=== PATIENT | female | born 1940 | race Caucasian/White ===

== ENCOUNTER → 2017-11-07 12:43 | Outpatient (CLI) | payer MEDICARE, BC, SELFPAY ==
[2017-11-07 14:45] LABS: AST(SGOT) 19 U/L (15-37); Alanine Aminotransfer ALT/SGPT 11 U/L (13-56); Albumin, Serum 4.2 g/dL (3.2-5.0); Alkaline Phosphatase 69 U/L (45-117); Anion Gap 8 (5-15); BUN 11 mg/dL (7-18); BUN/Creat Ratio 13.5 RATIO (10-20); Calcium,Total 9.1 mg/dL (8.5-10.1); Chloride 102 mmol/L (98-107); Creatinine, Serum 0.81 mg/dL (0.55-1.02); EST Glomerular Filtration Rate 72 mL/min (>60); Est Glom Filt Rate - Afr Amer 87 mL/min (>60); Glucose 82 mg/dL (74-106); Potassium 4.1 mmol/L (3.5-5.1); Protein, Total 8.2 g/dL (6.4-8.2); Sodium Level 137 mmol/L (136-145)
[2017-11-07 14:48] LABS: Absolute Lymphocyte Count 1.75 X10^3/ul (0.83-4.51); Absolute Neutrophil Count 2.6 X10^3/uL (2.0-7.7); Basophil# 0.03 X10^3/uL; Basophil% 0.6 % (0-1); Eosinophils% 1.9 % (0-5); Hematocrit 41.7 % (37-47); Hemoglobin 13.5 g/dl (12.0-15.0); Lymphocyte # 1.75 X10^3/ul (4.0); Lymphocyte % 33.7 % (19-41); Mean Corp Hgb Conc 32.4 g/gl (32-36); Mean Corpuscular Hgb 31.8 pg (27.0-32.0); Mean Corpuscular Volume 98.1 fL (81-99); Monocyte# 0.74 X10^3/uL; Monocyte% 14.2 % (0-10); Neutrophil # 2.58 X10^3/uL (2.7-7.7); Neutrophil % 49.6 % (47-70); Platelet Count 294 K/mm3 (150-450); RBC Distribution Width SD 48.5 fl (35.1-43.9); Red Blood Count 4.25 M/mm3 (4.2-5.4); White Blood Count 5.2 K/mm3 (4.4-11.0)
[2017-11-07 14:57] LABS: POSITIVE COUNT NO; POSITIVE DIFFERENTIAL NO; POSITIVE MORPHOLOGY NO
== END ==
PROVIDERS: Family Provider Internal Medicine; PCP Internal Medicine; Visit Provider Internal Medicine Rheumatology
DX: M05.70 Rheumatoid arthritis with rheumatoid factor of unspecified site without organ or systems involvement (principal); Z79.899 Other long term (current) drug therapy; M18.11 Unilateral primary osteoarthritis of first carpometacarpal joint, right hand; M17.0 Bilateral primary osteoarthritis of knee; M16.0 Bilateral primary osteoarthritis of hip
CPT/HCPCS: 36415; 80053; 85025

== ENCOUNTER → 2018-01-30 09:37 | Outpatient (CLI) | payer MEDICARE, BC, SELFPAY ==
[2018-01-30 12:15] LABS: Absolute Lymphocyte Count 1.69 X10^3/ul (0.83-4.51); Basophil# 0.03 X10^3/uL; Basophil% 0.6 % (0-1); Eosinophil# 0.19 X10^3/uL; Eosinophils% 4.1 % (0-5); Hematocrit 41.7 % (37-47); Hemoglobin 13.5 g/dl (12.0-15.0); Lymphocyte # 1.69 X10^3/ul (4.0); Lymphocyte % 36.2 % (19-41); Mean Corp Hgb Conc 32.4 g/gl (32-36); Mean Corpuscular Hgb 31.5 pg (27.0-32.0); Mean Corpuscular Volume 97.2 fL (81-99); Mean Platelet Vol. 9.2 fl (6.2-12.0); Monocyte# 0.76 X10^3/uL; Monocyte% 16.3 % (0-10); Neutrophil % 42.8 % (47-70); Platelet Count 314 K/mm3 (150-450); RBC Distribution Width CV 13.5 % (11.6-14.6); RBC Distribution Width SD 46.6 fl (35.1-43.9); Red Blood Count 4.29 M/mm3 (4.2-5.4); White Blood Count 4.7 K/mm3 (4.4-11.0)
[2018-01-30 12:31] LABS: AST(SGOT) 13 U/L (15-37); Alanine Aminotransfer ALT/SGPT 13 U/L (13-56); Albumin, Serum 4.2 g/dL (3.2-5.0); Alkaline Phosphatase 68 U/L (45-117); Anion Gap 9 (5-15); BUN 10 mg/dL (7-18); BUN/Creat Ratio 11.8 RATIO (10-20); Chloride 100 mmol/L (98-107); Creatinine, Serum 0.84 mg/dL (0.55-1.02); EST Glomerular Filtration Rate 69 mL/min (>60); Est Glom Filt Rate - Afr Amer 84 mL/min (>60); Globulin 4.1 g/dL (2.2-4.2); Glucose 86 mg/dL (74-106); Potassium 3.8 mmol/L (3.5-5.1); Protein, Total 8.3 g/dL (6.4-8.2); Sodium Level 136 mmol/L (136-145)
[2018-01-30 12:41] LABS: POSITIVE COUNT NO; POSITIVE DIFFERENTIAL NO; POSITIVE MORPHOLOGY NO
== END ==
PROVIDERS: Family Provider Internal Medicine; PCP Internal Medicine; Visit Provider Internal Medicine Rheumatology
DX: M05.70 Rheumatoid arthritis with rheumatoid factor of unspecified site without organ or systems involvement (principal); Z79.899 Other long term (current) drug therapy; M15.9 Polyosteoarthritis, unspecified; M18.11 Unilateral primary osteoarthritis of first carpometacarpal joint, right hand; M17.0 Bilateral primary osteoarthritis of knee; M16.0 Bilateral primary osteoarthritis of hip; M47.897 Other spondylosis, lumbosacral region; G20 Parkinson's disease; I10 Essential (primary) hypertension; E78.5 Hyperlipidemia, unspecified; E03.9 Hypothyroidism, unspecified
CPT/HCPCS: 36415; 80053; 85025

== ENCOUNTER → 2018-04-26 09:56 | Outpatient (CLI) | payer MEDICARE, BC, SELFPAY ==
[2018-04-26 12:24] LABS: Absolute Lymphocyte Count 1.55 X10^3/ul (0.83-4.51); Absolute Neutrophil Count 3.1 X10^3/uL (2.0-7.7); Basophil# 0.03 X10^3/uL; Basophil% 0.6 % (0-1); Eosinophils% 1.9 % (0-5); Hemoglobin 13.2 g/dl (12.0-15.0); Lymphocyte # 1.55 X10^3/ul (4.0); Lymphocyte % 29.1 % (19-41); Mean Corp Hgb Conc 31.4 g/gl (32-36); Mean Corpuscular Hgb 30.7 pg (27.0-32.0); Mean Corpuscular Volume 97.7 fL (81-99); Mean Platelet Vol. 9.1 fl (6.2-12.0); Monocyte# 0.53 X10^3/uL; Neutrophil # 3.11 X10^3/uL (2.7-7.7); Neutrophil % 58.4 % (47-70); Platelet Count 288 K/mm3 (150-450); RBC Distribution Width CV 13.8 % (11.6-14.6); RBC Distribution Width SD 49.1 fl (35.1-43.9); White Blood Count 5.3 K/mm3 (4.4-11.0)
[2018-04-26 12:28] LABS: POSITIVE COUNT NO; POSITIVE DIFFERENTIAL NO; POSITIVE MORPHOLOGY NO
[2018-04-26 12:33] LABS: ALB/GLOB Ratio 1.2 RATIO (0.9-2.4); AST(SGOT) 15 U/L (15-37); Alanine Aminotransfer ALT/SGPT 12 U/L (13-56); Albumin, Serum 4.2 g/dL (3.2-5.0); Alkaline Phosphatase 76 U/L (45-117); Anion Gap 10 (5-15); BUN 7 mg/dL (7-18); BUN/Creat Ratio 9.4 RATIO (10-20); Chloride 102 mmol/L (98-107); Creatinine, Serum 0.74 mg/dL (0.55-1.02); EST Glomerular Filtration Rate 80 mL/min (>60); Est Glom Filt Rate - Afr Amer 97 mL/min (>60); Globulin 3.4 g/dL (2.2-4.2); Glucose 83 mg/dL (74-106); Potassium 4.2 mmol/L (3.5-5.1); Protein, Total 7.6 g/dL (6.4-8.2); Sodium Level 138 mmol/L (136-145)
== END ==
PROVIDERS: Family Provider Internal Medicine; PCP Internal Medicine; Visit Provider Internal Medicine Rheumatology
DX: M05.70 Rheumatoid arthritis with rheumatoid factor of unspecified site without organ or systems involvement (principal); Z79.899 Other long term (current) drug therapy; M15.9 Polyosteoarthritis, unspecified; M18.11 Unilateral primary osteoarthritis of first carpometacarpal joint, right hand; M17.0 Bilateral primary osteoarthritis of knee; M16.0 Bilateral primary osteoarthritis of hip; M47.897 Other spondylosis, lumbosacral region; G20 Parkinson's disease; I10 Essential (primary) hypertension; E78.5 Hyperlipidemia, unspecified; E03.9 Hypothyroidism, unspecified
CPT/HCPCS: 36415; 80053; 85025

== ENCOUNTER → 2018-07-18 09:28 | Outpatient (CLI) | payer MEDICARE, BC, SELFPAY ==
[2018-07-18 11:59] LABS: Absolute Lymphocyte Count 1.68 X10^3/ul (0.83-4.51); Absolute Neutrophil Count 3.4 X10^3/uL (2.0-7.7); Basophil# 0.03 X10^3/uL; Basophil% 0.5 % (0-1); Eosinophil# 0.14 X10^3/uL; Eosinophils% 2.4 % (0-5); Hematocrit 42.4 % (37-47); Hemoglobin 13.5 g/dl (12.0-15.0); Lymphocyte # 1.68 X10^3/ul (4.0); Lymphocyte % 28.6 % (19-41); Mean Corp Hgb Conc 31.8 g/gl (32-36); Mean Corpuscular Hgb 31.7 pg (27.0-32.0); Mean Corpuscular Volume 99.5 fL (81-99); Mean Platelet Vol. 9.4 fl (6.2-12.0); Monocyte# 0.66 X10^3/uL; Monocyte% 11.2 % (0-10); Neutrophil # 3.36 X10^3/uL (2.7-7.7); Neutrophil % 57.3 % (47-70); Platelet Count 287 K/mm3 (150-450); RBC Distribution Width CV 14.3 % (11.6-14.6); RBC Distribution Width SD 50.9 fl (35.1-43.9); Red Blood Count 4.26 M/mm3 (4.2-5.4); White Blood Count 5.9 K/mm3 (4.4-11.0)
[2018-07-18 12:01] LABS: POSITIVE COUNT NO; POSITIVE DIFFERENTIAL NO; POSITIVE MORPHOLOGY NO
[2018-07-18 12:27] LABS: ALB/GLOB Ratio 1.1 RATIO (0.9-2.4); AST(SGOT) 14 U/L (15-37); Alanine Aminotransfer ALT/SGPT 13 U/L (13-56); Albumin, Serum 4.1 g/dL (3.2-5.0); Alkaline Phosphatase 69 U/L (45-117); Anion Gap 7 (5-15); BUN 13 mg/dL (7-18); BUN/Creat Ratio 16.2 RATIO (10-20); Calcium,Total 8.8 mg/dL (8.5-10.1); Chloride 101 mmol/L (98-107); EST Glomerular Filtration Rate 73 mL/min (>60); Est Glom Filt Rate - Afr Amer 89 mL/min (>60); Globulin 3.9 g/dL (2.2-4.2); Glucose 83 mg/dL (74-106); Sodium Level 135 mmol/L (136-145)
--- OUTSIDE RECORDS SUMMARY | 2018-09-12 10:26 | XMS RPT_ITS ---
:1940 Author Organization OHIP Support Name Relationship Address Phone AUNG ORONA Unavailable [id number] + [place] [address] GISSELLE GAITAN Unavailable [address] + [place] [address] R Unavailable Unavailable Unavailable AUNG ORONA Unavailable [id number] +[phone] [place] [address] GISSELLE GAITAN Unavailable [address] + [place] [address] R Unavailable Unavailable Unavailable AUNG ORONA Unavailable [address] +[phone] [place] [address] GISSELLE GAITAN Unavailable [address] + [place] [address] R Unavailable Unavailable Unavailable AUNG ORONA Unavailable [id number] [facility] [address] + [place] [address] GISSELLE GAITAN Unavailable [address] [facility] [address] + [place] [address] R Unavailable Unavailable Unavailable AUNG ORONA Unavailable [address] [facility] [address] +[phone] [place] [address] GISSELLE GAITAN Unavailable [address] [facility] [address] +[phone] [place] [address] R Unavailable Unavailable Unavailable Care Team Providers Name Role Phone LUCIAN BAHENA Referring Unavailable LUCIAN BAHENA Attending Unavailable LUCIAN BAHENA Referring Unavailable LUCIAN BAHENA Referring Unavailable LUCIAN BAHENA Referring Unavailable LUCIAN BAHENA Attending Unavailable LUCIAN BAHENA Referring Unavailable Mercy Rajput Attending Unavailable Lucian Bahena Primary Care Unavailable Mercy Rajput Attending Unavailable Lucian Bahena Primary Care Unavailable Mercy Rajput Attending Unavailable Mercy Rajput Referring Unavailable Lucian Bahena Primary Care Unavailable Mercy Rajput Attending Unavailable Mercy Rajput Referring Unavailable Lucian Bahena Primary Care Unavailable Mercy Rajput Attending Unavailable Mercy Rajput Referring Unavailable Lucian Bahena Primary Care Unavailable PROBLEMS PROBLEMS DATE TYPE CONDITION / CODE ATTENDING STATUS SOURCE 11/12/2017 Active Encounter for NA Active screening for [facility] [place] malignant Repository neoplasm of colon / Z12.11(ICD-10) 10/26/2017 Active Other fci NA Active (current) drug [facility] [place] therapy / Repository Z79.899(ICD-10) PROCEDURES PROCEDURES No Procedure Records FoundRESULTS RESULTS CBC W/DIFF, AUTOMATED Collected: 07/18/2018 Status: F Source: [place] 9:33 AM [facility] REPOSITORY TYPE CODE TESTS RESULT OUT OF RANGE REFERENCE UNITS LAB L100.1000 4.4-11.0 K/mm3 Normal WBC 5.9 LAB L100.1200 4.2-5.4 M/mm3 Normal RBC 4.26 LAB L100.1300 12.0-15.0 g/dl Normal HGB 13.5 LAB L100.1400 37-47 % Normal HCT 42.4 LAB L100.1500 81-99 fL High MCV 99.5 LAB L100.1600 27.0-32.0 pg Normal MCH 31.7 LAB L100.1700 32-36 g/gl Low MCHC 31.8 LAB L100.1810 11.6-14.6 % Normal RDW CV 14.3 LAB L100.1820 35.1-43.9 fl High RDW SD 50.9 LAB L100.1900 150-450 K/mm3 Normal PLT 287 LAB L100.2000 6.2-12.0 fl Normal MPV 9.4 LAB L100.2100 47-70 % Normal NEUT% 57.3 LAB L100.2200 19-41 % Normal LY% 28.6 LAB L100.2300 0-10 % High MONO% 11.2 LAB L100.2400 0-5 % Normal EO% 2.4 LAB L100.2500 0-1 % Normal BASO% 0.5 LAB L100.2550 0.0-0.9 % Normal IM GRAN % 0.000 Result Comment: IG% - Immature Granulocytes (promyelocytes, myelocytes and metamyelocytes) > 1% indicates that a LEFT SHIFT is Present. LAB L100.2620 2.0-7.7 X10 3/uL Normal Absolute Neut 3.4 LAB L100.2720 0.83-4.51 X10 3/ul Normal Absolute Lymph 1.68 Performed By: #### L100.0100 #### [facility] [address] [place], [address] COMPREHENSIVE METABOLIC Collected: 07/18/2018 Status: F Source: [facility] 9:33 AM [facility] REPOSITORY TYPE CODE TESTS RESULT OUT OF RANGE REFERENCE UNITS LAB L501.0100 74-106 mg/dL Normal GLU 83 Result Comment: Please note revised GLUCOSE reference range effective 2017. LAB L501.1000 7-18 mg/dL Normal BUN 13 LAB L501.1100 0.55-1.02 mg/dL Normal CREAT,SERUM 0.80 Result Comment: The validity of the calculated GFR AND GFRAA in patients over 70 years has not been determined. Clinical correlation is essential. LAB L501.1110 >60 mL/min Normal EST GFR 73 Result Comment: Non- GFR Calc LAB L501.1115 >60 mL/min Normal EST GFR - AA 89 Result Comment: GFR Calc LAB L501.1300 10-20 RATIO Normal BUN/CRE 16.2 LAB L501.1500 6.4-8.2 g/dL T Normal PROT 8.0 LAB L501.1800 3.2-5.0 g/dL Normal ALB 4.1 LAB L501.1950 2.2-4.2 g/dL Normal GLOB 3.9 LAB L501.2000 0.9-2.4 RATIO Normal A/G 1.1 LAB L501.2200 8.5-10.1 mg/dL CA Normal 8.8 LAB L501.4100 15-37 U/L Low AST 14 LAB L501.4305 45-117 U/L Normal ALK P 69 LAB L501.4405 13-56 U/L Normal ALT 13 LAB L501.4600 0.20-1.00 mg/dL High T BILI 1.20 LAB L501.5300 136-145 mmol/L Low NA 135 LAB L501.5600 3.5-5.1 mmol/L K Normal 4.0 LAB L501.5900 98-107 mmol/L CL Normal 101 LAB L501.6100 21.0-32.0 mmol/L Normal CO2 27.0 LAB L501.6200 5-15 Normal GAP 7 Performed By: #### L500.4050 #### [facility] [place], [address] PROGRESS Observed: 06/07/2018 Status: COMPLETED Source: [place] 10:54 AM [facility] [place] REPOSITORY HNO ID: [id number] Author: Marvel Santana LPN Service: (none) Author Type: (none) Type: Progress Notes Filed: 06/07/2018 10:55 AM Note Text: 77 year old female here for INACTIVATED INFLUENZA VACCINE. 1369-7706 Season Patient is identified by name and date of : Yes [] CONTRAINDICATIONS color enhanced section Age less than 6 months? No Allergy to eggs, chicken, chicken feathers, or chicken dander? No Allergy to thimerosal (a preservative) or formaldehyde, gelatin? No History of severe reaction to any vaccine component or a previous dose of influenza vaccination? No History of Guillain-Lovelock Syndrome within 6 weeks after a previous influenza vaccine? No Patient is not moderately or severely ill? No Current temperature greater or equal to 100.4F? No History of Bone Marrow Transplant prior 6 months or solid organ transplant in the past 3 months ? No History of fainting after a prior injection or medical procedure? No- ? If patient has fainted in the past, the CDC recommends sitting or lying down for 15 minutes after the vaccination. [] VERIFICATION color enhanced section Was the answer Yes for any of the above contraindications? No contraindications present. Acceptable to proceed with vaccine. Patient/guardian agrees the above answers are true to the best of their knowledge? Yes Flu vaccine information sheet given? Yes See immunization activity in [facility] for details of immunizations adminstered today. Patient age: [age] year old For The 0974-2844 Flu Season 6-35 months old: Fluzone 0.25 ml - IM (Preservative Free) 3 years of age: Fluzone 0.5 ml - IM (Preservative Free) 3 years and older: Fluzone 0.5 ml- IM-(with Preservatives) 65+ years old: 2-49 years old Fluzone High-Dose 0.5 ml - IM (Preservative Free) FLUMIST- intranasal REMEMBER: If patient is less than 9 years of age and this is the first vaccine of Influenza to be received in any flu season, they should receive a second dose in one months time. CNNURSE Observed: 06/07/2018 Status: COMPLETED Source: [place] 10:30 AM [facility] REPOSITORY Nurse Visit (FAMPWS) GRACIELA ORONA ([id number]) 1940 F [facility] Date Time Provider Department 06/07/18 10:30 AM [facility] During your visit today, we recorded the following information about you: Temperature 98 degrees Marvel Santana LPN 06/07/2018 10:55 AM Signed 77 year old female here for INACTIVATED INFLUENZA VACCINE. 0130-2705 Season Patient is identified by name and date of : Yes [] CONTRAINDICATIONS color enhanced section Age less than 6 months? No Allergy to eggs, chicken, chicken feathers, or chicken dander? No Allergy to thimerosal (a preservative) or formaldehyde, gelatin? No History of severe reaction to any vaccine component or a previous dose of influenza vaccination? No History of Guillain-Lovelock Syndrome within 6 weeks after a previous influenza vaccine? No Patient is not moderately or severely ill? No Current temperature greater or equal to 100.4F? No History of Bone Marrow Transplant prior 6 months or solid organ transplant in the past 3 months ? No History of fainting after a prior injection or medical procedure? No- ? If patient has fainted in the past, the CDC recommends sitting or lying down for 15 minutes after the vaccination. [] VERIFICATION color enhanced section Was the answer Yes for any of the above contraindications? No contraindications present. Acceptable to proceed with vaccine. Patient/guardian agrees the above answers are true to the best of their knowledge? Yes Flu vaccine information sheet given? Yes See immunization activity in [facility] for details of immunizations adminstered today. Patient age: [age] year old For The 1667-2383 Flu Season 6-35 months old: Fluzone 0.25 ml - IM (Preservative Free) 3 years of age: Fluzone 0.5 ml - IM (Preservative Free) 3 years and older: Fluzone 0.5 ml- IM-(with Preservatives) 65+ years old: 2-49 years old Fluzone High-Dose 0.5 ml - IM (Preservative Free) FLUMIST- intranasal REMEMBER: If patient is less than 9 years of age and this is the first vaccine of Influenza to be received in any flu season, they should receive a second dose in one months time. Referring Provider: LUCIAN BAHENA [[id number]] Allergies As of Date: 06/07/2018 Noted Allergy Reaction BACTRIM (SULFAMETHOXAZOLE) 12/15/2009 7 - Swelling ESTROGENS 02/05/2006 14 - Other: See Comments Comments: Visual spots. STATINS ([id number]-MTB REDUCTAS*11/06/2008 Comments: Muscle pain Date Reviewed: 05/08/2018 Reviewed by: Gala Gonzalez LPN - Fully Assessed Reason for Visit: Imm/Inj [58] Cmt: Flu Vaccine Primary Visit Diagnosis:Need for vaccination [Z23] Order(s):INFLUENZA SEASONAL HIGH DOSE AGE 65+ [[id number]] Order #: [id number] Prescriptions as of 06/07/2018 Sig: LEVOTHYROXINE 88 MCG TABLET Take 1 tablet by mouth once d* CARBIDOPA 25 MG-LEVODOPA 100 * Take 1 tablet by mouth five t* DILTIAZEM SR 180 MG 24 HR CAP Take 1 capsule by mouth once * TRIAMCINOLONE ACETONIDE 0.1 %* Apply 1 application to affect* TRAMADOL 50 MG TABLET Take 1 tablet by mouth every * NYSTATIN 100,000 UNIT/GRAM TO* Apply 1 application to affect* BIOTIN 5 MG CAPSULE Take 1 capsule by mouth once * OMEGA-3 FATTY ACIDS 1,000 MG * Take 1 capsule by mouth once * LEUCOVORIN CALCIUM 15 MG TABL* Take 1 tablet by mouth once e* METHOTREXATE SODIUM 2.5 MG TA* Take 6 tablets by mouth once * * ASCORBIC ACID (VITAMIN C) 500* Take 1 tablet by mouth once d* * FOLIC ACID 1 MG TABLET Take two (2) tablets daily. * ECOTRIN LOW STRENGTH 81 MG TA* Take one(1) tablet daily. * CENTRUM SILVER TABLET Take one(1) tablet daily. Problem List As Of Date 06/07/2018 Noted Resolved BENIGN HYPERTENSION [I10] INVALID FOR* Other hyperlipidemia [E78.49] INVALID FOR* Hypothyroidism [E03.9] INVALID FOR* Chronic rhinitis [J31.0] INVALID FOR*06/04/2014 Personal history of other malignant neoplasm of*INVALID FOR* More... Rheumatoid arthritis (HCC) [M06.9] INVALID FOR* Osteoarthritis [M19.90] INVALID FOR*11/01/2017 OA (osteoarthritis) of knee [M17.10] INVALID FOR* More... Parkinsonism (HCC) [G20] INVALID FOR* More... Abnormal mammogram, unspecified [R92.8] INVALID FOR*02/01/2017 Clostridium difficile diarrhea [A04.72] INVALID FOR*03/16/2016 Debility [R53.81] INVALID FOR* Sinus tachycardia [R00.0] INVALID FOR* Encounter Status:Closed by MARVEL SANTANA LPN on 06/07/18 PROGRESS Observed: 05/08/2018 Status: COMPLETED Source: [place] 10:21 AM [facility] REPOSITORY HNO ID: [id number] Author: Lucian Bahena Service: (none) Author Type: Physician Type: Progress Notes Filed: 05/08/2018 10:39 AM Note Text: This note was created using Fulhamriter. Subjective Graciela Orona is a 77 year old female here for follow up. Listed conditions were stable. Recent labs from Dr. Rajput were noted. She was doing well. ACTIVE PROBLEM LIST Essential Hypertension, Benign Other Hyperlipidemia Hypothyroidism Personal history of other malignant neoplasm of skin Rheumatoid Arthritis (Hcc) Oa (Osteoarthritis) of Knee Parkinsonism (Hcc) Debility Sinus Tachycardia Current Outpatient Prescriptions: carbidopa-levodopa (SINEMET 25-100) 25-100 mg per tablet Take 1 tablet by mouth five times daily. Dr. Tian, [facility]. SYNTHROID 88 mcg tablet Take 1 tablet by mouth once daily. diltiazem CD (CARDIZEM CD) 180 mg 24 hr capsule Take 1 capsule by mouth once daily. triamcinolone acetonide (KENALOG) 0.1 % cream Apply 1 application to affected area three times daily. Apply sparingly to area for rash/itching. traMADol (ULTRAM) 50 mg tablet Take 1 tablet by mouth every 8 hours as needed for Pain. nystatin (MYCOSTATIN) powder Apply 1 application to affected area four times daily. biotin 5 mg caspule Take 1 capsule by mouth once daily. omega-3 fatty acids 1,000 mg cap Take 1 capsule by mouth once daily. leucovorin (LEUCOVORIN) 15 mg tablet Take 1 tablet by mouth once each week. Dr. Rajput Methotrexate Sodium (RHEUMATREX) 2.5 mg tablet Take 6 tablets by mouth once each week. ascorbic acid (VITAMIN C) 500 mg ORAL tablet Take 1 tablet by mouth once daily. folic acid 1 mg ORAL tablet Take two (2) tablets daily. aspirin(ECOTRIN LOW STRENGTH 81 MG TAB) Take one(1) tablet daily. CENTRUM SILVER TAB Take one(1) tablet daily. No current facility-administered medications for this visit. Review of Systems Respiratory: Negative. Cardiovascular: Negative. Musculoskeletal: Positive for arthralgias. Neurological: Positive for tremors and weakness. Negative for light-headedness and headaches. Objective BP 136/82 (BP Site: Left Arm, BP Position: Sitting, BP Cuff Size: Regular Adult) Pulse 108 Temp 36.7 ?C (98 ?F) (Left Tympanic) Resp 20 Wt 89.6 kg (197 lb 9.6 oz) BMI 36.73 kg/m? Physical Exam Constitutional: No distress. Cardiovascular: Regular rhythm. Tachycardia present. Exam reveals no gallop. No murmur heard. Pulmonary/Chest: Breath sounds normal. Musculoskeletal: She exhibits edema. 1-2+ Neurological: She is alert. She exhibits abnormal muscle tone. Gait abnormal. Ambulatory with rollator. Assessment and Plan 1. Secondary parkinsonism, unspecified secondary Parkinsonism type (HCC) - ICD9: 332.1, ICD10: G21.9 (primary diagnosis) Per [facility]. 2. Sinus tachycardia - ICD9: 427.89, ICD10: R00.0 Stable. 3. Essential hypertension, benign - ICD9: 401.1, ICD10: I10 - fair control - Continue current medication(s) due to risk of autonomic dysfunction and hypotension. 4. Debility - ICD9: 799.3, ICD10: R53.81 Stable. 5. Need for shingles vaccine - ICD9: V04.89, ICD10: Z23 VIS given. Lucian Bahena MD CNOV Observed: 05/08/2018 Status: COMPLETED Source: [place] 10:00 AM [facility] REPOSITORY Office Visit (INTMWS) GRACIELA ORONA ([id number]) 1940 F T Date Time Provider Department 05/08/18 10:00 AM LUCIAN BAHENA INTCathleenWS During your visit today, we recorded the following information about you: Temperature Pulse Respiration Blood pressure 98 degrees 108/minute 20/minute 136/82 Weight 89.6 kg Lucian Bahena MD 05/08/2018 10:39 AM Signed This note was created using NoteWriter. Siobhan Canoman is a 77 year old female here for follow up. Listed conditions were stable. Recent labs from Dr. Rajput were noted. She was doing well. ACTIVE PROBLEM LIST Essential Hypertension, Benign Other Hyperlipidemia Hypothyroidism Personal history of other malignant neoplasm of skin Rheumatoid Arthritis (Hcc) Oa (Osteoarthritis) of Knee Parkinsonism (Hcc) Debility Sinus Tachycardia Current Outpatient Prescriptions: carbidopa-levodopa (SINEMET 25-100) 25-100 mg per tablet Take 1 tablet by mouth five times daily. Dr. Tian, [facility]. SYNTHROID 88 mcg tablet Take 1 tablet by mouth once daily. diltiazem CD (CARDIZEM CD) 180 mg 24 hr capsule Take 1 capsule by mouth once daily. triamcinolone acetonide (KENALOG) 0.1 % cream Apply 1 application to affected area three times daily. Apply sparingly to area for rash/itching. traMADol (ULTRAM) 50 mg tablet Take 1 tablet by mouth every 8 hours as needed for Pain. nystatin (MYCOSTATIN) powder Apply 1 application to affected area four times daily. biotin 5 mg caspule Take 1 capsule by mouth once daily. omega-3 fatty acids 1,000 mg cap Take 1 capsule by mouth once daily. leucovorin (LEUCOVORIN) 15 mg tablet Take 1 tablet by mouth once each week. Dr. Rajput Methotrexate Sodium (RHEUMATREX) 2.5 mg tablet Take 6 tablets by mouth once each week. ascorbic acid (VITAMIN C) 500 mg ORAL tablet Take 1 tablet by mouth once daily. folic acid 1 mg ORAL tablet Take two (2) tablets daily. aspirin(ECOTRIN LOW STRENGTH 81 MG TAB) Take one(1) tablet daily. CENTRUM SILVER TAB Take one(1) tablet daily. No current facility-administered medications for this visit. Review of Systems Respiratory: Negative. Cardiovascular: Negative. Musculoskeletal: Positive for arthralgias. Neurological: Positive for tremors and weakness. Negative for light-headedness and headaches. Objective BP 136/82 (BP Site: Left Arm, BP Position: Sitting, BP Cuff Size: Regular Adult) Pulse 108 Temp 36.7 ?C (98 ?F) (Left Tympanic) Resp 20 Wt 89.6 kg (197 lb 9.6 oz) BMI 36.73 kg/m? Physical Exam Constitutional: No distress. Cardiovascular: Regular rhythm. Tachycardia present. Exam reveals no gallop. No murmur heard. Pulmonary/Chest: Breath sounds normal. Musculoskeletal: She exhibits edema. 1-2+ Neurological: She is alert. She exhibits abnormal muscle tone. Gait abnormal. Ambulatory with rollator. Assessment and Plan 1. Secondary parkinsonism, unspecified secondary Parkinsonism type (HCC) - ICD9: 332.1, ICD10: G21.9 (primary diagnosis) Per [facility]. 2. Sinus tachycardia - ICD9: 427.89, ICD10: R00.0 Stable. 3. Essential hypertension, benign - ICD9: 401.1, ICD10: I10 - fair control - Continue current medication(s) due to risk of autonomic dysfunction and hypotension. 4. Debility - ICD9: 799.3, ICD10: R53.81 Stable. 5. Need for shingles vaccine - ICD9: V04.89, ICD10: Z23 VIS given. MD Lucian Kamara MD 05/08/2018 10:22 AM Signed Recombinant shingles vaccine (Shingrix) is recommended; 2 doses 2-6 months apart. Please read information, check with your insurance, and call to schedule vaccination. You may also be directed to your local pharmacy. Referring Provider: LUCIAN BAHENA [[id number]] Allergies As of Date: 05/08/2018 Noted Allergy Reaction BACTRIM (SULFAMETHOXAZOLE) 12/15/2009 7 - Swelling ESTROGENS 02/05/2006 14 - Other: See Comments Comments: Visual spots. STATINS (TGDRIOP-BPI-FTI REDUCTAS*11/06/2008 Comments: Muscle pain Date Reviewed: 05/08/2018 Reviewed by: Gala Gonzalez LPN - Fully Assessed Reason for Visit: F/U 6 Month [444] Primary Visit Diagnosis:Secondary parkinsonism, unspecified secondary Parkinsonism type (HCC) [G21.9] Other Visit Diagnoses:Sinus tachycardia [R00.0] Essential hypertension, benign [I10] Debility [R53.81] Need for shingles vaccine [Z23] Prescriptions as of 05/08/2018 Sig: CARBIDOPA 25 MG-LEVODOPA 100 * Take 1 tablet by mouth five t* SYNTHROID 88 MCG TABLET Take 1 tablet by mouth once d* DILTIAZEM SR 180 MG 24 HR CAP Take 1 capsule by mouth once * TRIAMCINOLONE ACETONIDE 0.1 %* Apply 1 application to affect* TRAMADOL 50 MG TABLET Take 1 tablet by mouth every * NYSTATIN 100,000 UNIT/GRAM TO* Apply 1 application to affect* BIOTIN 5 MG CAPSULE Take 1 capsule by mouth once * OMEGA-3 FATTY ACIDS 1,000 MG * Take 1 capsule by mouth once * LEUCOVORIN CALCIUM 15 MG TABL* Take 1 tablet by mouth once e* METHOTREXATE SODIUM 2.5 MG TA* Take 6 tablets by mouth once * * ASCORBIC ACID (VITAMIN C) 500* Take 1 tablet by mouth once d* * FOLIC ACID 1 MG TABLET Take two (2) tablets daily. * ECOTRIN LOW STRENGTH 81 MG TA* Take one(1) tablet daily. * CENTRUM SILVER TABLET Take one(1) tablet daily. Medication notes this encounter TRIAMCINOLONE ACETONIDE 0.1 % TOPICAL CREAM >> Gala Gonzalez LPN 05/08/2018 9:59 AM >> GALA GONZALEZ LPN SunMay 08, 2018 9:59 AM PRN NYSTATIN 100,000 UNIT/GRAM TOPICAL POWDER >> Gala Gonzalez LPN 05/08/2018 9:59 AM >> GALA GONZALEZ LPN SunMay 08, 2018 9:59 AM PRN MELOXICAM 7.5 MG TABLET >> Gala Gonzalez LPN 05/08/2018 9:58 AM >> GALA GONZALEZ LPN SunMay 08, 2018 9:58 AM Discontinued Problem List As Of Date 05/08/2018 Noted Resolved BENIGN HYPERTENSION [I10] INVALID FOR* Other hyperlipidemia [E78.4] INVALID FOR* Hypothyroidism [E03.9] INVALID FOR* Chronic rhinitis [J31.0] INVALID FOR*06/04/2014 Personal history of other malignant neoplasm of*INVALID FOR* More... Rheumatoid arthritis (HCC) [M06.9] INVALID FOR* Osteoarthritis [M19.90] INVALID FOR*11/01/2017 OA (osteoarthritis) of knee [M17.10] INVALID FOR* More... Parkinsonism (HCC) [G20] INVALID FOR* More... Abnormal mammogram, unspecified [R92.8] INVALID FOR*02/01/2017 Clostridium difficile diarrhea [A04.72] INVALID FOR*03/16/2016 Debility [R53.81] INVALID FOR* Sinus tachycardia [R00.0] INVALID FOR* Other instructions from your clinician: Recombinant shingles vaccine (Shingrix) is recommended; 2 doses 2-6 months apart. Please read information, check with your insurance, and call to schedule vaccination. You may also be directed to your local pharmacy. Medications Discontinued During This Encounter meloxicam (MOBIC) 7.5 mg tablet 0 07/23/2014 05/08/2018 Class: Historical Med Route: ORAL Sig: Take 1 tablet by mouth once daily. Disc: Reason for discontinue is not on file. carbidopa-levodopa (SINEMET 25-100) * 07/24/2016 05/08/2018 Class: Med Update Route: ORAL Sig: Take 1 tablet by mouth four times daily. Patient taking differently: Take 1 tablet by mouth five times daily. Disc: Reason for discontinue is not on file. Disposition: Return in about 6 months (around 11/05/2018). Follow-up and Disposition History Recorded Encounter Status:Closed by LUCIAN BAHENA MD on 05/08/18 CBC W/DIFF, AUTOMATED Collected: 04/26/2018 Status: F Source: [place] 10:00 AM [facility] REPOSITORY TYPE CODE TESTS RESULT OUT OF RANGE REFERENCE UNITS LAB L100.1000 4.4-11.0 K/mm3 Normal WBC 5.3 LAB L100.1200 4.2-5.4 M/mm3 Normal RBC 4.30 LAB L100.1300 12.0-15.0 g/dl Normal HGB 13.2 LAB L100.1400 37-47 % Normal HCT 42.0 LAB L100.1500 81-99 fL Normal MCV 97.7 LAB L100.1600 27.0-32.0 pg Normal MCH 30.7 LAB L100.1700 32-36 g/gl Low MCHC 31.4 LAB L100.1810 11.6-14.6 % Normal RDW CV 13.8 LAB L100.1820 35.1-43.9 fl High RDW SD 49.1 LAB L100.1900 150-450 K/mm3 Normal PLT 288 LAB L100.2000 6.2-12.0 fl Normal MPV 9.1 LAB L100.2100 47-70 % Normal NEUT% 58.4 LAB L100.2200 19-41 % Normal LY% 29.1 LAB L100.2300 0-10 % Normal MONO% 10.0 LAB L100.2400 0-5 % Normal EO% 1.9 LAB L100.2500 0-1 % Normal BASO% 0.6 LAB L100.2550 0.0-0.9 % Normal IM GRAN % 0.000 Result Comment: IG% - Immature Granulocytes (promyelocytes, myelocytes and metamyelocytes) > 1% indicates that a LEFT SHIFT is Present. LAB L100.2620 2.0-7.7 X10 3/uL Normal Absolute Neut 3.1 LAB L100.2720 0.83-4.51 X10 3/ul Normal Absolute Lymph 1.55 Performed By: #### L100.0100 #### [facility] [address] [place], [place], [id number] COMPREHENSIVE METABOLIC Collected: 04/26/2018 Status: F Source: [facility] 10:00 AM [facility] REPOSITORY TYPE CODE TESTS RESULT OUT OF RANGE REFERENCE UNITS LAB L501.0100 74-106 mg/dL Normal GLU 83 Result Comment: Please note revised GLUCOSE reference range effective 2017. LAB L501.1000 7-18 mg/dL Normal BUN 7 LAB L501.1100 0.55-1.02 mg/dL Normal CREAT,SERUM 0.74 Result Comment: The validity of the calculated GFR AND GFRAA in patients over 70 years has not been determined. Clinical correlation is essential. LAB L501.1110 >60 mL/min Normal EST GFR 80 Result Comment: Non- GFR Calc LAB L501.1115 >60 mL/min Normal EST GFR - AA 97 Result Comment: GFR Calc LAB L501.1300 10-20 RATIO Low BUN/CRE 9.4 LAB L501.1500 6.4-8.2 g/dL Normal T PROT 7.6 LAB L501.1800 3.2-5.0 g/dL Normal ALB 4.2 LAB L501.1950 2.2-4.2 g/dL Normal GLOB 3.4 LAB L501.2000 0.9-2.4 RATIO Normal A/G 1.2 LAB L501.2200 8.5-10.1 mg/dL Normal CA 9.0 LAB L501.4100 15-37 U/L Normal AST 15 LAB L501.4305 45-117 U/L Normal ALK P 76 LAB L501.4405 13-56 U/L Low ALT 12 LAB L501.4600 0.20-1.00 mg/dL Normal T BILI 0.80 LAB L501.5300 136-145 mmol/L Normal NA 138 LAB L501.5600 3.5-5.1 mmol/L Normal K 4.2 LAB L501.5900 98-107 mmol/L Normal CL 102 LAB L501.6100 21.0-32.0 mmol/L Normal CO2 26.0 LAB L501.6200 5-15 Normal GAP 10 Performed By: #### L500.4050 #### [facility] [address] [place], [address] PROGRESS Observed: 04/10/2018 Status: COMPLETED Source: [place] 12:18 PM [facility] REPOSITORY HNO ID: [id number] Author: Khushboo Chauhan) Desi Service: (none) Author Type: Physician Nurse Emergency Type: Progress Notes Filed: 04/10/2018 12:22 PM Note Text: Subjective HPI Pt presents with dysuria, frequency and urgency for 1 day. She denies fevers or chills. No back pain. No abdominal pain. She has had UTIs in the past, the last in November this year. . No nausea or vomiting. No hematuria. Review of Systems Constitutional: Negative. Negative for chills and fever. Gastrointestinal: Negative. Negative for abdominal pain and vomiting. Genitourinary: Positive for dysuria, frequency and urgency. Negative for flank pain and hematuria. Musculoskeletal: Negative. All other systems reviewed and are negative. PAST MEDICAL HISTORY Diagnosis Date - Chronic rhinitis 02/05/2006 - Clostridium difficile diarrhea 12/09/2015 - Debility 02/08/2017 - Dislocation closed, shoulder 05/28/2010 Left shoulder, accidental fall - Diverticulosis of colon (without mention of hemorrhage) - Essential hypertension, benign 02/05/2006 - OA (osteoarthritis) of knee 06/04/2014 - Other and unspecified hyperlipidemia 02/05/2006 - Parkinsonism (HCC) 07/17/2014 Dr. Sue Rubalcava. Neurology. - Rheumatoid arthritis(714.0) 2009 - Unspecified hypothyroidism 02/05/2006 Current Outpatient Prescriptions: SYNTHROID 88 mcg tablet Take 1 tablet by mouth once daily. Disp: 90 tablet Rfl: 1 diltiazem CD (CARDIZEM CD) 180 mg 24 hr capsule Take 1 capsule by mouth once daily. Disp: 90 capsule Rfl: 3 triamcinolone acetonide (KENALOG) 0.1 % cream Apply 1 application to affected area three times daily. Apply sparingly to area for rash/itching. Disp: 80 g Rfl: 0 carbidopa-levodopa (SINEMET 25-100) 25-100 mg per tablet Take 1 tablet by mouth four times daily. Disp: Rfl: traMADol (ULTRAM) 50 mg tablet Take 1 tablet by mouth every 8 hours as needed for Pain. Disp: Rfl: nystatin (MYCOSTATIN) powder Apply 1 application to affected area four times daily. Disp: 1 Bottle Rfl: 0 meloxicam (MOBIC) 7.5 mg tablet Take 1 tablet by mouth once daily. Disp: Rfl: 0 biotin 5 mg caspule Take 1 capsule by mouth once daily. Disp: Rfl: 0 omega-3 fatty acids 1,000 mg cap Take 1 capsule by mouth once daily. Disp: Rfl: 0 leucovorin (LEUCOVORIN) 15 mg tablet Take 1 tablet by mouth once each week. Dr. Rajput Disp: Rfl: Methotrexate Sodium (RHEUMATREX) 2.5 mg tablet Take 6 tablets by mouth once each week. Disp: Rfl: 0 ascorbic acid (VITAMIN C) 500 mg ORAL tablet Take 1 tablet by mouth once daily. Disp: Rfl: 0 folic acid 1 mg ORAL tablet Take two (2) tablets daily. Disp: Rfl: aspirin(ECOTRIN LOW STRENGTH 81 MG TAB) Take one(1) tablet daily. Disp: Rfl: 0 CENTRUM SILVER TAB Take one(1) tablet daily. Disp: Rfl: 0 nitrofurantoin monohydrate and macrocrystal (MACROBID) 100 mg capsule Take 1 capsule by mouth twice daily with meals for 7 days. Disp: 14 capsule Rfl: 0 No current facility-administered medications for this visit. PAST SURGICAL HISTORY Procedure Laterality Date - COLONOSCOP W/ OR W/O [facility] SPEC 07/26/2006 Colonoscopy - REMOVAL OF TONSILS,<10 Y/O 1954 Tonsillectomy - TOTAL HIP JOINT REPLACEMENT Right - TOTAL HIP REPLACEMENT Left January Hip replacement, total, LEFT FAMILY HISTORY Problem Relation Age of Onset - Cancer Mother Pancreatic cancer - GI Father of transfusion related Hep. C - Arthritis Father Hip replacements, multiple - Cancer Paternal Grandmother Social History Substance Use Topics - Smoking status: Never Smoker - Smokeless tobacco: Never Used - Alcohol use Yes Comment: Rarely- wine with dinner BP 124/84 Pulse 120 Temp 37.7 ?C (99.8 ?F) Resp 16 Wt 87.1 kg (192 lb) BMI 35.69 kg/m? HR recheck 95 bpm Objective Physical Exam Constitutional: She is oriented to person, place, and time and well-developed, well-nourished, and in no distress. HENT: Head: Normocephalic and atraumatic. Cardiovascular: Normal rate, regular rhythm and normal heart sounds. Pulmonary/Chest: Effort normal and breath sounds normal. Musculoskeletal: No CVA tenderness Neurological: She is alert and oriented to person, place, and time. Skin: Skin is warm and dry. Psychiatric: Affect and judgment normal. Nursing note and vitals reviewed. ASSESSMENT/PLAN: 1. Burning with urination - ICD9: 788.1, ICD10: R30.0 (primary diagnosis) acute - UA positive for stephanie esterase, hematuria, proteinuria and nitrates - Send urine for culture - Begin treatment with Macrobid 100 mg BID for 7 days - Discussed warning signs to go to the ED. Her last culture was pansensitive and she tolerates Macrobid well. Normal kidney function on last labs. - UA DIP, URINE (POC) - URINE CULTURE 2. Frequent urination - ICD9: 788.41, ICD10: R35.0 - UA DIP, URINE (POC) - URINE CULTURE 3. Urinary dribbling - ICD9: 788.35, ICD10: N39.43 - UA DIP, URINE (POC) - URINE CULTURE Khushboo Lala PA-C Observed: 04/10/2018 Status: F Source: [place] URINE CULTURE 10:46 AM [facility] REPOSITORY Sp. Request/Comment: - Specimen received in preservative Culture Result - >=100,000 CFU/ml Escherichia coli --> ABNORMAL ALERT ORGANISM: Escherichia coli METHOD: Minimum inhibitory concentration(Vitek) Antibiotic Interp BILL Status Ampicillin RESISTANT >=32 F Gentamicin SUSCEPTIBLE <=1 F Trimeth sulfameth SUSCEPTIBLE <=20 F Cefazolin SUSCEPTIBLE <=4 F CLSI breakpoints for therapy of uncomplicated UTI's due to E.coli, K.pneumoniae, and P.mirabilis were applied and may be used to predict the activity of oral agents(cefaclor, cefdinir, cefpodoxime, cefp rozil, cefuroxime, cephalexin, loracarbef). Ciprofloxacin RESISTANT >=4 F Nitrofurantoin SUSCEPTIBLE <=16 F Cefepime SUSCEPTIBLE <=1 F Piperacillin/Tazobac SUSCEPTIBLE <=4 F Ampicillin Sulbact INTERMEDIATE 16 F Ceftriaxone SUSCEPTIBLE <=1 F Meropenem SUSCEPTIBLE <=0.25 F Ertapenem SUSCEPTIBLE <=0.5 F Performed By: #### URCUL #### [facility] [address] [place], [place] [address] CNOV Observed: 04/10/2018 Status: COMPLETED Source: [place] 10:00 AM [facility] REPOSITORY Office Visit (WSTR) GRACIELA ORONA ([id number]) 1940 F [facility] Date Time Provider Department 04/10/18 10:00 AM KHUSHBOO LALA) [facility] During your visit today, we recorded the following information about you: Temperature Pulse Respiration Blood pressure 99.8 degrees 120/minute 16/minute 124/84 Weight 87.1 kg Khushboo Lala PA-C 04/10/2018 12:22 PM Signed Subjective HPI Pt presents with dysuria, frequency and urgency for 1 day. She denies fevers or chills. No back pain. No abdominal pain. She has had UTIs in the past, the last in November this year. . No nausea or vomiting. No hematuria. Review of Systems Constitutional: Negative. Negative for chills and fever. Gastrointestinal: Negative. Negative for abdominal pain and vomiting. Genitourinary: Positive for dysuria, frequency and urgency. Negative for flank pain and hematuria. Musculoskeletal: Negative. All other systems reviewed and are negative. PAST MEDICAL HISTORY Diagnosis Date - Chronic rhinitis 02/05/2006 - Clostridium difficile diarrhea 12/09/2015 - Debility 02/08/2017 - Dislocation closed, shoulder 05/28/2010 Left shoulder, accidental fall - Diverticulosis of colon (without mention of hemorrhage) - Essential hypertension, benign 02/05/2006 - OA (osteoarthritis) of knee 06/04/2014 - Other and unspecified hyperlipidemia 02/05/2006 - Parkinsonism (HCC) 07/17/2014 Dr. Sue Rubalcava. Neurology. - Rheumatoid arthritis(714.0) 2009 - Unspecified hypothyroidism 02/05/2006 Current Outpatient Prescriptions: SYNTHROID 88 mcg tablet Take 1 tablet by mouth once daily. Disp: 90 tablet Rfl: 1 diltiazem CD (CARDIZEM CD) 180 mg 24 hr capsule Take 1 capsule by mouth once daily. Disp: 90 capsule Rfl: 3 triamcinolone acetonide (KENALOG) 0.1 % cream Apply 1 application to affected area three times daily. Apply sparingly to area for rash/itching. Disp: 80 g Rfl: 0 carbidopa-levodopa (SINEMET 25-100) 25-100 mg per tablet Take 1 tablet by mouth four times daily. Disp: Rfl: traMADol (ULTRAM) 50 mg tablet Take 1 tablet by mouth every 8 hours as needed for Pain. Disp: Rfl: nystatin (MYCOSTATIN) powder Apply 1 application to affected area four times daily. Disp: 1 Bottle Rfl: 0 meloxicam (MOBIC) 7.5 mg tablet Take 1 tablet by mouth once daily. Disp: Rfl: 0 biotin 5 mg caspule Take 1 capsule by mouth once daily. Disp: Rfl: 0 omega-3 fatty acids 1,000 mg cap Take 1 capsule by mouth once daily. Disp: Rfl: 0 leucovorin (LEUCOVORIN) 15 mg tablet Take 1 tablet by mouth once each week. Dr. Rajput Disp: Rfl: Methotrexate Sodium (RHEUMATREX) 2.5 mg tablet Take 6 tablets by mouth once each week. Disp: Rfl: 0 ascorbic acid (VITAMIN C) 500 mg ORAL tablet Take 1 tablet by mouth once daily. Disp: Rfl: 0 folic acid 1 mg ORAL tablet Take two (2) tablets daily. Disp: Rfl: aspirin(ECOTRIN LOW STRENGTH 81 MG TAB) Take one(1) tablet daily. Disp: Rfl: 0 CENTRUM SILVER TAB Take one(1) tablet daily. Disp: Rfl: 0 nitrofurantoin monohydrate and macrocrystal (MACROBID) 100 mg capsule Take 1 capsule by mouth twice daily with meals for 7 days. Disp: 14 capsule Rfl: 0 No current facility-administered medications for this visit. PAST SURGICAL HISTORY Procedure Laterality Date - COLONOSCOP W/ OR W/O [facility] SPEC 07/26/2006 Colonoscopy - REMOVAL OF TONSILS,<10 Y/O 1954 Tonsillectomy - TOTAL HIP JOINT REPLACEMENT Right - TOTAL HIP REPLACEMENT Left January Hip replacement, total, LEFT FAMILY HISTORY Problem Relation Age of Onset - Cancer Mother Pancreatic cancer - GI Father of transfusion related Hep. C - Arthritis Father Hip replacements, multiple - Cancer Paternal Grandmother Social History Substance Use Topics - Smoking status: Never Smoker - Smokeless tobacco: Never Used - Alcohol use Yes Comment: Rarely- wine with dinner BP 124/84 Pulse 120 Temp 37.7 ?C (99.8 ?F) Resp 16 Wt 87.1 kg (192 lb) BMI 35.69 kg/m? HR recheck 95 bpm Objective Physical Exam Constitutional: She is oriented to person, place, and time and well-developed, well-nourished, and in no distress. HENT: Head: Normocephalic and atraumatic. Cardiovascular: Normal rate, regular rhythm and normal heart sounds. Pulmonary/Chest: Effort normal and breath sounds normal. Musculoskeletal: No CVA tenderness Neurological: She is alert and oriented to person, place, and time. Skin: Skin is warm and dry. Psychiatric: Affect and judgment normal. Nursing note and vitals reviewed. ASSESSMENT/PLAN: 1. Burning with urination - ICD9: 788.1, ICD10: R30.0 (primary diagnosis) acute - UA positive for stephanie esterase, hematuria, proteinuria and nitrates - Send urine for culture - Begin treatment with Macrobid 100 mg BID for 7 days - Discussed warning signs to go to the ED. Her last culture was pansensitive and she tolerates Macrobid well. Normal kidney function on last labs. - UA DIP, URINE (POC) - URINE CULTURE 2. Frequent urination - ICD9: 788.41, ICD10: R35.0 - UA DIP, URINE (POC) - URINE CULTURE 3. Urinary dribbling - ICD9: 788.35, ICD10: N39.43 - UA DIP, URINE (POC) - URINE CULTURE Khushboo Lala PA-C Referring Provider: SELF [200] Allergies As of Date: 04/10/2018 Noted Allergy Reaction BACTRIM (SULFAMETHOXAZOLE) 12/15/2009 7 - Swelling ESTROGENS 02/05/2006 14 - Other: See Comments Comments: Visual spots. STATINS ([id number] REDUCTAS*11/06/2008 Comments: Muscle pain Date Reviewed: 04/10/2018 Reviewed by: Vinita Medrano LPN - Fully Assessed Reason for Visit: Urinary Problem [252] Cmt: Started last night with burning with urination, frequency and urine dribbling/not emptying Primary Visit Diagnosis:Burning with urination [R30.0] Other Visit Diagnoses:Frequent urination [R35.0] Urinary dribbling [N39.43] Order(s):UA DIP, URINE (POC) [1974883] Order #: [id number]. #:[id number] URINE CULTURE [SQURCUL] Order #: [id number] nitrofurantoin monohydrate and macrocrystal (MACROBID) 100 mg capsuleTake 1 capsule by mouth twice daily with meals for 7 days.Disp: 14 capsuleRfl: 0 Prescriptions as of 04/10/2018 Sig: SYNTHROID 88 MCG TABLET Take 1 tablet by mouth once d* DILTIAZEM SR 180 MG 24 HR CAP Take 1 capsule by mouth once * TRIAMCINOLONE ACETONIDE 0.1 %* Apply 1 application to affect* CARBIDOPA 25 MG-LEVODOPA 100 * Take 1 tablet by mouth four t* TRAMADOL 50 MG TABLET Take 1 tablet by mouth every * NYSTATIN 100,000 UNIT/GRAM TO* Apply 1 application to affect* MELOXICAM 7.5 MG TABLET Take 1 tablet by mouth once d* BIOTIN 5 MG CAPSULE Take 1 capsule by mouth once * OMEGA-3 FATTY ACIDS 1,000 MG * Take 1 capsule by mouth once * LEUCOVORIN CALCIUM 15 MG TABL* Take 1 tablet by mouth once e* METHOTREXATE SODIUM 2.5 MG TA* Take 6 tablets by mouth once * * ASCORBIC ACID (VITAMIN C) 500* Take 1 tablet by mouth once d* * FOLIC ACID 1 MG TABLET Take two (2) tablets daily. * ECOTRIN LOW STRENGTH 81 MG TA* Take one(1) tablet daily. * CENTRUM SILVER TABLET Take one(1) tablet daily. NITROFURANTOIN MONOHYDRATE AND * Take 1 capsule by mouth twice* Problem List As Of Date 04/10/2018 Noted Resolved BENIGN HYPERTENSION [I10] INVALID FOR* Other hyperlipidemia [E78.4] INVALID FOR* Hypothyroidism [E03.9] INVALID FOR* Chronic rhinitis [J31.0] INVALID FOR*06/04/2014 Personal history of other malignant neoplasm of*INVALID FOR* More... Rheumatoid arthritis (HCC) [M06.9] INVALID FOR* Osteoarthritis [M19.90] INVALID FOR*11/01/2017 OA (osteoarthritis) of knee [M17.10] INVALID FOR* More... Parkinsonism (HCC) [G20] INVALID FOR* More... Abnormal mammogram, unspecified [R92.8] INVALID FOR*02/01/2017 Clostridium difficile diarrhea [A04.72] INVALID FOR*03/16/2016 Debility [R53.81] INVALID FOR* Sinus tachycardia [R00.0] INVALID FOR* Prescriptions ordered this encounter Disp Refills Start End NITROFURANTOIN MONOHYDRATE AND MACROCR* 14 c* 0 04/10/2018 04/17/2018 Route: ORAL Sig: Take 1 capsule by mouth twice daily with meals for 7 days. Encounter Status:Closed by KHUSHBOO LALA PA-C on 04/10/18 COMPREHENSIVE METABOLIC Collected: 01/30/2018 Status: F Source: [place] 9:40 AM [facility] REPOSITORY TYPE CODE TESTS RESULT OUT OF RANGE REFERENCE UNITS LAB L501.0100 74-106 mg/dL Normal GLU 86 Result Comment: Please note revised GLUCOSE reference range effective 2017. LAB L501.1000 7-18 mg/dL Normal BUN 10 LAB L501.1100 0.55-1.02 mg/dL Normal CREAT,SERUM 0.84 Result Comment: The validity of the calculated GFR AND GFRAA in patients over 70 years has not been determined. Clinical correlation is essential. LAB L501.1110 >60 mL/min Normal EST GFR 69 Result Comment: Non- GFR Calc LAB L501.1115 >60 mL/min Normal EST GFR - AA 84 Result Comment: GFR Calc LAB L501.1300 10-20 RATIO Normal BUN/CRE 11.8 LAB L501.1500 6.4-8.2 g/dL High T PROT 8.3 LAB L501.1800 3.2-5.0 g/dL Normal ALB 4.2 LAB L501.1950 2.2-4.2 g/dL Normal GLOB 4.1 LAB L501.2000 0.9-2.4 RATIO Normal A/G 1.0 LAB L501.2200 8.5-10.1 mg/dL CA Normal 9.0 LAB L501.4100 15-37 U/L Low AST 13 LAB L501.4305 45-117 U/L Normal ALK P 68 LAB L501.4405 13-56 U/L Normal ALT 13 LAB L501.4600 0.20-1.00 mg/dL High T BILI 1.10 LAB L501.5300 136-145 mmol/L NA Normal 136 LAB L501.5600 3.5-5.1 mmol/L K Normal 3.8 LAB L501.5900 98-107 mmol/L CL Normal 100 LAB L501.6100 21.0-32.0 mmol/L Normal CO2 27.0 LAB L501.6200 5-15 Normal GAP 9 Performed By: #### L500.4050 #### [facility] [address] [facility] [place], [address] CBC W/DIFF, AUTOMATED Collected: 01/30/2018 Status: F Source: [place] 9:40 AM [facility] REPOSITORY TYPE CODE TESTS RESULT OUT OF RANGE REFERENCE UNITS LAB L100.1000 4.4-11.0 K/mm3 Normal WBC 4.7 LAB L100.1200 4.2-5.4 M/mm3 Normal RBC 4.29 LAB L100.1300 12.0-15.0 g/dl Normal HGB 13.5 LAB L100.1400 37-47 % Normal HCT 41.7 LAB L100.1500 81-99 fL Normal MCV 97.2 LAB L100.1600 27.0-32.0 pg Normal MCH 31.5 LAB L100.1700 32-36 g/gl Normal MCHC 32.4 LAB L100.1810 11.6-14.6 % Normal RDW CV 13.5 LAB L100.1820 35.1-43.9 fl High RDW SD 46.6 LAB L100.1900 150-450 K/mm3 Normal PLT 314 LAB L100.2000 6.2-12.0 fl Normal MPV 9.2 LAB L100.2100 47-70 % Low NEUT% 42.8 LAB L100.2200 19-41 % Normal LY% 36.2 LAB L100.2300 0-10 % High MONO% 16.3 LAB L100.2400 0-5 % Normal EO% 4.1 LAB L100.2500 0-1 % Normal BASO% 0.6 LAB L100.2550 0.0-0.9 % Normal IM GRAN % 0.000 Result Comment: IG% - Immature Granulocytes (promyelocytes, myelocytes and metamyelocytes) > 1% indicates that a LEFT SHIFT is Present. LAB L100.2620 2.0-7.7 X10 3/uL Normal Absolute Neut 2.0 LAB L100.2720 0.83-4.51 X10 3/ul Normal Absolute Lymph 1.69 Performed By: #### L100.0100 #### [facility] [place], [address] Observed: 12/01/2017 Status: F Source: [place] URINE CULTURE 11:29 AM [facility] REPOSITORY Sp. Request/Comment: - Specimen received in preservative Culture Result - 50,000 - <100,000 CFU/ml Escherichia coli --> ABNORMAL ALERT ORGANISM: Escherichia coli METHOD: Minimum inhibitory concentration(Vitek) Antibiotic Interp BILL Status Ampicillin SUSCEPTIBLE <=2 F Gentamicin SUSCEPTIBLE <=1 F Trimeth sulfameth SUSCEPTIBLE <=20 F Cefazolin SUSCEPTIBLE <=4 F CLSI breakpoints for therapy of uncomplicated UTI's due to E.coli, K.pneumoniae, and P.mirabilis were applied and may be used to predict the activity of oral agents(cefaclor, cefdinir, cefpodoxime, cefp rozil, cefuroxime, cephalexin, loracarbef). Ciprofloxacin SUSCEPTIBLE <=0.25 F Nitrofurantoin SUSCEPTIBLE <=16 F Cefepime SUSCEPTIBLE <=1 F Piperacillin/Tazobac SUSCEPTIBLE <=4 F Ampicillin Sulbact SUSCEPTIBLE <=2 F Ceftriaxone SUSCEPTIBLE <=1 F Meropenem SUSCEPTIBLE <=0.25 F Ertapenem SUSCEPTIBLE <=0.5 F Performed By: #### URCUL #### [facility] [address] [place], [place] [address] PROGRESS Observed: 12/01/2017 Status: COMPLETED Source: [place] 11:14 AM [facility] REPOSITORY HNO ID: [id number] Author: Tiana Glez Service: (none) Author Type: Nurse Practitioner Type: Progress Notes Filed: 12/01/2017 11:33 AM Note Text: Subjective HPI HPI Graciela Orona is a 77 year old female who presents today for CC of urinary frequency/burning. This started 3 days. Has tried nothing. Symptoms are worsened by nothing. Risk factors hx of uti. .Patient presents with: Urinary Frequency: with burning and discomfort feeling PAST MEDICAL HISTORY Diagnosis Date - Chronic rhinitis 02/05/2006 - Clostridium difficile diarrhea 12/09/2015 - Debility 02/08/2017 - Dislocation closed, shoulder 05/28/2010 Left shoulder, accidental fall - Diverticulosis of colon (without mention of hemorrhage) - Essential hypertension, benign 02/05/2006 - OA (osteoarthritis) of knee 06/04/2014 - Other and unspecified hyperlipidemia 02/05/2006 - Parkinsonism (HCC) 07/17/2014 Dr. Sue Rubalcava. Neurology. - Rheumatoid arthritis(714.0) 2009 - Unspecified hypothyroidism 02/05/2006 PAST SURGICAL HISTORY Procedure Laterality Date - COLONOSCOP W/ OR W/O [facility] SPEC 07/26/2006 Colonoscopy - REMOVAL OF TONSILS,<10 Y/O 1954 Tonsillectomy - TOTAL HIP JOINT REPLACEMENT Right - TOTAL HIP REPLACEMENT Left January Hip replacement, total, LEFT ALLERGIES Bactrim [Sulfamethoxazole]; Estrogens; Statins [Jtktosc-Apk-Lzk Reductase Inhibitors] MEDICATIONS SYNTHROID 88 mcg tablet Take 1 tablet by mouth once daily. diltiazem CD (CARDIZEM CD) 180 mg 24 hr capsule Take 1 capsule by mouth once daily. triamcinolone acetonide (KENALOG) 0.1 % cream Apply 1 application to affected area three times daily. Apply sparingly to area for rash/itching. carbidopa-levodopa (SINEMET 25-100) 25-100 mg per tablet Take 1 tablet by mouth four times daily. traMADol (ULTRAM) 50 mg tablet Take 1 tablet by mouth every 8 hours as needed for Pain. nystatin (MYCOSTATIN) powder Apply 1 application to affected area four times daily. meloxicam (MOBIC) 7.5 mg tablet Take 1 tablet by mouth once daily. biotin 5 mg caspule Take 1 capsule by mouth once daily. omega-3 fatty acids 1,000 mg cap Take 1 capsule by mouth once daily. leucovorin (LEUCOVORIN) 15 mg tablet Take 1 tablet by mouth once each week. Dr. Rajput Methotrexate Sodium (RHEUMATREX) 2.5 mg tablet Take 6 tablets by mouth once each week. ascorbic acid (VITAMIN C) 500 mg ORAL tablet Take 1 tablet by mouth once daily. folic acid 1 mg ORAL tablet Take two (2) tablets daily. aspirin(ECOTRIN LOW STRENGTH 81 MG TAB) Take one(1) tablet daily. CENTRUM SILVER TAB Take one(1) tablet daily. FAMILY HISTORY Problem Relation Age of Onset - Cancer Mother Pancreatic cancer - GI Father of transfusion related Hep. C - Arthritis Father Hip replacements, multiple - Cancer Paternal Grandmother Social History Substance Use Topics - Smoking status: Never Smoker - Smokeless tobacco: Never Used - Alcohol use Yes Comment: Rarely- wine with dinner Review of Systems Constitutional: Negative for chills, fever and weight loss. Respiratory: Negative for cough, shortness of breath and wheezing. Cardiovascular: Negative for chest pain and palpitations. Gastrointestinal: Negative for abdominal pain, blood in stool, constipation, diarrhea, heartburn, melena, nausea and vomiting. Genitourinary: Positive for dysuria, frequency and urgency. Negative for flank pain and hematuria. Objective Blood pressure 132/82, pulse 116, temperature 37.7 ?C (99.8 ?F), temperature source Tympanic, resp. rate 24. Component Latest Ref Rng AND Units 10/26/2017 Glucose 74 - 99 mg/dL 97 BUN 7 - 21 mg/dL 11 Creatinine 0.58 - 0.96 mg/dL 0.69 Sodium 136 - 144 mmol/L 139 Potassium 3.7 - 5.1 mmol/L 4.4 Chloride 97 - 105 mmol/L 99 CO2 22 - 30 mmol/L 26 Anion Gap 9 - 18 mmol/L 14 Calcium 8.5 - 10.2 mg/dL 9.6 eGFR- >60 eGFR-All Other Races . >60 Physical Exam Constitutional: She is well-developed, well-nourished, and in no distress. Non-toxic appearance. She does not have a sickly appearance. No distress. Cardiovascular: Normal rate, regular rhythm and normal heart sounds. Pulmonary/Chest: Effort normal and breath sounds normal. Abdominal: Soft. Normal appearance and bowel sounds are normal. There is no hepatosplenomegaly. There is no tenderness. There is no CVA tenderness. Skin: Skin is warm and dry. ASSESSMENT/PLAN: 1. Dysuria - ICD9: 788.1, ICD10: R30.0 acute - UA positive for stephanie esterase, hematuria and proteinuria - Send urine for culture - Begin treatment with Macrobid 100 mg BID for 7 days - Patient education for prevention given - URINE CULTURE - UA DIP B/O - NITROFURANTOIN MONOHYDRATE AND MACROCRYSTAL 100 MG ORAL CAP Prescription instructions reviewed with patient as applicable. Patient advised if symptoms do not improve or if symptoms worsen sooner, to contact the office for further evaluation by their primary care physician. Potential red flag symptoms discussed with the patient. Reviewed appropriate action plan to take if red flag symptoms occur. Patient agreeable to treatment plan. Tiana Glez APRN.CNP CNOV Observed: 12/01/2017 Status: COMPLETED Source: [place] 11:00 AM [facility] REPOSITORY Office Visit (WSTR) GRACIELA ORONA ([id number]) 1940 [address] [facility] Date Time Provider Department 12/01/17 11:00 AM TIANA GLEZ (ANSELMO) WSTR During your visit today, we recorded the following information about you: Temperature Pulse Respiration Blood pressure 99.8 degrees 116/minute 24/minute 132/82 Tiana Glez APRN.CNP 12/01/2017 11:33 AM Signed Subjective HPI HPI Graciela Clarke Yeyo is a 77 year old female who presents today for CC of urinary frequency/burning. This started 3 days. Has tried nothing. Symptoms are worsened by nothing. Risk factors hx of uti. .Patient presents with: Urinary Frequency: with burning and discomfort feeling PAST MEDICAL HISTORY Diagnosis Date - Chronic rhinitis 02/05/2006 - Clostridium difficile diarrhea 12/09/2015 - Debility 02/08/2017 - Dislocation closed, shoulder 05/28/2010 Left shoulder, accidental fall - Diverticulosis of colon (without mention of hemorrhage) - Essential hypertension, benign 02/05/2006 - OA (osteoarthritis) of knee 06/04/2014 - Other and unspecified hyperlipidemia 02/05/2006 - Parkinsonism (HCC) 07/17/2014 Dr. Sue Rubalcava. Neurology. - Rheumatoid arthritis(714.0) 2009 - Unspecified hypothyroidism 02/05/2006 PAST SURGICAL HISTORY Procedure Laterality Date - COLONOSCOP W/ OR W/O BRSH SPEC 07/26/2006 Colonoscopy - REMOVAL OF TONSILS,ANDlt;10 Y/O 1954 Tonsillectomy - TOTAL HIP JOINT REPLACEMENT Right - TOTAL HIP REPLACEMENT Left January Hip replacement, total, LEFT ALLERGIES Bactrim [Sulfamethoxazole]; Estrogens; Statins [Mvhtrdi-Jit-Pmn Reductase Inhibitors] MEDICATIONS SYNTHROID 88 mcg tablet Take 1 tablet by mouth once daily. diltiazem CD (CARDIZEM CD) 180 mg 24 hr capsule Take 1 capsule by mouth once daily. triamcinolone acetonide (KENALOG) 0.1 % cream Apply 1 application to affected area three times daily. Apply sparingly to area for rash/itching. carbidopa-levodopa (SINEMET 25-100) 25-100 mg per tablet Take 1 tablet by mouth four times daily. traMADol (ULTRAM) 50 mg tablet Take 1 tablet by mouth every 8 hours as needed for Pain. nystatin (MYCOSTATIN) powder Apply 1 application to affected area four times daily. meloxicam (MOBIC) 7.5 mg tablet Take 1 tablet by mouth once daily. biotin 5 mg caspule Take 1 capsule by mouth once daily. omega-3 fatty acids 1,000 mg cap Take 1 capsule by mouth once daily. leucovorin (LEUCOVORIN) 15 mg tablet Take 1 tablet by mouth once each week. Dr. Rajput Methotrexate Sodium (RHEUMATREX) 2.5 mg tablet Take 6 tablets by mouth once each week. ascorbic acid (VITAMIN C) 500 mg ORAL tablet Take 1 tablet by mouth once daily. folic acid 1 mg ORAL tablet Take two (2) tablets daily. aspirin(ECOTRIN LOW STRENGTH 81 MG TAB) Take one(1) tablet daily. CENTRUM SILVER TAB Take one(1) tablet daily. FAMILY HISTORY Problem Relation Age of Onset - Cancer Mother Pancreatic cancer - GI Father of transfusion related Hep. C - Arthritis Father Hip replacements, multiple - Cancer Paternal Grandmother Social History Substance Use Topics - Smoking status: Never Smoker - Smokeless tobacco: Never Used - Alcohol use Yes Comment: Rarely- wine with dinner Review of Systems Constitutional: Negative for chills, fever and weight loss. Respiratory: Negative for cough, shortness of breath and wheezing. Cardiovascular: Negative for chest pain and palpitations. Gastrointestinal: Negative for abdominal pain, blood in stool, constipation, diarrhea, heartburn, melena, nausea and vomiting. Genitourinary: Positive for dysuria, frequency and urgency. Negative for flank pain and hematuria. Objective Blood pressure 132/82, pulse 116, temperature 37.7 ?C (99.8 ?F), temperature source Tympanic, resp. rate 24. Component Latest Ref Rng ANDamp; Units 10/26/2017 Glucose 74 - 99 mg/dL 97 BUN 7 - 21 mg/dL 11 Creatinine 0.58 - 0.96 mg/dL 0.69 Sodium 136 - 144 mmol/L 139 Potassium 3.7 - 5.1 mmol/L 4.4 Chloride 97 - 105 mmol/L 99 CO2 22 - 30 mmol/L 26 Anion Gap 9 - 18 mmol/L 14 Calcium 8.5 - 10.2 mg/dL 9.6 eGFR- ANDgt;60 eGFR-All Other Races . ANDgt;60 Physical Exam Constitutional: She is well-developed, well-nourished, and in no distress. Non-toxic appearance. She does not have a sickly appearance. No distress. Cardiovascular: Normal rate, regular rhythm and normal heart sounds. Pulmonary/Chest: Effort normal and breath sounds normal. Abdominal: Soft. Normal appearance and bowel sounds are normal. There is no hepatosplenomegaly. There is no tenderness. There is no CVA tenderness. Skin: Skin is warm and dry. ASSESSMENT/PLAN: 1. Dysuria - ICD9: 788.1, ICD10: R30.0 acute - UA positive for stephanie esterase, hematuria and proteinuria - Send urine for culture - Begin treatment with Macrobid 100 mg BID for 7 days - Patient education for prevention given - URINE CULTURE - UA DIP B/O - NITROFURANTOIN MONOHYDRATE ANDamp; MACROCRYSTAL 100 MG ORAL CAP Prescription instructions reviewed with patient as applicable. Patient advised if symptoms do not improve or if symptoms worsen sooner, to contact the office for further evaluation by their primary care physician. Potential red flag symptoms discussed with the patient. Reviewed appropriate action plan to take if red flag symptoms occur. Patient agreeable to treatment plan. ANN Doan APRN.CNP 12/01/2017 11:30 AM Signed URINARY TRACT INFECTION GENERAL INFORMATION: A urinary tract infection (UTI) is an infection of the bladder or kidneys. A bladder infection, called cystitis, is the more common type. If the infection travels up to the kidneys, it is called pyelonephritis. This can be more serious. UTIs are a common problem in women. Having sexual relations can leave a woman more susceptible to developing a UTI, but it is not sexually transmitted like gonorrhea. Some women have a problem with recurrent UTIs. INSTRUCTIONS: 1. Your doctor prescribed an antibiotic to treat the UTI. Take exactly as directed. Be sure to take all the medication prescribed, even if your symptoms disappear. If you stop treatment early, the infection may not be fully treated and the symptoms could come back again. 2. Get plenty of rest. You may take acetaminophen for fever and aches. 3. Drink 6 to 8 glasses of fluids, especially water, every day. This helps wash out germs from your urinary tract. Cranberry juice or other sources of vitamin C are also good for you. 4. Urinate often, as soon as you feel the urge. Empty your bladder completely. Urinate before and after you have sex. 5. Always wipe from front to back after going to the bathroom. This pushes germs away from your bladder, rather than towards it. 6. Showers are better than baths, and you should wash the genital area daily. Avoid bubble bath or bath oils if you do take a bath. 7. Wear underwear and pantyhose with a cotton crotch. CONTACT YOUR DOCTOR: 1. You have a temperature over 102F (38.8C) after 48 hours on medication. 2. You notice blood in your urine. 3. Your symptoms don't improve in 2 days. 4. You develop nausea, vomiting, diarrhea, or a rash. 5. You develop new or unexplained symptoms. These may be related to the medication you are taking. 6. Your symptoms return after you finish treatment. RETURN TO THE EMERGENCY DEPARTMENT IF: You develop vomiting and can't keep your medication or fluids down. Referring Provider: SELF [[id number]] Allergies As of Date: 12/01/2017 Noted Allergy Reaction BACTRIM (SULFAMETHOXAZOLE) 12/15/2009 7 - Swelling ESTROGENS 02/05/2006 14 - Other: See Comments Comments: Visual spots. STATINS (LAEHJZA-ZLN-[id number] REDUCTAS*11/06/2008 Comments: Muscle pain Date Reviewed: 12/01/2017 Reviewed by: [facility]) - Fully Assessed Reason for Visit: Urinary Frequency [1086] Cmt: with burning and discomfort feeling Primary Visit Diagnosis:Dysuria [R30.0] Order(s):URINE CULTURE [SQURCUL] Order #: [id number] UA DIP B/O [[id number]] Order #: [id number] nitrofurantoin monohydrate and macrocrystal (MACROBID) 100 mg capsuleTake 1 capsule by mouth twice daily with meals for 7 days.Disp: 14 capsuleRfl: 0 Prescriptions as of 12/01/2017 Sig: NITROFURANTOIN MONOHYDRATE AND * Take 1 capsule by mouth twice* SYNTHROID 88 MCG TABLET Take 1 tablet by mouth once d* DILTIAZEM SR 180 MG 24 HR CAP Take 1 capsule by mouth once * TRIAMCINOLONE ACETONIDE 0.1 %* Apply 1 application to affect* CARBIDOPA 25 MG-LEVODOPA 100 * Take 1 tablet by mouth four t* TRAMADOL 50 MG TABLET Take 1 tablet by mouth every * NYSTATIN 100,000 UNIT/GRAM TO* Apply 1 application to affect* MELOXICAM 7.5 MG TABLET Take 1 tablet by mouth once d* BIOTIN 5 MG CAPSULE Take 1 capsule by mouth once * OMEGA-3 FATTY ACIDS 1,000 MG * Take 1 capsule by mouth once * LEUCOVORIN CALCIUM 15 MG TABL* Take 1 tablet by mouth once e* METHOTREXATE SODIUM 2.5 MG TA* Take 6 tablets by mouth once * * ASCORBIC ACID (VITAMIN C) 500* Take 1 tablet by mouth once d* * FOLIC ACID 1 MG TABLET Take two (2) tablets daily. * ECOTRIN LOW STRENGTH 81 MG TA* Take one(1) tablet daily. * CENTRUM SILVER TABLET Take one(1) tablet daily. Problem List As Of Date 12/01/2017 Noted Resolved BENIGN HYPERTENSION [I10] INVALID FOR* Other hyperlipidemia [E78.4] INVALID FOR* Hypothyroidism [E03.9] INVALID FOR* Chronic rhinitis [J31.0] INVALID FOR*06/04/2014 Personal history of other malignant neoplasm of*INVALID FOR* More... Rheumatoid arthritis (HCC) [M06.9] INVALID FOR* Osteoarthritis [M19.90] INVALID FOR*11/01/2017 OA (osteoarthritis) of knee [M17.10] INVALID FOR* More... Parkinsonism (HCC) [G20] INVALID FOR* More... Abnormal mammogram, unspecified [R92.8] INVALID FOR*02/01/2017 Clostridium difficile diarrhea [A04.72] INVALID FOR*03/16/2016 Debility [R53.81] INVALID FOR* Sinus tachycardia [R00.0] INVALID FOR* Other instructions from your clinician: URINARY TRACT INFECTION GENERAL INFORMATION: A urinary tract infection (UTI) is an infection of the bladder or kidneys. A bladder infection, called cystitis, is the more common type. If the infection travels up to the kidneys, it is called pyelonephritis. This can be more serious. UTIs are a common problem in women. Having sexual relations can leave a woman more susceptible to developing a UTI, but it is not sexually transmitted like gonorrhea. Some women have a problem with recurrent UTIs. INSTRUCTIONS: 1. Your doctor prescribed an antibiotic to treat the UTI. Take exactly as directed. Be sure to take all the medication prescribed, even if your symptoms disappear. If you stop treatment early, the infection may not be fully treated and the symptoms could come back again. 2. Get plenty of rest. You may take acetaminophen for fever and aches. 3. Drink 6 to 8 glasses of fluids, especially water, every day. This helps wash out germs from your urinary tract. Cranberry juice or other sources of vitamin C are also good for you. 4. Urinate often, as soon as you feel the urge. Empty your bladder completely. Urinate before and after you have sex. 5. Always wipe from front to back after going to the bathroom. This pushes germs away from your bladder, rather than towards it. 6. Showers are better than baths, and you should wash the genital area daily. Avoid bubble bath or bath oils if you do take a bath. 7. Wear underwear and pantyhose with a cotton crotch. CONTACT YOUR DOCTOR: 1. You have a temperature over 102F (38.8C) after 48 hours on medication. 2. You notice blood in your urine. 3. Your symptoms don't improve in 2 days. 4. You develop nausea, vomiting, diarrhea, or a rash. 5. You develop new or unexplained symptoms. These may be related to the medication you are taking. 6. Your symptoms return after you finish treatment. RETURN TO THE EMERGENCY DEPARTMENT IF: You develop vomiting and can't keep your medication or fluids down. Prescriptions ordered this encounter Disp Refills Start End NITROFURANTOIN MONOHYDRATE AND MACROCR* 14 c* 0 12/01/2017 12/08/2017 Route: ORAL Sig: Take 1 capsule by mouth twice daily with meals for 7 days. Encounter Status:Closed by TIANA GLEZ CNP on 12/01/17 FECAL OCCULT BLD Collected: 11/11/2017 Status: F Source: [facility] 12:00 PM [facility] REPOSITORY TYPE CODE TESTS RESULT OUT OF REFERENCE UNITS RANGE LAB IFO Negative Immuno Negative FOB Result Comment: This test was developed and its performance characteristics determined by 's Baldo Mag[facility] [place] ([facility]). It has not been cleared or approved by the FDA. -[facility] is regulated under CLIA as qualified to perform high-complexity testing. This test is used for clinical purposes. It should not be regarded as investigational or for research. Performed By: #### IFOBT #### Laboratories [address] [place], [place] [address] COMPREHENSIVE METABOLIC Collected: 11/07/2017 Status: F Source: [facility] 12:51 PM [facility] REPOSITORY TYPE CODE TESTS RESULT OUT OF RANGE REFERENCE UNITS LAB L501.0100 74-106 mg/dL Normal GLU 82 Result Comment: Please note revised GLUCOSE reference range effective 2017. LAB L501.1000 7-18 mg/dL Normal BUN 11 LAB L501.1100 0.55-1.02 mg/dL Normal CREAT,SERUM 0.81 Result Comment: The validity of the calculated GFR AND GFRAA in patients over 70 years has not been determined. Clinical correlation is essential. LAB L501.1110 >60 mL/min Normal EST GFR 72 Result Comment: Non- GFR Calc LAB L501.1115 >60 mL/min Normal EST GFR - AA 87 Result Comment: GFR Calc LAB L501.1300 10-20 RATIO Normal BUN/CRE 13.5 LAB L501.1500 6.4-8.2 g/dL T Normal PROT 8.2 LAB L501.1800 3.2-5.0 g/dL Normal ALB 4.2 LAB L501.1950 2.2-4.2 g/dL Normal GLOB 4.0 LAB L501.2000 0.9-2.4 RATIO Normal A/G 1.0 LAB L501.2200 8.5-10.1 mg/dL CA Normal 9.1 LAB L501.4100 15-37 U/L Normal AST 19 LAB L501.4305 45-117 U/L Normal ALK P 69 LAB L501.4405 13-56 U/L Low ALT 11 Result Comment: Please note revised ALT reference range effective 2017. LAB L501.4600 0.20-1.00 mg/dL Normal T BILI 0.90 LAB L501.5300 136-145 mmol/L Normal NA 137 LAB L501.5600 3.5-5.1 mmol/L Normal K 4.1 LAB L501.5900 98-107 mmol/L Normal CL 102 LAB L501.6100 21.0-32.0 mmol/L Normal CO2 27.0 LAB L501.6200 5-15 Normal GAP 8 Performed By: #### L500.4050 #### [facility] [address] [place], [address] CBC W/DIFF, AUTOMATED Collected: 11/07/2017 Status: F Source: [place] 12:51 PM [facility] REPOSITORY TYPE CODE TESTS RESULT OUT OF RANGE REFERENCE UNITS LAB L100.1000 4.4-11.0 K/mm3 Normal WBC 5.2 LAB L100.1200 4.2-5.4 M/mm3 Normal RBC 4.25 LAB L100.1300 12.0-15.0 g/dl Normal HGB 13.5 LAB L100.1400 37-47 % Normal HCT 41.7 LAB L100.1500 81-99 fL Normal MCV 98.1 LAB L100.1600 27.0-32.0 pg Normal MCH 31.8 LAB L100.1700 32-36 g/gl Normal MCHC 32.4 LAB L100.1810 11.6-14.6 % Normal RDW CV 14.0 LAB L100.1820 35.1-43.9 fl High RDW SD 48.5 LAB L100.1900 150-450 K/mm3 Normal PLT 294 LAB L100.2000 6.2-12.0 fl Normal MPV 9.0 LAB L100.2100 47-70 % Normal NEUT% 49.6 LAB L100.2200 19-41 % Normal LY% 33.7 LAB L100.2300 0-10 % High MONO% 14.2 LAB L100.2400 0-5 % Normal EO% 1.9 LAB L100.2500 0-1 % Normal BASO% 0.6 LAB L100.2550 0.0-0.9 % Normal IM GRAN % 0.000 Result Comment: IG% - Immature Granulocytes (promyelocytes, myelocytes and metamyelocytes) > 1% indicates that a LEFT SHIFT is Present. LAB L100.2620 2.0-7.7 X10 3/uL Normal Absolute Neut 2.6 LAB L100.2720 0.83-4.51 X10 3/ul Normal Absolute Lymph 1.75 Performed By: #### L100.0100 #### [facility] [address] [place] [address]. [place], [address] PROGRESS Observed: 11/01/2017 Status: COMPLETED Source: [place] 12:39 PM [facility] REPOSITORY HNO ID: [id number] Author: Lucian Bahena Service: (none) Author Type: Physician Type: Progress Notes Filed: 11/01/2017 12:55 PM Note Text: This note was created using NoteWriter. Subjective Graciela Orona is a 77 year old female here with spouse for follow up. Hypertension was fair. Tachycardia was mainly noted during office visits. She monitored her BP at home and her heart rate was reportedly in the 80s at home. Her debility and parkinsonism was stable. Knee pains were noted with standing and prolonged leg lift exercises. She was not interested in orthopedic consultation at this time, as she had short lived effects from Euflexxa injection in the past. We reviewed her lipids. ACTIVE PROBLEM LIST Essential Hypertension, Benign Other Hyperlipidemia Hypothyroidism Personal history of other malignant neoplasm of skin Rheumatoid Arthritis (Hcc) Oa (Osteoarthritis) of Knee Parkinsonism (Hcc) Debility Sinus Tachycardia Current Outpatient Prescriptions: SYNTHROID 88 mcg tablet Take 1 tablet by mouth once daily. diltiazem CD (CARDIZEM CD) 180 mg 24 hr capsule Take 1 capsule by mouth once daily. triamcinolone acetonide (KENALOG) 0.1 % cream Apply 1 application to affected area three times daily. Apply sparingly to area for rash/itching. carbidopa-levodopa (SINEMET 25-100) 25-100 mg per tablet Take 1 tablet by mouth four times daily. traMADol (ULTRAM) 50 mg tablet Take 1 tablet by mouth every 8 hours as needed for Pain. nystatin (MYCOSTATIN) powder Apply 1 application to affected area four times daily. meloxicam (MOBIC) 7.5 mg tablet Take 1 tablet by mouth once daily. biotin 5 mg caspule Take 1 capsule by mouth once daily. omega-3 fatty acids 1,000 mg cap Take 1 capsule by mouth once daily. leucovorin (LEUCOVORIN) 15 mg tablet Take 1 tablet by mouth once each week. Dr. Rajput Methotrexate Sodium (RHEUMATREX) 2.5 mg tablet Take 6 tablets by mouth once each week. ascorbic acid (VITAMIN C) 500 mg ORAL tablet Take 1 tablet by mouth once daily. folic acid 1 mg ORAL tablet Take two (2) tablets daily. aspirin(ECOTRIN LOW STRENGTH 81 MG TAB) Take one(1) tablet daily. CENTRUM SILVER TAB Take one(1) tablet daily. No current facility-administered medications for this visit. Review of Systems Constitutional: Negative for chills and fever. HENT: Positive for hearing loss and tinnitus. Respiratory: Negative. Cardiovascular: Positive for leg swelling. Negative for chest pain and palpitations. Gastrointestinal: Negative. Musculoskeletal: Positive for arthralgias, gait problem and myalgias. Neurological: Positive for tremors and weakness. Negative for dizziness and headaches. Psychiatric/Behavioral: Negative. Objective BP 130/89 (BP Site: Left Arm, BP Position: Sitting, BP Cuff Size: Regular Adult) Pulse 113 Temp 36.7 ?C (98.1 ?F) (Right Tympanic) Resp 18 Ht 156.2 cm (5' 1.5) Wt 90.3 kg (199 lb) BMI 36.99 kg/m2 Physical Exam Constitutional: She is oriented to person, place, and time. No distress. HENT: Head: Atraumatic. Moderate cerumen, left > right. TM's not seen. Eyes: Conjunctivae are normal. Pupils are equal, round, and reactive to light. Neck: No JVD present. Cardiovascular: S1 normal and S2 normal. Tachycardia present. Exam reveals no gallop. No murmur heard. Pulmonary/Chest: Effort normal and breath sounds normal. Musculoskeletal: She exhibits edema. Trace edema. Neurological: She is alert and oriented to person, place, and time. She exhibits abnormal muscle tone. Coordination abnormal. Ambulatory with rollator walker. CMP: Glucose 97 10/26/2017 BUN 11 10/26/2017 Creatinine 0.69 10/26/2017 Sodium 139 10/26/2017 Potassium 4.4 10/26/2017 Chloride 99 10/26/2017 CO2 26 10/26/2017 Calcium 9.6 10/26/2017 Cholesterol, Total (mg/dL) Date Value 10/26/2017 217 03/10/2016 207 HDL Cholesterol (mg/dL) Date Value 10/26/2017 60 03/10/2016 62 LDL Cholesterol (mg/dL) Date Value 10/26/2017 123 03/10/2016 122 Triglyceride (mg/dL) Date Value 10/26/2017 172 03/10/2016 116 TSH (uU/mL) Date Value 10/26/2017 3.890 10/11/2015 3.990 ) Assessment and Plan ASSESSMENT/PLAN: 1. Medicare annual wellness visit, subsequent - ICD9: V70.0, ICD10: Z00.00 (primary diagnosis) See other note. 2. Secondary parkinsonism, unspecified secondary Parkinsonism type (HCC) - ICD9: 332.1, ICD10: G21.9 Per neurology. 3. Personal history of other malignant neoplasm of skin - ICD9: V10.83, ICD10: Z85.828 Per dermatology. 4. Osteoarthritis of knee, unspecified laterality, unspecified osteoarthritis type - ICD9: 715.36, ICD10: M17.10 Try knee supports. Continue therapeutic exercises. 5. Essential hypertension, benign - ICD9: 401.1, ICD10: I10 - fair control - Continue current medication(s) 6. Rheumatoid arthritis, involving unspecified site, unspecified rheumatoid factor presence (HCC) - ICD9: 714.0, ICD10: M06.9 Per rheumatology. 7. Other hyperlipidemia - ICD9: 272.4, ICD10: E78.4 - suboptimal control - ACC/AHA estimated 10 year ASCVD risk: 22 %. To reduce risk, heart healthy diet is recommended. Also option of statin therapy was discussed, but given her other conditions and adverse effects from statins in the past, we agreed the risks outweigh the benefits. Other medications are not as proven for risk reduction. 8. Acquired hypothyroidism - ICD9: 244.9, ICD10: E03.9 - continue current dose of Synthroid 9. Sinus tachycardia - ICD9: 427.89, ICD10: R00.0 Asymptomatic. 10. Debility - ICD9: 799.3, ICD10: R53.81 Fall precautions. 11. Bilateral impacted cerumen - ICD9: 380.4, ICD10: H61.23 Attempted lavage without success. Refer to ENT in town. - [facility] MGMT EAR WAX REMOVA - CONSULT TO ENT 12. Screening for colon cancer - ICD9: V76.51, ICD10: Z12.11 - FECAL OCCULT BLOOD TEST Lucian Bahena MD PROGRESS Observed: 11/01/2017 Status: COMPLETED Source: [place] 11:39 AM [facility] REPOSITORY O ID: [id number] Author: Lucian Bahena Service: (none) Author Type: Physician Type: Progress Notes Filed: 11/01/2017 12:55 PM Note Text: Medicare Yearly Visit Medical B eligibilty date 2004 Date of last exam N/A PAST MEDICAL HISTORY Diagnosis Date - Chronic rhinitis 02/05/2006 - Clostridium difficile diarrhea 12/09/2015 - Debility 02/08/2017 - Dislocation closed, shoulder 05/28/2010 Left shoulder, accidental fall - Diverticulosis of colon (without mention of hemorrhage) - Essential hypertension, benign 02/05/2006 - OA (osteoarthritis) of knee 06/04/2014 - Other and unspecified hyperlipidemia 02/05/2006 - Parkinsonism (HCC) 07/17/2014 Dr. Sue Rubalcava. Neurology. - Rheumatoid arthritis(714.0) 2009 - Unspecified hypothyroidism 02/05/2006 PAST SURGICAL HISTORY Procedure Laterality Date - COLONOSCOP W/ OR W/O BRSH SPEC 07/26/2006 Colonoscopy - REMOVAL OF TONSILS,<10 Y/O 1954 Tonsillectomy - TOTAL HIP JOINT REPLACEMENT Right - TOTAL HIP REPLACEMENT Left January Hip replacement, total, LEFT Bactrim [Sulfamethoxazole]; Statins [Jqyxtai-Dxo-Cea Reductase Inhibitors]; Hormone Replacement [Other] Medications reviewed: Yes FAMILY HISTORY Problem Relation Age of Onset - Cancer Mother Pancreatic cancer - GI Father of transfusion related Hep. C - Arthritis Father Hip replacements, multiple - Cancer Paternal Grandmother SOCIAL HISTORY: Social History Marital status: Spouse name: Aung Years of education: 16 Number of children: 3 Occupational History Occupation Employer Comment retired store Social History Main Topics Smoking status: Never Smoker Smokeless status: Never Used Alcohol use: Yes Comment: Rarely- wine with dinner Drug use: No Sexual activity: Yes Graciela is more or less sedentary occasionally exercising in the form of therapeutic exercises. She watches her diet for sodium, low fat and low cholesterol most of the time. List of current specialists seen: Dr. Hi, neurology. Dr. Rajput, rheumatology. Dr. Robles, dermatology. Dr. Field podiatry. End of Live Planning discussed including patients advanced directive wishes: Yes I am willing to follow Graciela's advanced directives. Depression screen She in the past two weeks admits to having felt down or depressed on some days. Functional Ability/Safety Screen 1. Was the patient's timed Up and Go test unsteady or longer than 30 seconds? Yes 2. Does the patient need help with the phone, transportation, shopping,preparing meals, housework, laundry, medications or managing money? No 3. Does your home have rugs in the hallway, lack of grab bars in the bathroom, lack of handrails on the stairs or have poor lighting? No Hearing Evaluation: normal PHYSICAL EXAM BP 130/89 (BP Site: Left Arm, BP Position: Sitting, BP Cuff Size: Regular Adult) Pulse 113 Temp 36.7 ?C (98.1 ?F) (Right Tympanic) Resp 18 Ht 156.2 cm (5' 1.5) Wt 90.3 kg (199 lb) BMI 36.99 kg/m2 Alert and oriented X 3: YES Body mass index is 36.99 kg/(m2). Visual acuity: OD: 20/40 OS: 20/ 40 OU: 20/25 with glasses. ASSESSMENT/PLAN: 77 year old female The following prevention plan was discussed during the office visit and provided to the patient: - Fall avoidance - Colorectal Cancer screening Fecal occult blood testing Lucian Bahena MD CNOV Observed: 11/01/2017 Status: COMPLETED Source: [place] 10:20 AM [facility] REPOSITORY Office Visit (INTMWS) GRACIELA ORONA ([id number]) 1940 [address] [facility] Date Time Provider Department 11/01/17 10:20 AM LUCIAN BAHENA INTMWS During your visit today, we recorded the following information about you: Temperature Pulse Respiration Blood pressure 98.1 degrees 113/minute 18/minute 130/89 Weight Height 90.3 kg 1.562 m Lucian Bahena MD 11/01/2017 12:55 PM Signed Medicare Yearly Visit Medical B eligibilty date 2003 Date of last exam N/A PAST MEDICAL HISTORY Diagnosis Date - Chronic rhinitis 02/05/2006 - Clostridium difficile diarrhea 12/09/2015 - Debility 02/08/2017 - Dislocation closed, shoulder 05/28/2010 Left shoulder, accidental fall - Diverticulosis of colon (without mention of hemorrhage) - Essential hypertension, benign 02/05/2006 - OA (osteoarthritis) of knee 06/04/2014 - Other and unspecified hyperlipidemia 02/05/2006 - Parkinsonism (HCC) 07/17/2014 Dr. Sue Rubalcava. Neurology. - Rheumatoid arthritis(714.0) 2009 - Unspecified hypothyroidism 02/05/2006 PAST SURGICAL HISTORY Procedure Laterality Date - COLONOSCOP W/ OR W/O [facility] SPEC 07/26/2006 Colonoscopy - REMOVAL OF TONSILS,ANDlt;10 Y/O 1954 Tonsillectomy - TOTAL HIP JOINT REPLACEMENT Right - TOTAL HIP REPLACEMENT Left January Hip replacement, total, LEFT Bactrim [Sulfamethoxazole]; Statins [Abknnbr-Aii-Eai Reductase Inhibitors]; Hormone Replacement [Other] Medications reviewed: Yes FAMILY HISTORY Problem Relation Age of Onset - Cancer Mother Pancreatic cancer - GI Father of transfusion related Hep. C - Arthritis Father Hip replacements, multiple - Cancer Paternal Grandmother SOCIAL HISTORY: Social History Marital status: Spouse name: Aung Years of education: 16 Number of children: 3 Occupational History Occupation Employer Comment retired store Social History Main Topics Smoking status: Never Smoker Smokeless status: Never Used Alcohol use: Yes Comment: Rarely- wine with dinner Drug use: No Sexual activity: Yes Graciela is more or less sedentary occasionally exercising in the form of therapeutic exercises. She watches her diet for sodium, low fat and low cholesterol most of the time. List of current specialists seen: Dr. Hi, neurology. Dr. Rapjut, rheumatology. Dr. Robles, dermatology. Dr. Field podiatry. End of Live Planning discussed including patients advanced directive wishes: Yes I am willing to follow Graciela's advanced directives. Depression screen She in the past two weeks admits to having felt down or depressed on some days. Functional Ability/Safety Screen 1. Was the patient's timed Up and Go test unsteady or longer than 30 seconds? Yes 2. Does the patient need help with the phone, transportation, shopping,preparing meals, housework, laundry, medications or managing money? No 3. Does your home have rugs in the hallway, lack of grab bars in the bathroom, lack of handrails on the stairs or have poor lighting? No Hearing Evaluation: normal PHYSICAL EXAM BP 130/89 (BP Site: Left Arm, BP Position: Sitting, BP Cuff Size: Regular Adult) Pulse 113 Temp 36.7 ?C (98.1 ?F) (Right Tympanic) Resp 18 Ht 156.2 cm (5' 1.5ANDquot;) Wt 90.3 kg (199 lb) BMI 36.99 kg/m2 Alert and oriented X 3: YES Body mass index is 36.99 kg/(m2). Visual acuity: OD: 20/40 OS: 20/ 40 OU: 20/25 with glasses. ASSESSMENT/PLAN: 77 year old female The following prevention plan was discussed during the office visit and provided to the patient: - Fall avoidance - Colorectal Cancer screening Fecal occult blood testing MD Lucian Kamara MD 11/01/2017 12:55 PM Signed This note was created using [employer]. Subjective Graciela Orona is a 77 year old female here with spouse for follow up. Hypertension was fair. Tachycardia was mainly noted during office visits. She monitored her BP at home and her heart rate was reportedly in the 80s at home. Her debility and parkinsonism was stable. Knee pains were noted with standing and prolonged leg lift exercises. She was not interested in orthopedic consultation at this time, as she had short lived effects from Euflexxa injection in the past. We reviewed her lipids. ACTIVE PROBLEM LIST Essential Hypertension, Benign Other Hyperlipidemia Hypothyroidism Personal history of other malignant neoplasm of skin Rheumatoid Arthritis (Hcc) Oa (Osteoarthritis) of Knee Parkinsonism (Hcc) Debility Sinus Tachycardia Current Outpatient Prescriptions: SYNTHROID 88 mcg tablet Take 1 tablet by mouth once daily. diltiazem CD (CARDIZEM CD) 180 mg 24 hr capsule Take 1 capsule by mouth once daily. triamcinolone acetonide (KENALOG) 0.1 % cream Apply 1 application to affected area three times daily. Apply sparingly to area for rash/itching. carbidopa-levodopa (SINEMET 25-100) 25-100 mg per tablet Take 1 tablet by mouth four times daily. traMADol (ULTRAM) 50 mg tablet Take 1 tablet by mouth every 8 hours as needed for Pain. nystatin (MYCOSTATIN) powder Apply 1 application to affected area four times daily. meloxicam (MOBIC) 7.5 mg tablet Take 1 tablet by mouth once daily. biotin 5 mg caspule Take 1 capsule by mouth once daily. omega-3 fatty acids 1,000 mg cap Take 1 capsule by mouth once daily. leucovorin (LEUCOVORIN) 15 mg tablet Take 1 tablet by mouth once each week. Dr. Rajput Methotrexate Sodium (RHEUMATREX) 2.5 mg tablet Take 6 tablets by mouth once each week. ascorbic acid (VITAMIN C) 500 mg ORAL tablet Take 1 tablet by mouth once daily. folic acid 1 mg ORAL tablet Take two (2) tablets daily. aspirin(ECOTRIN LOW STRENGTH 81 MG TAB) Take one(1) tablet daily. CENTRUM SILVER TAB Take one(1) tablet daily. No current facility-administered medications for this visit. Review of Systems Constitutional: Negative for chills and fever. HENT: Positive for hearing loss and tinnitus. Respiratory: Negative. Cardiovascular: Positive for leg swelling. Negative for chest pain and palpitations. Gastrointestinal: Negative. Musculoskeletal: Positive for arthralgias, gait problem and myalgias. Neurological: Positive for tremors and weakness. Negative for dizziness and headaches. Psychiatric/Behavioral: Negative. Objective BP 130/89 (BP Site: Left Arm, BP Position: Sitting, BP Cuff Size: Regular Adult) Pulse 113 Temp 36.7 ?C (98.1 ?F) (Right Tympanic) Resp 18 Ht 156.2 cm (5' 1.5ANDquot;) Wt 90.3 kg (199 lb) BMI 36.99 kg/m2 Physical Exam Constitutional: She is oriented to person, place, and time. No distress. HENT: Head: Atraumatic. Moderate cerumen, left ANDgt; right. TM's not seen. Eyes: Conjunctivae are normal. Pupils are equal, round, and reactive to light. Neck: No JVD present. Cardiovascular: S1 normal and S2 normal. Tachycardia present. Exam reveals no gallop. No murmur heard. Pulmonary/Chest: Effort normal and breath sounds normal. Musculoskeletal: She exhibits edema. Trace edema. Neurological: She is alert and oriented to person, place, and time. She exhibits abnormal muscle tone. Coordination abnormal. Ambulatory with rollator walker. CMP: Glucose 97 10/26/2017 BUN 11 10/26/2017 Creatinine 0.69 10/26/2017 Sodium 139 10/26/2017 Potassium 4.4 10/26/2017 Chloride 99 10/26/2017 CO2 26 10/26/2017 Calcium 9.6 10/26/2017 Cholesterol, Total (mg/dL) Date Value 10/26/2017 217 03/10/2016 207 HDL Cholesterol (mg/dL) Date Value 10/26/2017 60 03/10/2016 62 LDL Cholesterol (mg/dL) Date Value 10/26/2017 123 03/10/2016 122 Triglyceride (mg/dL) Date Value 10/26/2017 172 03/10/2016 116 TSH (uU/mL) Date Value 10/26/2017 3.890 10/11/2015 3.990 ) Assessment and Plan ASSESSMENT/PLAN: 1. Medicare annual wellness visit, subsequent - ICD9: V70.0, ICD10: Z00.00 (primary diagnosis) See other note. 2. Secondary parkinsonism, unspecified secondary Parkinsonism type (HCC) - ICD9: 332.1, ICD10: G21.9 Per neurology. 3. Personal history of other malignant neoplasm of skin - ICD9: V10.83, ICD10: Z85.828 Per dermatology. 4. Osteoarthritis of knee, unspecified laterality, unspecified osteoarthritis type - ICD9: 715.36, ICD10: M17.10 Try knee supports. Continue therapeutic exercises. 5. Essential hypertension, benign - ICD9: 401.1, ICD10: I10 - fair control - Continue current medication(s) 6. Rheumatoid arthritis, involving unspecified site, unspecified rheumatoid factor presence (HCC) - ICD9: 714.0, ICD10: M06.9 Per rheumatology. 7. Other hyperlipidemia - ICD9: 272.4, ICD10: E78.4 - suboptimal control - ACC/AHA estimated 10 year ASCVD risk: 22 %. To reduce risk, heart healthy diet is recommended. Also option of statin therapy was discussed, but given her other conditions and adverse effects from statins in the past, we agreed the risks outweigh the benefits. Other medications are not as proven for risk reduction. 8. Acquired hypothyroidism - ICD9: 244.9, ICD10: E03.9 - continue current dose of Synthroid 9. Sinus tachycardia - ICD9: 427.89, ICD10: R00.0 Asymptomatic. 10. Debility - ICD9: 799.3, ICD10: R53.81 Fall precautions. 11. Bilateral impacted cerumen - ICD9: 380.4, ICD10: H61.23 Attempted lavage without success. Refer to ENT in town. - PERS HLTH MGMT EAR WAX REMOVA - CONSULT TO ENT 12. Screening for colon cancer - ICD9: V76.51, ICD10: Z12.11 - FECAL OCCULT BLOOD TEST Lucian Bahena MD Referring Provider: LUCIAN BAHENA [[id number]] Allergies As of Date: 11/01/2017 Noted Allergy Reaction BACTRIM (SULFAMETHOXAZOLE) 12/15/2009 7 - Swelling ESTROGENS 02/05/2006 14 - Other: See Comments Comments: Visual spots. STATINS (RIGWOFK-EAE-VQS REDUCTAS*11/06/2008 Comments: Muscle pain Date Reviewed: 11/01/2017 Reviewed by: Gala Gonzalez LPN - Fully Assessed Reason for Visit: Yearly Exam [187] Primary Visit Diagnosis:Medicare annual wellness visit, subsequent [Z00.00] Other Visit Diagnoses:Secondary parkinsonism, unspecified secondary Parkinsonism type (HCC) [G21.9] Personal history of other malignant neoplasm of skin [Z85.828] Osteoarthritis of knee, unspecified laterality, unspecified osteoarthritis type [M17.10] Essential hypertension, benign [I10] Rheumatoid arthritis, involving unspecified site, unspecified rheumatoid factor presence (HCC) [M06.9] Other hyperlipidemia [E78.4] Acquired hypothyroidism [E03.9] Sinus tachycardia [R00.0] Debility [R53.81] Bilateral impacted cerumen [H61.23] Screening for colon cancer [Z12.11] Order(s):FECAL OCCULT BLOOD TEST [SQIFOBT] Order #: [id number] [facility] MGMT EAR WAX REMOVA [97665LLO] Order #: [id number] CONSULT TO ENT [9008] Order #: [id number]: 1 Prescriptions as of 11/01/2017 Sig: SYNTHROID 88 MCG TABLET Take 1 tablet by mouth once d* DILTIAZEM SR 180 MG 24 HR CAP Take 1 capsule by mouth once * TRIAMCINOLONE ACETONIDE 0.1 %* Apply 1 application to affect* CARBIDOPA 25 MG-LEVODOPA 100 * Take 1 tablet by mouth four t* TRAMADOL 50 MG TABLET Take 1 tablet by mouth every * NYSTATIN 100,000 UNIT/GRAM TO* Apply 1 application to affect* MELOXICAM 7.5 MG TABLET Take 1 tablet by mouth once d* BIOTIN 5 MG CAPSULE Take 1 capsule by mouth once * OMEGA-3 FATTY ACIDS 1,000 MG * Take 1 capsule by mouth once * LEUCOVORIN CALCIUM 15 MG TABL* Take 1 tablet by mouth once e* METHOTREXATE SODIUM 2.5 MG TA* Take 6 tablets by mouth once * * ASCORBIC ACID (VITAMIN C) 500* Take 1 tablet by mouth once d* * FOLIC ACID 1 MG TABLET Take two (2) tablets daily. * ECOTRIN LOW STRENGTH 81 MG TA* Take one(1) tablet daily. * CENTRUM SILVER TABLET Take one(1) tablet daily. Medication notes this encounter TRIAMCINOLONE ACETONIDE 0.1 % TOPICAL CREAM >> Gala Gonzalez LPN 11/01/2017 11:06 AM >> GALA GONZALEZ THREAD DRESSER [facility] Nov 01, 2017 11:06 AM PRN NYSTATIN 100,000 UNIT/GRAM TOPICAL POWDER >> Gala Gonzalez THREAD DRESSER 11/01/2017 11:05 AM >> GALA GONZALEZ E THREAD DRESSER [facility] Nov 01, 2017 11:05 AM PRN MELOXICAM 7.5 MG TABLET >> Gala Gonzalez LPN 11/01/2017 11:05 AM >> GALA GONZALEZ THREAD DRESSER [facility] Nov 01, 2017 11:05 AM PRN Problem List As Of Date 11/01/2017 Noted Resolved BENIGN HYPERTENSION [I10] INVALID FOR* Other hyperlipidemia [E78.4] INVALID FOR* Hypothyroidism [E03.9] INVALID FOR* Chronic rhinitis [J31.0] INVALID FOR*06/04/2014 Personal history of other malignant neoplasm of*INVALID FOR* More... Rheumatoid arthritis (HCC) [M06.9] INVALID FOR* Osteoarthritis [M19.90] INVALID FOR*11/01/2017 OA (osteoarthritis) of knee [M17.10] INVALID FOR* More... Parkinsonism (HCC) [G20] INVALID FOR* More... Abnormal mammogram, unspecified [R92.8] INVALID FOR*02/01/2017 Clostridium difficile diarrhea [A04.72] INVALID FOR*03/16/2016 Debility [R53.81] INVALID FOR* Sinus tachycardia [R00.0] INVALID FOR* Disposition: Return in about 6 months (around 05/04/2018). Follow-up and Disposition History Recorded Encounter Status:Closed by LUCIAN BAHENA MD on 3/15/18 BASIC METABOLIC PANL Collected: 10/26/2017 Status: F Source: [place] 9:46 AM [facility] REPOSITORY TYPE CODE TESTS RESULT OUT OF REFERENCE UNITS RANGE LAB GLU 74-99 mg/dL Glucose 97 Result Comment: The [place] Diabetes Association (ADA) provides guidance for cutoff values for fasting glucose and random glucose. The ADA defines fasting as no caloric intake for at least 8 hours. Fas ting plasma glucose results between 100 to 125 mg/dL indicate increased risk for diabetes (prediabetes). Fasting plasma glucose results greater than or equal to 126 mg/dL meet the criteria for diagnosis of diabetes. In the absence of unequivocal hyperglycemia, results should be confirmed by repeat testing. In a patient with classic symptoms of hyperglycemia or hyperglycemic crisis, random plasma glucose results greater than or equal to 200 mg/dL meet the criteria for diagnosis of diabetes. Reference: Standards of Medical Care in Diabetes 2016, [place] Diabetes Association. Diabetes Care. 2016.39(Suppl 1). LAB BUN 7-21 mg/dL BUN 11 LAB CRET 0.58-0.96 mg/dL Creatinine 0.69 LAB NA 136-144 mmol/L Sodium 139 LAB K 3.7-5.1 mmol/L Potassium 4.4 LAB CL 97-105 mmol/L Chloride 99 LAB CO2 22-30 mmol/L CO2 26 LAB AGAP 9-18 mmol/L Anion Gap 14 LAB CA 8.5-10.2 mg/dL Calcium, Total 9.6 LAB GFRAA eGFR- Amer. >60 LAB GFRNAA . eGFR-All Other Races >60 Result Comment: eGFR (Estimated GFR) Units of measure: mL/min/1.73 meters squared eGFR is derived from the reexpressed MDRD Study equation using the following parameters: serum creatinine, age, gender and race. The creatinine assay has been calibrated to be traceable to IDMS. An eGFR <60 mL/min/1.73m2 for >3 months is consistent with chronic kidney disease. Refer to KDOQI guidelines for clinical interpretation. In patients with unstable renal function, e.g. those with acute kidney injury, the eGFR may not accurately reflect actual GFR. Performed By: #### BMP, LIPB, TSH #### [facility] [address] [place], [place] [address] LIPID PANEL, BASIC Collected: 10/26/2017 Status: F Source: [place] 9:46 AM [facility] REPOSITORY TYPE CODE TESTS RESULT OUT OF REFERENCE UNITS RANGE LAB CHOL <200 mg/dL Cholesterol High 217 Result Comment: <200 mg/dL, Desirable 200-239 mg/dL, Borderline high >239 mg/dL, High LAB TRIGLY <150 mg/dL Triglyceride High 172 Result Comment: <150 mg/dL, Normal 150-199 mg/dL, Borderline high 200-499 mg/dL, High >499 mg/dL, Very high LAB HDL >39 mg/dL HDL-Cholesterol 60 Result Comment: 40-59 mg/dL, Acceptable >59 mg/dL, High: Negative risk factor for coronary heart disease <40 mg/dL, Low: Positive risk factor for coronary heart disease LAB LDL <100 mg/dL LDL-Cholesterol High 123 Result Comment: <100 mg/dL, Optimal 100-129 mg/dL, Near optimal/above optimal 130-159 mg/dL, Borderline high 160-189 mg/dL, High >189 mg/dL, Very high Secondary prevention optimal LDL Cholesterol levels are recommended to be < 70 mg/dL LAB NONHDL <130 mg/dL Non HDL High Cholesterol 157 Result Comment: <130 mg/dL, Optimal 130-159 mg/dL, Near optimal/above optimal 160-189 mg/dL, Borderline high 190-219 mg/dL, High >219 mg/dL, Very high Secondary prevention optimal non HDL Cholesterol levels are recommended to be < 100 mg/dL LAB FT hrs Fasting Time 14 LAB VLDL <30 mg/dL High VLDL Cholesterol 34 LAB TCHDL <5.10 TC:HDL Ratio 3.62 LAB LDLHDL <2.54 LDL:HDL Ratio 2.05 Result Comment: Reference: 1. National Cholesterol Education Program ATP III Guideline At-A-Glance Quick Desk Reference: National Heart, Lung, and Blood [place]. National Institutes of Health. 2001: NIH Publication No. 01-3305. 2. An International Atherosclerosis Society position paper: global recommendations for the management of dyslipidemia: executive summary, Atherosclerosis. 2014: 232(2):410-413. Performed By: #### BMP, LIPB, TSH #### [facility] [address] [place], [place] [address] TSH Collected: 10/26/2017 Status: F Source: [place] 9:46 AM [facility] REPOSITORY TYPE CODE TESTS RESULT OUT OF RANGE REFERENCE UNITS LAB TSH 0.400-5.500 uU/mL TSH 3.890 Performed By: #### BMP, LIPB, TSH #### [facility] [address] [place], [place] [address] MAYELAUTRKENIA Observed: 10/16/2017 Status: COMPLETED Source: [place] 12:00 AM [facility] REPOSITORY Patient Outreach (INTMWH) GRACIELA ORONA ([id number]) 1940 F CHT Date Time Provider Department 10/16/17 LUCIAN BAHENA INTMWH During your visit today, we recorded the following information about you: Allergies As of Date: 10/16/2017 Noted Allergy Reaction BACTRIM (SULFAMETHOXAZOLE) 12/15/2009 7 - Swelling hormone replacement [Other] 02/05/2006 5 - Intolerance STATINS (YHXCARR-WEY-SSR REDUCTAS*11/06/2008 Comments: Muscle pain Date Reviewed: 05/04/2017 Reviewed by: Erica Chen Ma - Fully Assessed Visit Diagnosis:Medication management [Z79.899] Order(s):BASIC METABOLIC PNL [SQBMP] Order #: [id number] FUTURE TSH BLD [SQTSH] Order #: [id number] FUTURE LIPID PANEL BASIC [SQLIPB] Order #: [id number] FUTURE Prescriptions as of 10/16/2017 Sig: DILTIAZEM SR 180 MG 24 HR CAP Take 1 capsule by mouth once * TRIAMCINOLONE ACETONIDE 0.1 %* Apply 1 application to affect* X LEVOTHYROXINE 88 MCG TABLET Take 1 tablet by mouth once d* X CARBIDOPA 25 MG-LEVODOPA 100 * Take 1 tablet by mouth four t* Patient taking differently: Take 1 tablet by mouth five t* TRAMADOL 50 MG TABLET Take 1 tablet by mouth every * NYSTATIN 100,000 UNIT/GRAM TO* Apply 1 application to affect* BIOTIN 5 MG CAPSULE Take 1 capsule by mouth once * OMEGA-3 FATTY ACIDS 1,000 MG * Take 1 capsule by mouth once * X MELOXICAM 7.5 MG TABLET Take 1 tablet by mouth once d* LEUCOVORIN CALCIUM 15 MG TABL* Take 1 tablet by mouth once e* METHOTREXATE SODIUM 2.5 MG TA* Take 6 tablets by mouth once * * ASCORBIC ACID (VITAMIN C) 500* Take 1 tablet by mouth once d* * FOLIC ACID 1 MG TABLET Take two (2) tablets daily. * ECOTRIN LOW STRENGTH 81 MG TA* Take one(1) tablet daily. * CENTRUM SILVER TABLET Take one(1) tablet daily. Problem List As Of Date 10/16/2017 Noted Resolved BENIGN HYPERTENSION [I10] INVALID FOR* HYPERLIPIDEMIA NEC/NOS [E78.5] INVALID FOR* Hypothyroidism [E03.9] INVALID FOR* Chronic rhinitis [J31.0] INVALID FOR*06/04/2014 PERS HX SKIN MALIGNANCY NEC [Z85.828] INVALID FOR* More... Rheumatoid Arthritis [M06.9] INVALID FOR* Osteoarthritis [M19.90] INVALID FOR* OA (osteoarthritis) of knee [M17.10] INVALID FOR* More... Parkinsonism (HCC) [G20] INVALID FOR* More... Abnormal mammogram, unspecified [R92.8] INVALID FOR*02/01/2017 Clostridium difficile diarrhea [A04.72] INVALID FOR*03/16/2016 Debility [R53.81] INVALID FOR* Sinus tachycardia [R00.0] INVALID FOR* Encounter Status:Closed by [employer], PRODUSER on 05/31/18 CBC W/DIFF, AUTOMATED Collected: 08/10/2017 Status: F Source: [place] 9:50 AM [facility] REPOSITORY TYPE CODE TESTS RESULT OUT OF RANGE REFERENCE UNITS LAB L100.1000 4.4-11.0 K/mm3 Normal WBC 5.1 LAB L100.1200 4.2-5.4 M/mm3 Normal RBC 4.30 LAB L100.1300 12.0-15.0 g/dl Normal HGB 13.5 LAB L100.1400 37-47 % Normal HCT 42.0 LAB L100.1500 81-99 fL Normal MCV 97.7 LAB L100.1600 27.0-32.0 pg Normal MCH 31.4 LAB L100.1700 32-36 g/gl Normal MCHC 32.1 LAB L100.1810 11.6-14.6 % Normal RDW CV 13.8 LAB L100.1820 35.1-43.9 fl High RDW SD 48.0 LAB L100.1900 150-450 K/mm3 Normal PLT 303 LAB L100.2000 6.2-12.0 fl Normal MPV 9.1 LAB L100.2100 47-70 % Normal NEUT% 48.7 LAB L100.2200 19-41 % Normal LY% 37.0 LAB L100.2300 0-10 % High MONO% 11.7 LAB L100.2400 0-5 % Normal EO% 2.2 LAB L100.2500 0-1 % Normal BASO% 0.4 LAB L100.2550 0.0-0.9 % Normal IM GRAN % 0.000 Result Comment: IG% - Immature Granulocytes (promyelocytes, myelocytes and metamyelocytes) > 1% indicates that a LEFT SHIFT is Present. LAB L100.2620 2.0-7.7 X10 3/uL Normal Absolute Neut 2.5 LAB L100.2720 0.83-4.51 X10 3/ul Normal Absolute Lymph 1.87 Performed By: #### L100.0100 #### [facility] [address] [place], [place], [address] COMPREHENSIVE METABOLIC Collected: 08/10/2017 Status: F Source: [facility] 9:50 AM [facility] REPOSITORY TYPE CODE TESTS RESULT OUT OF RANGE REFERENCE UNITS LAB L501.0100 70-110 mg/dL Normal GLU 81 LAB L501.1000 7-18 mg/dL Normal BUN 11 LAB L501.1100 0.55-1.02 mg/dL Normal 0.77 CREAT,SERUM Result Comment: The validity of the calculated GFR AND GFRAA in patients over 70 years has not been determined. Clinical correlation is essential. LAB L501.1110 >60 mL/min Normal EST GFR 76 Result Comment: Non- GFR Calc LAB L501.1115 >60 mL/min Normal EST GFR - AA 93 Result Comment: GFR Calc LAB L501.1300 10-20 RATIO Normal BUN/CRE 14.2 LAB L501.1500 6.4-8.2 g/dL High T PROT 8.3 LAB L501.1800 3.4-5.0 g/dL Normal ALB 4.2 Result Comment: Please note revised Albumin AND Globulin reference range effective 2017. LAB L501.1950 2.2-4.2 g/dL Normal GLOB 4.1 LAB L501.2000 0.9-2.4 RATIO Normal A/G 1.0 LAB L501.2200 8.5-10.1 mg/dL Normal CA 9.0 LAB L501.4100 15-37 U/L Normal AST 19 Result Comment: Slight Hemolysis, Result may be falsely increased. LAB L501.4305 45-117 U/L Normal ALK P 69 LAB L501.4405 12-78 U/L Normal ALT 13 LAB L501.4600 0.20-1.00 mg/dL High T BILI 1.20 LAB L501.5300 136-145 mmol/L Low NA 135 LAB L501.5600 3.5-5.1 mmol/L Normal K 3.9 Result Comment: Slight Hemolysis, Result may be falsely increased. LAB L501.5900 98-107 mmol/L Normal CL 100 LAB L501.6100 21.0-32.0 mmol/L Normal CO2 27.0 LAB L501.6200 5-15 Normal 8 GAP Performed By: #### L500.4050 #### [facility] [address] [facility] [place], [address] ALLERGIES ALLERGIES DATE TYPE / CODE NAME / CODE REACTION SEVERITY SOURCE 12/31/19 Drug Sulfa (Sulfonamide Swelling Unknown [place] 16 Allergy/[id number] Antibiotics)/[id number] Formerly [facility] (SNOMED CT) 491(RXNORM) Hospital Repository 12/31/19 Drug Erkxkdk-Vnn-Pdw Other Unknown [place] [facility] Allergy/421726406 Reductase Formerly [facility] (SNOMED CT) Inhibitor/[id number] Hospital (RXNORM) Repository 12/31/19 Drug sulfamethoxazole/F00 Swelling Unknown [place] [facility] Allergy/[id number] 4437656(RXNORM) Formerly [facility] (OMED CT) Hospital Repository 12/31/19 Drug trimethoprim/X321112 Swelling Unknown [place] [facility] Allergy/602110445 873(RXNORM) [facility] (SNOMED CT) Hospital Repository 12/31/19 Miscellaneous HORMONE REPLACEMNT bleeding/visual Unknown [place] 16 Allergy/[id number] problems [facility]ly [facility] (SNOMED CT) Hospital Repository 12/16/19 DRUG SULFAMETHOXAZOLE SWELLING [place] 10 INGREDI/[id number] [facility] (SNOMED CT) [place] Repository 11/07/19 Drug FAUQQXS-AHD-KLO [place] 09 Class/[id number](S REDUCTASE INHIBITORS [facility] Main NOMED CT) [place] Repository 02/06/20 Drug ESTROGENS OTHER: SEE C [place] 06 Class/462907914(S Clinic Main NOMED CT) [place] Repository 02/06/20 Miscellaneous OTHER INTOLERANCE [place] 06 Allergy/[id number] [facility] (SNOMED CT) [place] Repository ENCOUNTERS ENCOUNTERS ADMIT/DISCHARGE ACCOUNT ADMITTING ENCOUNTER LOCATION SOURCE NUMBER CLASS 07/18/2018 [id number] [facility] ing:[facility] Repository 06/07/2018/06/10/[id number] Repository 05/08/2018/05/09/[id number] Repository 04/26/2018 [id number] [facility] ing:[facility] Repository 04/10/2018/04/11/[id number] Repository 01/30/2018 [id number] [facility] ing:[facility] Repository 12/01/2017/12/14/[id number] Repository 11/12/2017 [id number] [facility] Repository 11/07/2017 [id number] [facility] ing:MTLAB Repository 11/01/2017/11/03/[id number] Repository 10/26/2017/10/27/[id number] Repository 08/10/2017 [id number] [facility] ing:MTLAB Repository PAYERS PAYERS ENCOUNTER GUARANTOR PAYER SUBSCRIBER SOURCE 07/18/2018 AUNG Burns Primary GRCAIELA Clarke Andrew [id number] Insurance:MEDICARE CHAPMANDOB: [address], PART A [facility] [id number] [place] [address]Nkc: Number: Repository [id number] (HP) Date:2018-07-18 07/18/2018 Secondary GRACIELA A Andrew Insurance:ANTHEMPolic CHAPMANDOB: Community y Number: [id number] [facility] Medical [id number] Repository Date:[id number] [place] [address] [place] [address]DX: 07/18/2018 Tertiary NOT GIVENUNK Andrew Insurance:SELF PAY [facility] Number: Effective Repository Date:2018-07-18 04/26/2018 AUNG Burns Primary GRACIELA A [place] [id number] TR Insurance:MEDICARE CHAPMANDOB: [address], PART A [facility] [id number] [address]Jow: Number: Repository [id number] (HP) Date:2018-04-26 04/26/2018 Secondary GRACIELA A [place] Insurance:ANTHEMPolic CHAPMANDOB: Community y Number: [id number] [facility] Medical [id number] Repository Date:[id number] [address]ZU: 04/26/2018 Tertiary NOT GIVENUNK [place] Insurance:SELF PAY [facility] Number: Effective Repository Date:2018-04-26 01/30/2018 Aung Burns Primary GRACIELA A Andrew [id number] TR Insurance:MEDICARE CHAPMANDOB: Community [address] [place] [address], PART A [facility] [id number] [place] [address]Bjm: Number: Repository [id number] (HP) Date:2018-01-30 01/30/2018 Secondary GRACIELA A Andrew Insurance:ANTHEMPolic CHAPMANDOB: Community y Number: [id number] Hospital [id number] Repository Date:[id number], [place] [address]PA: 01/30/2018 Tertiary NOT GIVENUNK [place] Insurance:SELF PAY [facility] Number: Effective Repository Date:2018-01-30 11/07/2017 Aung S Primary GRACIELA A Andrew [id number] TR Insurance:MEDICARE CHAPMANDOB: [address], PART A [facility] [id number] [address]Eyc: Number: Repository [id number] () Date:2017-11-07 11/07/2017 Secondary GRACIELA A [place] Insurance:ANTHEMPolic CHAPMANDOB: Community y Number: [id number] Hospital [id number] Repository Date:[id number] [address] [place] [id number]: 11/07/2017 Tertiary NOT GIVENUNK Andrew Insurance:SELF PAY [facility] Number: Effective Repository Date:2017-11-07 08/10/2017 Aung Primary GRACIELA A Andrew [id number] Insurance:MEDICARE CHAPMANDOB: [facility] [place] [facility] [id number], Number: Repository [place] [id number]: [id number] Date:2017-08-10 () 08/10/2017 Secondary GRACIELA A [place] Insurance:ANTHEMPolic CHAPMANDOB: Community y Number: [id number] Hospital [id number] Repository Date:[id number] [address] [place] [address]IO: 08/10/2017 Tertiary NOT GIVENUNK Andrew Insurance:SELF PAY [facility] Number: Effective Repository Date:2017-08-10
== END ==
PROVIDERS: Family Provider Internal Medicine; PCP Internal Medicine; Referring Provider Internal Medicine Rheumatology; Visit Provider Internal Medicine Rheumatology
DX: M05.70 Rheumatoid arthritis with rheumatoid factor of unspecified site without organ or systems involvement (principal)
CPT/HCPCS: 36415; 80053; 85025

== ENCOUNTER → 2018-10-16 10:10 | Outpatient (CLI) | payer MEDICARE, OTHER, SELFPAY ==
[2018-10-16 12:42] LABS: Absolute Lymphocyte Count 1.58 X10^3/ul (0.83-4.51); Absolute Neutrophil Count 2.8 X10^3/uL (2.0-7.7); Basophil# 0.04 X10^3/uL; Basophil% 0.8 % (0-1); Eosinophil# 0.12 X10^3/uL; Eosinophils% 2.4 % (0-5); Hematocrit 45.1 % (37-47); Hemoglobin 14.4 g/dl (12.0-15.0); Lymphocyte # 1.58 X10^3/ul (4.0); Mean Corp Hgb Conc 31.9 g/gl (32-36); Mean Corpuscular Hgb 31.6 pg (27.0-32.0); Mean Corpuscular Volume 98.9 fL (81-99); Mean Platelet Vol. 9.4 fl (6.2-12.0); Monocyte# 0.59 X10^3/uL; Monocyte% 11.6 % (0-10); Neutrophil # 2.77 X10^3/uL (2.7-7.7); Neutrophil % 54.2 % (47-70); Platelet Count 304 K/mm3 (150-450); RBC Distribution Width CV 13.8 % (11.6-14.6); RBC Distribution Width SD 49.4 fl (35.1-43.9); Red Blood Count 4.56 M/mm3 (4.2-5.4); White Blood Count 5.1 K/mm3 (4.4-11.0)
[2018-10-16 12:43] LABS: POSITIVE COUNT NO; POSITIVE DIFFERENTIAL NO; POSITIVE MORPHOLOGY NO
[2018-10-16 12:57] LABS: ALB/GLOB Ratio 1.2 RATIO (0.9-2.4); AST(SGOT) 15 U/L (15-37); Alanine Aminotransfer ALT/SGPT 13 U/L (13-56); Albumin, Serum 4.6 g/dL (3.2-5.0); Alkaline Phosphatase 73 U/L (45-117); Anion Gap 10 (5-15); BUN 9 mg/dL (7-18); Calcium,Total 9.1 mg/dL (8.5-10.1); Chloride 102 mmol/L (98-107); Creatinine, Serum 0.82 mg/dL (0.55-1.02); EST Glomerular Filtration Rate 72 mL/min (>60); Est Glom Filt Rate - Afr Amer 87 mL/min (>60); Globulin 3.9 g/dL (2.2-4.2); Glucose 89 mg/dL (74-106); Potassium 4.1 mmol/L (3.5-5.1); Protein, Total 8.5 g/dL (6.4-8.2); Sodium Level 139 mmol/L (136-145)
== END ==
PROVIDERS: Family Provider Internal Medicine; PCP Internal Medicine; Referring Provider Internal Medicine Rheumatology; Visit Provider Internal Medicine Rheumatology
DX: M05.70 Rheumatoid arthritis with rheumatoid factor of unspecified site without organ or systems involvement (principal); Z79.899 Other long term (current) drug therapy; M18.11 Unilateral primary osteoarthritis of first carpometacarpal joint, right hand; M17.0 Bilateral primary osteoarthritis of knee; M16.0 Bilateral primary osteoarthritis of hip; M47.897 Other spondylosis, lumbosacral region
CPT/HCPCS: 36415; 80053; 85025

== ENCOUNTER → 2019-01-20 | Outpatient (CLI) | payer MEDICARE, OTHER, SELFPAY ==
[2019-01-20 12:28] LABS: Absolute Lymphocyte Count 1.43 X10^3/ul (0.83-4.51); Absolute Neutrophil Count 3.2 X10^3/uL (2.0-7.7); Basophil# 0.03 X10^3/uL; Basophil% 0.6 % (0-1); Eosinophil# 0.11 X10^3/uL; Hematocrit 41.4 % (37-47); Hemoglobin 13.4 g/dl (12.0-15.0); Lymphocyte # 1.43 X10^3/ul (4.0); Lymphocyte % 26.3 % (19-41); Mean Corp Hgb Conc 32.4 g/gl (32-36); Mean Corpuscular Hgb 31.2 pg (27.0-32.0); Mean Corpuscular Volume 96.5 fL (81-99); Monocyte# 0.71 X10^3/uL; Monocyte% 13.1 % (0-10); Neutrophil # 3.16 X10^3/uL (2.7-7.7); Platelet Count 317 K/mm3 (150-450); RBC Distribution Width CV 14.1 % (11.6-14.6); Red Blood Count 4.29 M/mm3 (4.2-5.4); White Blood Count 5.4 K/mm3 (4.4-11.0)
[2019-01-20 12:46] LABS: POSITIVE COUNT NO; POSITIVE DIFFERENTIAL NO; POSITIVE MORPHOLOGY NO
[2019-01-20 12:50] LABS: AST(SGOT) 19 U/L (15-37); Alanine Aminotransfer ALT/SGPT 10 U/L (13-56); Alkaline Phosphatase 67 U/L (45-117); Anion Gap 9 (5-15); BUN 10 mg/dL (7-18); BUN/Creat Ratio 13.1 RATIO (10-20); Calcium,Total 9.2 mg/dL (8.5-10.1); Chloride 102 mmol/L (98-107); Creatinine, Serum 0.76 mg/dL (0.55-1.02); EST Glomerular Filtration Rate 78 mL/min (>60); Est Glom Filt Rate - Afr Amer 94 mL/min (>60); Globulin 4.1 g/dL (2.2-4.2); Glucose 86 mg/dL (74-106); Protein, Total 8.1 g/dL (6.4-8.2); Sodium Level 136 mmol/L (136-145)
== END | disposition home or self-care (01) ==
LOC: MTLAB 10:13
PROVIDERS: Family Provider Internal Medicine; PCP Internal Medicine; Referring Provider Internal Medicine Rheumatology; Visit Provider Internal Medicine Rheumatology
DX: M05.70 Rheumatoid arthritis with rheumatoid factor of unspecified site without organ or systems involvement (principal); Z79.899 Other long term (current) drug therapy; M15.9 Polyosteoarthritis, unspecified; M18.11 Unilateral primary osteoarthritis of first carpometacarpal joint, right hand; M17.0 Bilateral primary osteoarthritis of knee; M16.0 Bilateral primary osteoarthritis of hip; M47.897 Other spondylosis, lumbosacral region; G20 Parkinson's disease; I10 Essential (primary) hypertension; E78.5 Hyperlipidemia, unspecified; E03.9 Hypothyroidism, unspecified
CPT/HCPCS: 36415; 80053; 85025

== ENCOUNTER → 2019-04-09 10:51 | Outpatient (CLI) | payer MEDICARE, OTHER, SELFPAY ==
[2019-04-09 12:40] LABS: Absolute Lymphocyte Count 1.49 X10^3/uL (0.83-4.51); Absolute Neutrophil Count 3.2 X10^3/uL (2.0-7.7); Basophil# 0.03 X10^3/uL; Basophil% 0.5 % (0-1); Eosinophil# 0.07 X10^3/uL; Eosinophils% 1.3 % (0-5); Hematocrit 41.9 % (37-47); Hemoglobin 13.6 g/dL (12.0-15.0); Lymphocyte # 1.49 X10^3/ul (4.0); Lymphocyte % 27.3 % (19-41); Mean Corp Hgb Conc 32.5 g/dL (32-36); Mean Corpuscular Hgb 32.1 pg (27.0-32.0); Mean Corpuscular Volume 98.8 fL (81-99); Mean Platelet Vol. 9.1 fl (6.2-12.0); Monocyte% 12.8 % (0-10); NRBC Flagged by Analyzer 0 % (0-5); Neutrophil # 3.15 X10^3/uL (2.7-7.7); Neutrophil % 57.7 % (47-70); Platelet Count 288 K/mm3 (150-450); RBC Distribution Width CV 13.5 % (11.6-14.6); RBC Distribution Width SD 47.8 fl (35.1-43.9); Red Blood Count 4.24 M/mm3 (4.2-5.4); White Blood Count 5.5 K/mm3 (4.4-11.0)
[2019-04-09 12:57] LABS: ALB/GLOB Ratio 1.1 RATIO (0.9-2.4); AST(SGOT) 14 U/L (15-37); Alanine Aminotransfer ALT/SGPT 8 U/L (13-56); Albumin, Serum 4.2 g/dL (3.2-5.0); Alkaline Phosphatase 68 U/L (45-117); Anion Gap 5 (5-15); BUN 8 mg/dL (7-18); BUN/Creat Ratio 10.6 RATIO (10-20); Calcium,Total 8.9 mg/dL (8.5-10.1); Chloride 103 mmol/L (98-107); Creatinine, Serum 0.76 mg/dL (0.55-1.02); EST Glomerular Filtration Rate 78 mL/min (>60); Est Glom Filt Rate - Afr Amer 95 mL/min (>60); Globulin 3.9 g/dL (2.2-4.2); Glucose 83 mg/dL (74-106); Potassium 3.9 mmol/L (3.5-5.1); Protein, Total 8.1 g/dL (6.4-8.2); Sodium Level 136 mmol/L (136-145)
== END ==
PROVIDERS: Family Provider Internal Medicine; PCP Internal Medicine; Referring Provider Internal Medicine Rheumatology; Visit Provider Internal Medicine Rheumatology
DX: M05.70 Rheumatoid arthritis with rheumatoid factor of unspecified site without organ or systems involvement (principal); Z79.899 Other long term (current) drug therapy; M18.11 Unilateral primary osteoarthritis of first carpometacarpal joint, right hand; M17.0 Bilateral primary osteoarthritis of knee; M16.0 Bilateral primary osteoarthritis of hip; M47.897 Other spondylosis, lumbosacral region; G20 Parkinson's disease; I10 Essential (primary) hypertension; E03.9 Hypothyroidism, unspecified
CPT/HCPCS: 36415; 80053; 85025

== ENCOUNTER → 2019-07-10 09:41 | Outpatient (CLI) | payer MEDICARE, OTHER, SELFPAY ==
[2019-07-10 12:32] LABS: Absolute Lymphocyte Count 1.61 X10^3/uL (0.83-4.51); Absolute Neutrophil Count 3.1 X10^3/uL (2.0-7.7); Basophil# 0.05 X10^3/uL; Basophil% 0.9 % (0-1); Eosinophil# 0.13 X10^3/uL; Eosinophils% 2.4 % (0-5); Hematocrit 41.9 % (37-47); Hemoglobin 13.2 g/dL (12.0-15.0); Lymphocyte # 1.61 X10^3/ul (4.0); Lymphocyte % 29.7 % (19-41); Mean Corp Hgb Conc 31.5 g/dL (32-36); Mean Corpuscular Hgb 31.5 pg (27.0-32.0); Mean Platelet Vol. 9.1 fl (6.2-12.0); Monocyte# 0.56 X10^3/uL; Monocyte% 10.3 % (0-10); NRBC Flagged by Analyzer 0 % (0-5); Neutrophil # 3.06 X10^3/uL (2.7-7.7); Neutrophil % 56.5 % (47-70); Platelet Count 277 K/mm3 (150-450); RBC Distribution Width CV 13.8 % (11.6-14.6); RBC Distribution Width SD 50.4 fl (35.1-43.9); Red Blood Count 4.19 M/mm3 (4.2-5.4); White Blood Count 5.4 K/mm3 (4.4-11.0)
[2019-07-10 13:11] LABS: ALB/GLOB Ratio 1.1 RATIO (0.9-2.4); AST(SGOT) 11 U/L (15-37); Alanine Aminotransfer ALT/SGPT 13 U/L (13-56); Albumin, Serum 4.2 g/dL (3.2-5.0); Alkaline Phosphatase 66 U/L (45-117); Anion Gap 8 (5-15); BUN 11 mg/dL (7-18); BUN/Creat Ratio 13.8 RATIO (10-20); Chloride 101 mmol/L (98-107); EST Glomerular Filtration Rate 74 mL/min (>60); Est Glom Filt Rate - Afr Amer 89 mL/min (>60); Globulin 3.7 g/dL (2.2-4.2); Glucose 85 mg/dL (74-106); Protein, Total 7.9 g/dL (6.4-8.2); Sodium Level 137 mmol/L (136-145)
== END ==
PROVIDERS: Family Provider Internal Medicine; PCP Internal Medicine; Referring Provider Internal Medicine Rheumatology; Visit Provider Internal Medicine Rheumatology
DX: M05.70 Rheumatoid arthritis with rheumatoid factor of unspecified site without organ or systems involvement (principal); Z79.899 Other long term (current) drug therapy; M17.0 Bilateral primary osteoarthritis of knee; M18.11 Unilateral primary osteoarthritis of first carpometacarpal joint, right hand; M16.0 Bilateral primary osteoarthritis of hip; M47.897 Other spondylosis, lumbosacral region; G20 Parkinson's disease; I10 Essential (primary) hypertension; E78.5 Hyperlipidemia, unspecified; E03.9 Hypothyroidism, unspecified
CPT/HCPCS: 36415; 80053; 85025

== ENCOUNTER → 2019-10-08 09:17 | Outpatient (CLI) | payer MEDICARE, OTHER, SELFPAY ==
[2019-10-08 10:18] LABS: Absolute Lymphocyte Count 1.18 X10^3/uL (0.83-4.51); Absolute Neutrophil Count 5.7 X10^3/uL (2.0-7.7); Basophil# 0.02 X10^3/uL; Basophil% 0.3 % (0-1); Eosinophil# 0.13 X10^3/uL; Eosinophils% 1.6 % (0-5); Hematocrit 42.3 % (37-47); Hemoglobin 13.5 g/dL (12.0-15.0); Lymphocyte # 1.18 X10^3/ul (4.0); Mean Corp Hgb Conc 31.9 g/dL (32-36); Mean Corpuscular Hgb 31.5 pg (27.0-32.0); Mean Corpuscular Volume 98.8 fL (81-99); Monocyte# 0.84 X10^3/uL; Monocyte% 10.6 % (0-10); NRBC Flagged by Analyzer 0 % (0-5); Neutrophil % 72.2 % (47-70); Platelet Count 286 K/mm3 (150-450); RBC Distribution Width CV 13.5 % (11.6-14.6); RBC Distribution Width SD 49.2 fl (35.1-43.9); Red Blood Count 4.28 M/mm3 (4.2-5.4); White Blood Count 7.9 K/mm3 (4.4-11.0)
[2019-10-08 11:18] LABS: AST(SGOT) 10 U/L (15-37); Alanine Aminotransfer ALT/SGPT 12 U/L (13-56); Alkaline Phosphatase 70 U/L (45-117); Anion Gap 5 (5-15); BUN 12 mg/dL (7-18); BUN/Creat Ratio 14.3 RATIO (10-20); Calcium,Total 9.4 mg/dL (8.5-10.1); Chloride 104 mmol/L (98-107); Creatinine, Serum 0.84 mg/dL (0.55-1.02); EST Glomerular Filtration Rate 69 mL/min (>60); Est Glom Filt Rate - Afr Amer 84 mL/min (>60); Glucose 90 mg/dL (74-106); Sodium Level 137 mmol/L (136-145)
== END ==
PROVIDERS: PCP Internal Medicine; Referring Provider Internal Medicine Rheumatology; Visit Provider Internal Medicine Rheumatology
DX: M05.70 Rheumatoid arthritis with rheumatoid factor of unspecified site without organ or systems involvement (principal); Z79.899 Other long term (current) drug therapy; M15.9 Polyosteoarthritis, unspecified; M18.11 Unilateral primary osteoarthritis of first carpometacarpal joint, right hand; M17.0 Bilateral primary osteoarthritis of knee; M16.0 Bilateral primary osteoarthritis of hip; M47.897 Other spondylosis, lumbosacral region; G20 Parkinson's disease; I10 Essential (primary) hypertension; E78.5 Hyperlipidemia, unspecified; E03.9 Hypothyroidism, unspecified
CPT/HCPCS: 36415; 80053; 85025

== ENCOUNTER → 2020-01-02 09:52 | Outpatient (CLI) | payer MEDICARE, OTHER, SELFPAY ==
[2020-01-02 12:51] LABS: Absolute Lymphocyte Count 1.68 X10^3/uL (0.83-4.51); Basophil# 0.04 X10^3/uL; Basophil% 0.7 % (0-1); Eosinophil# 0.14 X10^3/uL; Eosinophils% 2.5 % (0-5); Hematocrit 40.4 % (37-47); Lymphocyte # 1.68 X10^3/ul (4.0); Mean Corp Hgb Conc 32.2 g/dL (32-36); Mean Corpuscular Hgb 31.9 pg (27.0-32.0); Mean Corpuscular Volume 99.3 fL (81-99); Mean Platelet Vol. 9.1 fl (6.2-12.0); Monocyte# 0.72 X10^3/uL; Monocyte% 12.9 % (0-10); NRBC Flagged by Analyzer 0 % (0-5); Neutrophil # 3.01 X10^3/uL (2.7-7.7); Neutrophil % 53.7 % (47-70); Platelet Count 291 K/mm3 (150-450); RBC Distribution Width CV 13.7 % (11.6-14.6); RBC Distribution Width SD 48.9 fl (35.1-43.9); Red Blood Count 4.07 M/mm3 (4.2-5.4); White Blood Count 5.6 K/mm3 (4.4-11.0)
[2020-01-02 13:29] LABS: ALB/GLOB Ratio 1.1 RATIO (0.9-2.4); AST(SGOT) 12 U/L (15-37); Alanine Aminotransfer ALT/SGPT 11 U/L (13-56); Albumin, Serum 4.1 g/dL (3.2-5.0); Alkaline Phosphatase 67 U/L (45-117); Anion Gap 7 (5-15); BUN 11 mg/dL (7-18); BUN/Creat Ratio 13.7 RATIO (10-20); Calcium,Total 9.3 mg/dL (8.5-10.1); Chloride 103 mmol/L (98-107); EST Glomerular Filtration Rate 73 mL/min (>60); Est Glom Filt Rate - Afr Amer 88 mL/min (>60); Globulin 3.8 g/dL (2.2-4.2); Glucose 91 mg/dL (74-106); Protein, Total 7.9 g/dL (6.4-8.2); Sodium Level 136 mmol/L (136-145)
== END ==
PROVIDERS: PCP Internal Medicine; Referring Provider Internal Medicine Rheumatology; Visit Provider Internal Medicine Rheumatology
DX: M05.70 Rheumatoid arthritis with rheumatoid factor of unspecified site without organ or systems involvement (principal); Z79.899 Other long term (current) drug therapy; M18.11 Unilateral primary osteoarthritis of first carpometacarpal joint, right hand; M17.0 Bilateral primary osteoarthritis of knee; M16.0 Bilateral primary osteoarthritis of hip; M47.897 Other spondylosis, lumbosacral region; G20 Parkinson's disease; I10 Essential (primary) hypertension; E78.5 Hyperlipidemia, unspecified; E03.9 Hypothyroidism, unspecified
CPT/HCPCS: 36415; 80053; 85025

== ENCOUNTER → 2020-03-31 10:41 | Outpatient (CLI) | payer MEDICARE, OTHER, SELFPAY ==
[2020-03-31 12:29] LABS: Absolute Lymphocyte Count 1.72 X10^3/uL (0.83-4.51); Absolute Neutrophil Count 2.8 X10^3/uL (2.0-7.7); Basophil# 0.04 X10^3/uL; Basophil% 0.7 % (0-1); Eosinophil# 0.11 X10^3/uL; Hematocrit 43.2 % (37-47); Hemoglobin 13.5 g/dL (12.0-15.0); Lymphocyte # 1.72 X10^3/ul (4.0); Lymphocyte % 31.5 % (19-41); Mean Corp Hgb Conc 31.3 g/dL (32-36); Mean Corpuscular Hgb 30.9 pg (27.0-32.0); Mean Corpuscular Volume 98.9 fL (81-99); Mean Platelet Vol. 8.9 fl (6.2-12.0); Monocyte# 0.73 X10^3/uL; Monocyte% 13.4 % (0-10); NRBC Flagged by Analyzer 0 % (0-5); Neutrophil # 2.84 X10^3/uL (2.7-7.7); Platelet Count 313 K/mm3 (150-450); RBC Distribution Width CV 13.2 % (11.6-14.6); RBC Distribution Width SD 48.2 fl (35.1-43.9); Red Blood Count 4.37 M/mm3 (4.2-5.4); White Blood Count 5.5 K/mm3 (4.4-11.0)
[2020-03-31 13:06] LABS: AST(SGOT) 10 U/L (15-37); Alanine Aminotransfer ALT/SGPT 19 U/L (13-56); Albumin, Serum 4.3 g/dL (3.2-5.0); Alkaline Phosphatase 69 U/L (45-117); Anion Gap 7 (5-15); BUN 10 mg/dL (7-18); BUN/Creat Ratio 13.5 RATIO (10-20); Calcium,Total 9.1 mg/dL (8.5-10.1); Chloride 98 mmol/L (98-107); Creatinine, Serum 0.74 mg/dL (0.55-1.02); EST Glomerular Filtration Rate 80 mL/min (>60); Est Glom Filt Rate - Afr Amer 97 mL/min (>60); Globulin 4.1 g/dL (2.2-4.2); Glucose 80 mg/dL (74-106); Potassium 3.8 mmol/L (3.5-5.1); Protein, Total 8.4 g/dL (6.4-8.2); Sodium Level 135 mmol/L (136-145)
== END ==
PROVIDERS: PCP Internal Medicine; Referring Provider Internal Medicine Rheumatology; Visit Provider Internal Medicine Rheumatology
DX: M05.70 Rheumatoid arthritis with rheumatoid factor of unspecified site without organ or systems involvement (principal); Z79.899 Other long term (current) drug therapy; M17.0 Bilateral primary osteoarthritis of knee; M16.0 Bilateral primary osteoarthritis of hip; M47.897 Other spondylosis, lumbosacral region; G20 Parkinson's disease; I10 Essential (primary) hypertension; E78.5 Hyperlipidemia, unspecified; E03.9 Hypothyroidism, unspecified
CPT/HCPCS: 36415; 80053; 85025

== ENCOUNTER → 2020-06-23 14:11 | Outpatient (CLI) | payer MEDICARE, OTHER, SELFPAY ==
[2020-06-23 17:29] LABS: Absolute Lymphocyte Count 1.76 X10^3/uL (0.83-4.51); Absolute Neutrophil Count 3.4 X10^3/uL (2.0-7.7); Basophil# 0.04 X10^3/uL; Basophil% 0.7 % (0-1); Eosinophil# 0.09 X10^3/uL; Eosinophils% 1.5 % (0-5); Hematocrit 43.1 % (37-47); Hemoglobin 13.5 g/dL (12.0-15.0); Lymphocyte # 1.76 X10^3/ul (4.0); Lymphocyte % 29.3 % (19-41); Mean Corp Hgb Conc 31.3 g/dL (32-36); Mean Corpuscular Hgb 31.3 pg (27.0-32.0); Mean Platelet Vol. 9.1 fl (6.2-12.0); Monocyte# 0.71 X10^3/uL; Monocyte% 11.8 % (0-10); NRBC Flagged by Analyzer 0 % (0-5); Neutrophil # 3.38 X10^3/uL (2.7-7.7); Neutrophil % 56.4 % (47-70); Platelet Count 335 K/mm3 (150-450); RBC Distribution Width CV 13.6 % (11.6-14.6); RBC Distribution Width SD 49.9 fl (35.1-43.9); Red Blood Count 4.31 M/mm3 (4.2-5.4)
[2020-06-23 17:58] LABS: ALB/GLOB Ratio 1.1 RATIO (0.9-2.4); AST(SGOT) 11 U/L (15-37); Alanine Aminotransfer ALT/SGPT 14 U/L (13-56); Albumin, Serum 4.2 g/dL (3.2-5.0); Alkaline Phosphatase 74 U/L (45-117); Anion Gap 8 (5-15); BUN 11 mg/dL (7-18); BUN/Creat Ratio 13.9 RATIO (10-20); Calcium,Total 9.3 mg/dL (8.5-10.1); Chloride 104 mmol/L (98-107); Creatinine, Serum 0.79 mg/dL (0.55-1.02); EST Glomerular Filtration Rate 74 mL/min (>60); Est Glom Filt Rate - Afr Amer 90 mL/min (>60); Globulin 3.9 g/dL (2.2-4.2); Glucose 85 mg/dL (74-106); Potassium 4.1 mmol/L (3.5-5.1); Protein, Total 8.1 g/dL (6.4-8.2); Sodium Level 137 mmol/L (136-145)
== END ==
PROVIDERS: PCP Internal Medicine; Referring Provider Internal Medicine Rheumatology; Visit Provider Internal Medicine Rheumatology
DX: M05.70 Rheumatoid arthritis with rheumatoid factor of unspecified site without organ or systems involvement (principal); Z79.899 Other long term (current) drug therapy; M18.11 Unilateral primary osteoarthritis of first carpometacarpal joint, right hand; M17.0 Bilateral primary osteoarthritis of knee; M16.0 Bilateral primary osteoarthritis of hip; M47.897 Other spondylosis, lumbosacral region; G20 Parkinson's disease; I10 Essential (primary) hypertension; E78.5 Hyperlipidemia, unspecified; E03.9 Hypothyroidism, unspecified
CPT/HCPCS: 36415; 80053; 85025

== ENCOUNTER → 2020-09-13 11:15 | Outpatient (CLI) | payer MEDICARE, OTHER, SELFPAY ==
[2020-09-13 15:12] LABS: Absolute Lymphocyte Count 1.38 X10^3/uL (0.83-4.51); Absolute Neutrophil Count 2.8 X10^3/uL (2.0-7.7); Basophil# 0.04 X10^3/uL; Basophil% 0.8 % (0-1); Eosinophil# 0.07 X10^3/uL; Eosinophils% 1.4 % (0-5); Hematocrit 40.9 % (37-47); Hemoglobin 12.8 g/dL (12.0-15.0); Lymphocyte # 1.38 X10^3/ul (4.0); Lymphocyte % 28.5 % (19-41); Mean Corp Hgb Conc 31.3 g/dL (32-36); Mean Corpuscular Hgb 31.2 pg (27.0-32.0); Mean Corpuscular Volume 99.8 fL (81-99); Mean Platelet Vol. 9.2 fl (6.2-12.0); Monocyte% 12.4 % (0-10); NRBC Flagged by Analyzer 0 % (0-5); Neutrophil # 2.75 X10^3/uL (2.7-7.7); Neutrophil % 56.9 % (47-70); Platelet Count 294 K/mm3 (150-450); RBC Distribution Width CV 13.2 % (11.6-14.6); RBC Distribution Width SD 48.4 fl (35.1-43.9); White Blood Count 4.8 K/mm3 (4.4-11.0)
[2020-09-13 15:49] LABS: ALB/GLOB Ratio 1.1 RATIO (0.9-2.4); AST(SGOT) 14 U/L (15-37); Alanine Aminotransfer ALT/SGPT 13 U/L (13-56); Alkaline Phosphatase 71 U/L (45-117); Anion Gap 8 (5-15); BUN 11 mg/dL (7-18); BUN/Creat Ratio 13.5 RATIO (10-20); Calcium,Total 9.1 mg/dL (8.5-10.1); Chloride 103 mmol/L (98-107); Creatinine, Serum 0.82 mg/dL (0.55-1.02); EST Glomerular Filtration Rate 71 mL/min (>60); Est Glom Filt Rate - Afr Amer 86 mL/min (>60); Globulin 3.8 g/dL (2.2-4.2); Glucose 81 mg/dL (74-106); Protein, Total 7.8 g/dL (6.4-8.2); Sodium Level 137 mmol/L (136-145)
== END ==
PROVIDERS: PCP Internal Medicine; Referring Provider Internal Medicine Rheumatology; Visit Provider Internal Medicine Rheumatology
DX: M05.70 Rheumatoid arthritis with rheumatoid factor of unspecified site without organ or systems involvement (principal); Z79.899 Other long term (current) drug therapy; M18.11 Unilateral primary osteoarthritis of first carpometacarpal joint, right hand; M16.0 Bilateral primary osteoarthritis of hip; M17.0 Bilateral primary osteoarthritis of knee; M47.897 Other spondylosis, lumbosacral region; I10 Essential (primary) hypertension; E78.5 Hyperlipidemia, unspecified; E03.9 Hypothyroidism, unspecified
CPT/HCPCS: 36415; 80053; 85025

== ENCOUNTER → 2020-12-07 10:53 | Outpatient (CLI) | payer MEDICARE, OTHER, SELFPAY ==
[2020-12-07 12:43] LABS: Absolute Neutrophil Count 3.3 X10^3/uL (2.0-7.7); Basophil# 0.05 X10^3/uL; Basophil% 0.9 % (0-1); Eosinophil# 0.11 X10^3/uL; Eosinophils% 1.9 % (0-5); Hematocrit 42.1 % (37-47); Hemoglobin 12.9 g/dL (12.0-15.0); Lymphocyte % 24.5 % (19-41); Mean Corp Hgb Conc 30.6 g/dL (32-36); Mean Corpuscular Hgb 30.7 pg (27.0-32.0); Mean Corpuscular Volume 100.2 fL (81-99); Mean Platelet Vol. 9.2 fl (6.2-12.0); NRBC Flagged by Analyzer 0 % (0-5); Neutrophil # 3.34 X10^3/uL (2.7-7.7); Neutrophil % 58.5 % (47-70); Platelet Count 319 K/mm3 (150-450); RBC Distribution Width CV 13.3 % (11.6-14.6); RBC Distribution Width SD 48.9 fl (35.1-43.9); White Blood Count 5.7 K/mm3 (4.4-11.0)
[2020-12-07 13:12] LABS: ALB/GLOB Ratio 1.1 RATIO (0.9-2.4); AST(SGOT) 16 U/L (15-37); Alanine Aminotransfer ALT/SGPT 9 U/L (13-56); Albumin, Serum 4.1 g/dL (3.2-5.0); Alkaline Phosphatase 76 U/L (45-117); Anion Gap 8 (5-15); BUN 11 mg/dL (7-18); BUN/Creat Ratio 15.3 RATIO (10-20); Calcium,Total 9.3 mg/dL (8.5-10.1); Chloride 99 mmol/L (98-107); Creatinine, Serum 0.72 mg/dL (0.55-1.02); EST Glomerular Filtration Rate 83 mL/min (>60); Est Glom Filt Rate - Afr Amer 100 mL/min (>60); Globulin 3.9 g/dL (2.2-4.2); Glucose 82 mg/dL (74-106); Sodium Level 136 mmol/L (136-145)
== END ==
PROVIDERS: PCP Internal Medicine; Referring Provider Internal Medicine Rheumatology; Visit Provider Internal Medicine Rheumatology
DX: M05.70 Rheumatoid arthritis with rheumatoid factor of unspecified site without organ or systems involvement (principal); Z79.899 Other long term (current) drug therapy; M18.11 Unilateral primary osteoarthritis of first carpometacarpal joint, right hand; M17.0 Bilateral primary osteoarthritis of knee; M16.0 Bilateral primary osteoarthritis of hip; M47.897 Other spondylosis, lumbosacral region; G20 Parkinson's disease; I10 Essential (primary) hypertension; E78.5 Hyperlipidemia, unspecified; E03.9 Hypothyroidism, unspecified
CPT/HCPCS: 36415; 80053; 85025

== ENCOUNTER → 2021-02-28 11:48 | Outpatient (CLI) | payer MEDICARE, OTHER, SELFPAY ==
[2021-02-28 16:03] LABS: Absolute Lymphocyte Count 1.62 X10^3/uL (0.83-4.51); Absolute Neutrophil Count 3.3 X10^3/uL (2.0-7.7); Basophil# 0.04 X10^3/uL; Basophil% 0.7 % (0-1); Eosinophil# 0.18 X10^3/uL; Eosinophils% 3.1 % (0-5); Hematocrit 39.6 % (37-47); Hemoglobin 12.6 g/dL (12.0-15.0); Lymphocyte # 1.62 X10^3/ul (0.83-4.51); Lymphocyte % 27.6 % (19-41); Mean Corp Hgb Conc 31.8 g/dL (32-36); Mean Corpuscular Hgb 31.7 pg (27.0-32.0); Mean Corpuscular Volume 99.5 fL (81-99); Mean Platelet Vol. 9.2 fl (6.2-12.0); Monocyte# 0.68 X10^3/uL; Monocyte% 11.6 % (0-10); NRBC Flagged by Analyzer 0 % (0-5); Neutrophil # 3.33 X10^3/uL (2.7-7.7); Neutrophil % 56.7 % (47-70); Platelet Count 308 K/mm3 (150-450); RBC Distribution Width CV 13.3 % (11.6-14.6); RBC Distribution Width SD 47.9 fl (35.1-43.9); Red Blood Count 3.98 M/mm3 (4.2-5.4); White Blood Count 5.9 K/mm3 (4.4-11.0)
[2021-02-28 16:15] LABS: AST(SGOT) 13 U/L (15-37); Alanine Aminotransfer ALT/SGPT 15 U/L (13-56); Albumin, Serum 3.8 g/dL (3.2-5.0); Alkaline Phosphatase 75 U/L (45-117); Anion Gap 7 (5-15); BUN 9 mg/dL (7-18); BUN/Creat Ratio 11.7 RATIO (10-20); Calcium,Total 8.6 mg/dL (8.5-10.1); Chloride 102 mmol/L (98-107); Creatinine, Serum 0.77 mg/dL (0.55-1.02); EST Glomerular Filtration Rate 76 mL/min (>60); Est Glom Filt Rate - Afr Amer 93 mL/min (>60); Globulin 3.9 g/dL (2.2-4.2); Glucose 76 mg/dL (74-106); Protein, Total 7.7 g/dL (6.4-8.2); Sodium Level 135 mmol/L (136-145)
== END ==
PROVIDERS: PCP Internal Medicine; Referring Provider Internal Medicine Rheumatology; Visit Provider Internal Medicine Rheumatology
DX: M05.70 Rheumatoid arthritis with rheumatoid factor of unspecified site without organ or systems involvement (principal); Z79.899 Other long term (current) drug therapy; M15.9 Polyosteoarthritis, unspecified; M18.11 Unilateral primary osteoarthritis of first carpometacarpal joint, right hand; M17.0 Bilateral primary osteoarthritis of knee; M16.0 Bilateral primary osteoarthritis of hip; M47.897 Other spondylosis, lumbosacral region
CPT/HCPCS: 36415; 80053; 85025

== ENCOUNTER → 2021-05-11 13:03 | Outpatient (CLI) | payer MEDICARE, OTHER, SELFPAY ==
[2021-05-11 15:21] LABS: Absolute Lymphocyte Count 1.71 X10^3/uL (0.83-4.51); Basophil# 0.05 X10^3/uL; Basophil% 0.9 % (0-1); Eosinophil# 0.12 X10^3/uL; Eosinophils% 2.1 % (0-5); Hematocrit 43.6 % (37-47); Hemoglobin 13.6 g/dL (12.0-15.0); Lymphocyte # 1.71 X10^3/ul (0.83-4.51); Lymphocyte % 30.4 % (19-41); Mean Corp Hgb Conc 31.2 g/dL (32-36); Mean Corpuscular Hgb 31.3 pg (27.0-32.0); Mean Corpuscular Volume 100.5 fL (81-99); Mean Platelet Vol. 9.4 fl (6.2-12.0); Monocyte# 0.75 X10^3/uL; Monocyte% 13.3 % (0-10); NRBC Flagged by Analyzer 0 % (0-5); Neutrophil # 2.99 X10^3/uL (2.7-7.7); Neutrophil % 53.1 % (47-70); Platelet Count 316 K/mm3 (150-450); RBC Distribution Width CV 13.5 % (11.6-14.6); RBC Distribution Width SD 49.9 fl (35.1-43.9); Red Blood Count 4.34 M/mm3 (4.2-5.4); White Blood Count 5.6 K/mm3 (4.4-11.0)
[2021-05-11 15:32] LABS: AST(SGOT) 10 U/L (15-37); Alanine Aminotransfer ALT/SGPT 13 U/L (13-56); Albumin, Serum 4.2 g/dL (3.2-5.0); Alkaline Phosphatase 68 U/L (45-117); Anion Gap 6 (5-15); BUN 8 mg/dL (7-18); BUN/Creat Ratio 10.2 RATIO (10-20); Calcium,Total 9.5 mg/dL (8.5-10.1); Chloride 102 mmol/L (98-107); Creatinine, Serum 0.78 mg/dL (0.55-1.02); EST Glomerular Filtration Rate 75 mL/min (>60); Est Glom Filt Rate - Afr Amer 90 mL/min (>60); Globulin 4.1 g/dL (2.2-4.2); Glucose 90 mg/dL (74-106); Protein, Total 8.3 g/dL (6.4-8.2); Sodium Level 136 mmol/L (136-145)
== END ==
PROVIDERS: PCP Internal Medicine; Referring Provider Internal Medicine Rheumatology; Visit Provider Internal Medicine Rheumatology
DX: M05.70 Rheumatoid arthritis with rheumatoid factor of unspecified site without organ or systems involvement (principal); Z79.899 Other long term (current) drug therapy; M18.11 Unilateral primary osteoarthritis of first carpometacarpal joint, right hand; M17.0 Bilateral primary osteoarthritis of knee
CPT/HCPCS: 36415; 80053; 85025

== ENCOUNTER → 2021-07-29 12:27 | Outpatient (CLI) | payer MEDICARE, OTHER, SELFPAY ==
[2021-07-29 15:19] LABS: Absolute Lymphocyte Count 1.81 X10^3/uL (0.83-4.51); Absolute Neutrophil Count 2.9 X10^3/uL (2.0-7.7); Basophil# 0.03 X10^3/uL; Basophil% 0.5 % (0-1); Eosinophil# 0.07 X10^3/uL; Eosinophils% 1.3 % (0-5); Hematocrit 41.9 % (37-47); Hemoglobin 13.3 g/dL (12.0-15.0); Lymphocyte # 1.81 X10^3/ul (0.83-4.51); Mean Corp Hgb Conc 31.7 g/dL (32-36); Mean Corpuscular Hgb 31.4 pg (27.0-32.0); Mean Corpuscular Volume 98.8 fL (81-99); Mean Platelet Vol. 9.2 fl (6.2-12.0); Monocyte# 0.69 X10^3/uL; Monocyte% 12.6 % (0-10); NRBC Flagged by Analyzer 0 % (0-5); Neutrophil # 2.88 X10^3/uL (2.7-7.7); Neutrophil % 52.4 % (47-70); Platelet Count 314 K/mm3 (150-450); RBC Distribution Width CV 14.1 % (11.6-14.6); RBC Distribution Width SD 50.8 fl (35.1-43.9); Red Blood Count 4.24 M/mm3 (4.2-5.4); White Blood Count 5.5 K/mm3 (4.4-11.0)
[2021-07-29 15:42] LABS: ALB/GLOB Ratio 1.2 RATIO (0.9-2.4); AST(SGOT) 12 U/L (15-37); Alanine Aminotransfer ALT/SGPT 16 U/L (13-56); Albumin, Serum 4.2 g/dL (3.2-5.0); Alkaline Phosphatase 74 U/L (45-117); Anion Gap 9 (5-15); BUN 10 mg/dL (7-18); BUN/Creat Ratio 13.1 RATIO (10-20); Calcium,Total 9.2 mg/dL (8.5-10.1); Chloride 103 mmol/L (98-107); Creatinine, Serum 0.76 mg/dL (0.55-1.02); EST Glomerular Filtration Rate 77 mL/min (>60); Est Glom Filt Rate - Afr Amer 93 mL/min (>60); Globulin 3.6 g/dL (2.2-4.2); Glucose 90 mg/dL (74-106); Potassium 4.4 mmol/L (3.5-5.1); Protein, Total 7.8 g/dL (6.4-8.2); Sodium Level 138 mmol/L (136-145)
== END ==
PROVIDERS: PCP Internal Medicine; Referring Provider Internal Medicine Rheumatology; Visit Provider Internal Medicine Rheumatology
DX: M05.70 Rheumatoid arthritis with rheumatoid factor of unspecified site without organ or systems involvement (principal); Z79.899 Other long term (current) drug therapy; M18.11 Unilateral primary osteoarthritis of first carpometacarpal joint, right hand; M17.0 Bilateral primary osteoarthritis of knee; M16.0 Bilateral primary osteoarthritis of hip; M47.897 Other spondylosis, lumbosacral region; G20 Parkinson's disease; I10 Essential (primary) hypertension; E78.5 Hyperlipidemia, unspecified; E03.9 Hypothyroidism, unspecified
CPT/HCPCS: 36415; 80053; 85025

== ENCOUNTER 2021-10-19 12:45 | Outpatient (CLI) | payer MEDICARE, OTHER, SELFPAY ==
[2021-10-19 15:25] LABS: Absolute Lymphocyte Count 1.67 X10^3/uL (0.83-4.51); Absolute Neutrophil Count 3.3 X10^3/uL (2.0-7.7); Basophil# 0.05 X10^3/uL; Basophil% 0.8 % (0-1); Eosinophil# 0.08 X10^3/uL; Eosinophils% 1.3 % (0-5); Hematocrit 42.5 % (37-47); Hemoglobin 13.6 g/dL (12.0-15.0); Lymphocyte # 1.67 X10^3/ul (0.83-4.51); Lymphocyte % 27.9 % (19-41); Mean Corpuscular Hgb 31.6 pg (27.0-32.0); Mean Corpuscular Volume 98.8 fL (81-99); Mean Platelet Vol. 9.2 fl (6.2-12.0); Monocyte# 0.85 X10^3/uL; Monocyte% 14.2 % (0-10); NRBC Flagged by Analyzer 0 % (0-5); Neutrophil # 3.33 X10^3/uL (2.7-7.7); Neutrophil % 55.6 % (47-70); Platelet Count 328 K/mm3 (150-450); RBC Distribution Width CV 13.3 % (11.6-14.6); RBC Distribution Width SD 48.1 fl (35.1-43.9)
[2021-10-19 16:10] LABS: AST(SGOT) 12 U/L (15-37); Alanine Aminotransfer ALT/SGPT 14 U/L (13-56); Albumin, Serum 4.1 g/dL (3.2-5.0); Alkaline Phosphatase 80 U/L (45-117); Anion Gap 10 (5-15); BUN 12 mg/dL (7-18); BUN/Creat Ratio 15.8 RATIO (10-20); Calcium,Total 9.4 mg/dL (8.5-10.1); Chloride 102 mmol/L (98-107); Creatinine, Serum 0.76 mg/dL (0.55-1.02); EST Glomerular Filtration Rate 78 mL/min (>60); Est Glom Filt Rate - Afr Amer 94 mL/min (>60); Globulin 4.1 g/dL (2.2-4.2); Glucose 82 mg/dL (74-106); Potassium 4.1 mmol/L (3.5-5.1); Protein, Total 8.2 g/dL (6.4-8.2); Sodium Level 135 mmol/L (136-145)
== END 2021-10-19 23:59 | disposition home or self-care (01) ==
LOC: MTLAB 12:47
PROVIDERS: PCP Internal Medicine; Referring Provider Internal Medicine Rheumatology; Visit Provider Internal Medicine Rheumatology
DX: M05.70 Rheumatoid arthritis with rheumatoid factor of unspecified site without organ or systems involvement (principal); Z79.899 Other long term (current) drug therapy; M18.11 Unilateral primary osteoarthritis of first carpometacarpal joint, right hand; M17.0 Bilateral primary osteoarthritis of knee; M16.0 Bilateral primary osteoarthritis of hip; M47.897 Other spondylosis, lumbosacral region
CPT/HCPCS: 36415; 80053; 85025

== ENCOUNTER → 2022-01-20 | Outpatient (CLI) | payer MEDICARE, OTHER, SELFPAY ==
[2022-01-20 11:57] LABS: Absolute Lymphocyte Count 1.48 X10^3/uL (0.83-4.51); Absolute Neutrophil Count 3.4 X10^3/uL (2.0-7.7); Basophil# 0.03 X10^3/uL; Basophil% 0.5 % (0-1); Eosinophils% 1.8 % (0-5); Hematocrit 42.3 % (37-47); Hemoglobin 13.4 g/dL (12.0-15.0); Lymphocyte # 1.48 X10^3/ul (0.83-4.51); Lymphocyte % 25.9 % (19-41); Mean Corp Hgb Conc 31.7 g/dL (32-36); Mean Corpuscular Hgb 31.7 pg (27.0-32.0); Mean Platelet Vol. 8.5 fl (6.2-12.0); Monocyte# 0.67 X10^3/uL; Monocyte% 11.7 % (0-10); NRBC Flagged by Analyzer 0 % (0-5); Neutrophil # 3.41 X10^3/uL (2.7-7.7); Neutrophil % 59.7 % (47-70); Platelet Count 318 K/mm3 (150-450); RBC Distribution Width CV 13.5 % (11.6-14.6); RBC Distribution Width SD 49.1 fl (35.1-43.9); Red Blood Count 4.23 M/mm3 (4.2-5.4); White Blood Count 5.7 K/mm3 (4.4-11.0)
[2022-01-20 12:35] LABS: AST(SGOT) 11 U/L (15-37); Alanine Aminotransfer ALT/SGPT 9 U/L (13-56); Alkaline Phosphatase 74 U/L (45-117); Anion Gap 6 (5-15); BUN 10 mg/dL (7-18); BUN/Creat Ratio 14.5 RATIO (10-20); Calcium,Total 9.1 mg/dL (8.5-10.1); Chloride 104 mmol/L (98-107); Creatinine, Serum 0.69 mg/dL (0.55-1.02); EST Glomerular Filtration Rate 86 mL/min (>60); Est Glom Filt Rate - Afr Amer 104 mL/min (>60); Glucose 91 mg/dL (74-106); Potassium 3.9 mmol/L (3.5-5.1); Sodium Level 136 mmol/L (136-145)
== END | disposition home or self-care (01) ==
LOC: MTLAB 11:07
PROVIDERS: PCP Internal Medicine; Referring Provider Internal Medicine Rheumatology; Visit Provider Internal Medicine Rheumatology
DX: M05.70 Rheumatoid arthritis with rheumatoid factor of unspecified site without organ or systems involvement (principal); G20 Parkinson's disease; M18.11 Unilateral primary osteoarthritis of first carpometacarpal joint, right hand; M17.0 Bilateral primary osteoarthritis of knee; M16.0 Bilateral primary osteoarthritis of hip; M47.897 Other spondylosis, lumbosacral region; I10 Essential (primary) hypertension; E78.5 Hyperlipidemia, unspecified; E03.9 Hypothyroidism, unspecified; Z79.899 Other long term (current) drug therapy
CPT/HCPCS: 36415; 80053; 85025

== ENCOUNTER → 2022-04-11 | Outpatient (CLI) | payer MEDICARE, OTHER, SELFPAY ==
[2022-04-11 15:25] LABS: Absolute Lymphocyte Count 1.39 X10^3/uL (0.83-4.51); Absolute Neutrophil Count 4.3 X10^3/uL (2.0-7.7); Basophil# 0.03 X10^3/uL; Basophil% 0.4 % (0-1); Eosinophil# 0.11 X10^3/uL; Eosinophils% 1.6 % (0-5); Hematocrit 40.2 % (37-47); Hemoglobin 13.4 g/dL (12.0-15.0); Lymphocyte # 1.39 X10^3/ul (0.83-4.51); Lymphocyte % 20.6 % (19-41); Mean Corp Hgb Conc 33.3 g/dL (32-36); Mean Corpuscular Hgb 32.6 pg (27.0-32.0); Mean Corpuscular Volume 97.8 fL (81-99); Mean Platelet Vol. 8.8 fl (6.2-12.0); Monocyte# 0.92 X10^3/uL; Monocyte% 13.6 % (0-10); NRBC Flagged by Analyzer 0 % (0-5); Neutrophil # 4.28 X10^3/uL (2.7-7.7); Neutrophil % 63.7 % (47-70); Platelet Count 314 K/mm3 (150-450); RBC Distribution Width CV 13.6 % (11.6-14.6); RBC Distribution Width SD 49.1 fl (35.1-43.9); Red Blood Count 4.11 M/mm3 (4.2-5.4); White Blood Count 6.7 K/mm3 (4.4-11.0)
[2022-04-11 15:55] LABS: AST(SGOT) 12 U/L (15-37); Alanine Aminotransfer ALT/SGPT 10 U/L (13-56); Alkaline Phosphatase 72 U/L (45-117); Anion Gap 8 (5-15); BUN 10 mg/dL (7-18); BUN/Creat Ratio 12.3 RATIO (10-20); Chloride 103 mmol/L (98-107); Creatinine, Serum 0.81 mg/dL (0.55-1.02); EST Glomerular Filtration Rate 71 mL/min (>60); Est Glom Filt Rate - Afr Amer 86 mL/min (>60); Glucose 89 mg/dL (74-106); Sodium Level 136 mmol/L (136-145)
== END | disposition home or self-care (01) ==
LOC: MTLAB 14:21
PROVIDERS: PCP Internal Medicine; Referring Provider Internal Medicine Rheumatology; Visit Provider Internal Medicine Rheumatology
DX: M05.70 Rheumatoid arthritis with rheumatoid factor of unspecified site without organ or systems involvement (principal); G20 Parkinson's disease; Z79.899 Other long term (current) drug therapy; M17.0 Bilateral primary osteoarthritis of knee; M16.0 Bilateral primary osteoarthritis of hip; M18.11 Unilateral primary osteoarthritis of first carpometacarpal joint, right hand; M47.897 Other spondylosis, lumbosacral region; I10 Essential (primary) hypertension; E78.5 Hyperlipidemia, unspecified; E03.9 Hypothyroidism, unspecified
CPT/HCPCS: 36415; 80053; 85025

== ENCOUNTER → 2022-07-06 | Outpatient (CLI) | payer MEDICARE, OTHER, SELFPAY ==
[2022-07-06 15:03] LABS: Absolute Lymphocyte Count 1.77 X10^3/uL (0.83-4.51); Absolute Neutrophil Count 3.8 X10^3/uL (2.0-7.7); Basophil# 0.04 X10^3/uL; Basophil% 0.6 % (0-1); Eosinophil# 0.18 X10^3/uL; Eosinophils% 2.7 % (0-5); Erythrocyte Sedimentation Rate 32 mm/hr (0-30); Hematocrit 43.5 % (37-47); Hemoglobin 13.7 g/dL (12.0-15.0); Lymphocyte # 1.77 X10^3/ul (0.83-4.51); Lymphocyte % 26.8 % (19-41); Mean Corp Hgb Conc 31.5 g/dL (32-36); Mean Corpuscular Hgb 31.5 pg (27.0-32.0); Mean Platelet Vol. 9.1 fl (6.2-12.0); Monocyte# 0.77 X10^3/uL; Monocyte% 11.7 % (0-10); NRBC Flagged by Analyzer 0 % (0-5); Neutrophil # 3.83 X10^3/uL (2.7-7.7); Platelet Count 299 K/mm3 (150-450); RBC Distribution Width CV 13.6 % (11.6-14.6); RBC Distribution Width SD 50.1 fl (35.1-43.9); Red Blood Count 4.35 M/mm3 (4.2-5.4); White Blood Count 6.6 K/mm3 (4.4-11.0)
[2022-07-06 15:20] LABS: AST(SGOT) 10 U/L (15-37); Alanine Aminotransfer ALT/SGPT 13 U/L (13-56); Alkaline Phosphatase 72 U/L (45-117); Anion Gap 9 (5-15); BUN 12 mg/dL (7-18); BUN/Creat Ratio 15.8 RATIO (10-20); CRP 3.22 mg/L (0.0-3.0); Calcium,Total 9.4 mg/dL (8.5-10.1); Chloride 100 mmol/L (98-107); Creatinine, Serum 0.76 mg/dL (0.55-1.02); EST Glomerular Filtration Rate 77 mL/min (>60); Est Glom Filt Rate - Afr Amer 93 mL/min (>60); Globulin 4.2 g/dL (2.2-4.2); Glucose 90 mg/dL (74-106); Potassium 4.1 mmol/L (3.5-5.1); Protein, Total 8.2 g/dL (6.4-8.2); Sodium Level 135 mmol/L (136-145)
== END | disposition home or self-care (01) ==
LOC: MTLAB 11:41
PROVIDERS: PCP Internal Medicine; Referring Provider Internal Medicine Rheumatology; Visit Provider Internal Medicine Rheumatology
DX: M05.70 Rheumatoid arthritis with rheumatoid factor of unspecified site without organ or systems involvement (principal); G20 Parkinson's disease; Z79.899 Other long term (current) drug therapy; M18.11 Unilateral primary osteoarthritis of first carpometacarpal joint, right hand; M17.0 Bilateral primary osteoarthritis of knee; M16.0 Bilateral primary osteoarthritis of hip; M47.897 Other spondylosis, lumbosacral region
CPT/HCPCS: 36415; 80053; 85025; 85652; 86140

== ENCOUNTER → 2022-10-04 | Outpatient (CLI) | payer MEDICARE, OTHER, SELFPAY ==
[2022-10-04 15:38] LABS: Absolute Neutrophil Count 3.3 X10^3/uL (2.0-7.7); Basophil# 0.04 X10^3/uL; Basophil% 0.7 % (0-1); Eosinophil# 0.14 X10^3/uL; Eosinophils% 2.5 % (0-5); Hematocrit 41.3 % (37-47); Hemoglobin 12.9 g/dL (12.0-15.0); Mean Corp Hgb Conc 31.2 g/dL (32-36); Mean Corpuscular Hgb 31.6 pg (27.0-32.0); Mean Corpuscular Volume 101.2 fL (81-99); Mean Platelet Vol. 9.2 fl (6.2-12.0); Monocyte# 0.85 X10^3/uL; NRBC Flagged by Analyzer 0 % (0-5); Neutrophil # 3.31 X10^3/uL (2.7-7.7); Neutrophil % 58.6 % (47-70); Platelet Count 303 K/mm3 (150-450); RBC Distribution Width CV 13.3 % (11.6-14.6); RBC Distribution Width SD 49.2 fl (35.1-43.9); Red Blood Count 4.08 M/mm3 (4.2-5.4); White Blood Count 5.7 K/mm3 (4.4-11.0)
[2022-10-04 15:54] LABS: Erythrocyte Sedimentation Rate 34 mm/hr (0-30)
[2022-10-04 16:05] LABS: AST(SGOT) 14 U/L (15-37); Alanine Aminotransfer ALT/SGPT 15 U/L (13-56); Albumin, Serum 3.9 g/dL (3.2-5.0); Alkaline Phosphatase 73 U/L (45-117); Anion Gap 9 (5-15); BUN 11 mg/dL (7-18); BUN/Creat Ratio 10.2 RATIO (10-20); CRP 6.16 mg/L (0.0-3.0); Calcium,Total 8.9 mg/dL (8.5-10.1); Chloride 102 mmol/L (98-107); Creatinine, Serum 1.08 mg/dL (0.55-1.02); EST Glomerular Filtration Rate 51 mL/min (>60); Est Glom Filt Rate - Afr Amer 62 mL/min (>60); Globulin 4.1 g/dL (2.2-4.2); Glucose 75 mg/dL (74-106); Sodium Level 137 mmol/L (136-145)
== END | disposition home or self-care (01) ==
LOC: MTLAB 11:41
PROVIDERS: PCP Internal Medicine; Referring Provider Internal Medicine Rheumatology; Visit Provider Internal Medicine Rheumatology
DX: M05.70 Rheumatoid arthritis with rheumatoid factor of unspecified site without organ or systems involvement (principal); G20 Parkinson's disease; Z79.899 Other long term (current) drug therapy; M15.9 Polyosteoarthritis, unspecified; M47.897 Other spondylosis, lumbosacral region; I10 Essential (primary) hypertension; E78.5 Hyperlipidemia, unspecified; E03.9 Hypothyroidism, unspecified
CPT/HCPCS: 36415; 80053; 85025; 85652; 86140

== ENCOUNTER → 2023-01-04 | Outpatient (CLI) | payer MEDICARE, OTHER, SELFPAY ==
[2023-01-04 15:52] LABS: Absolute Neutrophil Count 4.4 X10^3/uL (2.0-7.7); Basophil# 0.04 X10^3/uL; Basophil% 0.6 % (0-1); Eosinophils% 1.4 % (0-5); Hemoglobin 13.3 g/dL (12.0-15.0); Lymphocyte % 23.8 % (19-41); Mean Corp Hgb Conc 30.9 g/dL (32-36); Mean Corpuscular Hgb 31.6 pg (27.0-32.0); Mean Corpuscular Volume 102.1 fL (81-99); Mean Platelet Vol. 9.3 fl (6.2-12.0); Monocyte# 0.87 X10^3/uL; Monocyte% 12.2 % (0-10); NRBC Flagged by Analyzer 0 % (0-5); Neutrophil # 4.39 X10^3/uL (2.7-7.7); Neutrophil % 61.6 % (47-70); Platelet Count 309 K/mm3 (150-450); RBC Distribution Width CV 13.6 % (11.6-14.6); RBC Distribution Width SD 50.5 fl (35.1-43.9); Red Blood Count 4.21 M/mm3 (4.2-5.4); White Blood Count 7.1 K/mm3 (4.4-11.0)
[2023-01-04 16:23] LABS: AST(SGOT) 15 U/L (15-37); Alanine Aminotransfer ALT/SGPT 17 U/L (13-56); Albumin, Serum 3.9 g/dL (3.2-5.0); Alkaline Phosphatase 87 U/L (45-117); Anion Gap 11 (5-15); BUN 13 mg/dL (7-18); BUN/Creat Ratio 14.4 RATIO (10-20); Calcium,Total 8.9 mg/dL (8.5-10.1); Chloride 101 mmol/L (98-107); EST Glomerular Filtration Rate 63 mL/min (>60); Est Glom Filt Rate - Afr Amer 77 mL/min (>60); Globulin 3.9 g/dL (2.2-4.2); Glucose 95 mg/dL (74-106); Potassium 4.2 mmol/L (3.5-5.1); Protein, Total 7.8 g/dL (6.4-8.2); Sodium Level 135 mmol/L (136-145)
== END | disposition home or self-care (01) ==
LOC: MTLAB 11:42
PROVIDERS: PCP Internal Medicine; Referring Provider Internal Medicine Rheumatology; Visit Provider Internal Medicine Rheumatology
DX: M05.70 Rheumatoid arthritis with rheumatoid factor of unspecified site without organ or systems involvement (principal); Z79.899 Other long term (current) drug therapy
CPT/HCPCS: 36415; 80053; 85025

== ENCOUNTER → 2023-03-09 | Outpatient (CLI) | payer MEDICARE, OTHER, SELFPAY ==
[2023-03-09 15:10] LABS: Absolute Lymphocyte Count 1.84 X10^3/uL (0.83-4.51); Absolute Neutrophil Count 3.3 X10^3/uL (2.0-7.7); Basophil# 0.04 X10^3/uL; Basophil% 0.7 % (0-1); Eosinophil# 0.07 X10^3/uL; Eosinophils% 1.2 % (0-5); Hematocrit 43.6 % (37-47); Hemoglobin 14.1 g/dL (12.0-15.0); Lymphocyte # 1.84 X10^3/ul (0.83-4.51); Lymphocyte % 30.9 % (19-41); Mean Corp Hgb Conc 32.3 g/dL (32-36); Mean Corpuscular Volume 99.1 fL (81-99); Mean Platelet Vol. 9.5 fl (6.2-12.0); Monocyte% 11.7 % (0-10); NRBC Flagged by Analyzer 0 % (0-5); Neutrophil % 55.3 % (47-70); Platelet Count 273 K/mm3 (150-450); RBC Distribution Width CV 13.3 % (11.6-14.6); RBC Distribution Width SD 48.9 fl (35.1-43.9)
[2023-03-09 15:39] LABS: ALB/GLOB Ratio 1.1 RATIO (0.9-2.4); AST(SGOT) 10 U/L (15-37); Alanine Aminotransfer ALT/SGPT 10 U/L (13-56); Albumin, Serum 4.2 g/dL (3.2-5.0); Alkaline Phosphatase 84 U/L (45-117); Anion Gap 8 (5-15); BUN 13 mg/dL (7-18); Calcium,Total 9.5 mg/dL (8.5-10.1); Chloride 101 mmol/L (98-107); Creatinine, Serum 0.81 mg/dL (0.55-1.02); EST Glomerular Filtration Rate 71 mL/min (>60); Est Glom Filt Rate - Afr Amer 86 mL/min (>60); Globulin 3.9 g/dL (2.2-4.2); Glucose 81 mg/dL (74-106); Protein, Total 8.1 g/dL (6.4-8.2); Sodium Level 134 mmol/L (136-145)
== END | disposition home or self-care (01) ==
LOC: MTLAB 11:42
PROVIDERS: PCP Internal Medicine; Referring Provider Internal Medicine Rheumatology; Visit Provider Internal Medicine Rheumatology
DX: M05.70 Rheumatoid arthritis with rheumatoid factor of unspecified site without organ or systems involvement (principal); Z79.899 Other long term (current) drug therapy
CPT/HCPCS: 36415; 80053; 85025

== ENCOUNTER → 2023-05-23 | Outpatient (CLI) | payer MEDICARE, OTHER, SELFPAY ==
[2023-05-23 15:07] LABS: Absolute Neutrophil Count 3.7 X10^3/uL (2.0-7.7); Basophil# 0.04 X10^3/uL; Basophil% 0.6 % (0-1); Eosinophil# 0.06 X10^3/uL; Eosinophils% 0.9 % (0-5); Hematocrit 41.4 % (37-47); Hemoglobin 13.2 g/dL (12.0-15.0); Lymphocyte % 26.7 % (19-41); Mean Corp Hgb Conc 31.9 g/dL (32-36); Mean Corpuscular Volume 100.5 fL (81-99); Mean Platelet Vol. 8.8 fl (6.2-12.0); Monocyte% 14.1 % (0-10); NRBC Flagged by Analyzer 0 % (0-5); Neutrophil # 3.66 X10^3/uL (2.7-7.7); Neutrophil % 57.5 % (47-70); Platelet Count 299 K/mm3 (150-450); RBC Distribution Width CV 13.4 % (11.6-14.6); RBC Distribution Width SD 49.2 fl (35.1-43.9); Red Blood Count 4.12 M/mm3 (4.2-5.4); White Blood Count 6.4 K/mm3 (4.4-11.0)
[2023-05-23 16:02] LABS: AST(SGOT) 10 U/L (15-37); Alanine Aminotransfer ALT/SGPT 15 U/L (13-56); Albumin, Serum 4.1 g/dL (3.2-5.0); Alkaline Phosphatase 82 U/L (45-117); Anion Gap 9 (5-15); BUN 12 mg/dL (7-18); Calcium,Total 9.2 mg/dL (8.5-10.1); Chloride 103 mmol/L (98-107); EST Glomerular Filtration Rate 73 mL/min (>60); Est Glom Filt Rate - Afr Amer 88 mL/min (>60); Globulin 4.1 g/dL (2.2-4.2); Glucose 79 mg/dL (74-106); Potassium 3.8 mmol/L (3.5-5.1); Protein, Total 8.2 g/dL (6.4-8.2); Sodium Level 137 mmol/L (136-145)
== END | disposition home or self-care (01) ==
LOC: MTLAB 11:43
PROVIDERS: PCP Internal Medicine; Referring Provider Internal Medicine Rheumatology; Visit Provider Internal Medicine Rheumatology
DX: M05.70 Rheumatoid arthritis with rheumatoid factor of unspecified site without organ or systems involvement (principal); Z79.899 Other long term (current) drug therapy; M15.9 Polyosteoarthritis, unspecified
CPT/HCPCS: 36415; 80053; 85025

== ENCOUNTER → 2023-08-24 | Outpatient (CLI) | payer MEDICARE, OTHER, SELFPAY ==
[2023-08-24 13:28] LABS: Absolute Lymphocyte Count 1.57 X10^3/uL (0.83-4.51); Absolute Neutrophil Count 3.9 X10^3/uL (2.0-7.7); Basophil# 0.04 X10^3/uL; Basophil% 0.6 % (0-1); Eosinophil# 0.09 X10^3/uL; Eosinophils% 1.4 % (0-5); Hemoglobin 13.1 g/dL (12.0-15.0); Lymphocyte # 1.57 X10^3/ul (0.83-4.51); Lymphocyte % 24.8 % (19-41); Mean Corp Hgb Conc 31.2 g/dL (32-36); Mean Corpuscular Hgb 31.2 pg (27.0-32.0); Monocyte# 0.72 X10^3/uL; Monocyte% 11.4 % (0-10); NRBC Flagged by Analyzer 0 % (0-5); Neutrophil % 61.5 % (47-70); Platelet Count 306 K/mm3 (150-450); RBC Distribution Width CV 13.6 % (11.6-14.6); RBC Distribution Width SD 49.5 fl (35.1-43.9); White Blood Count 6.3 K/mm3 (4.4-11.0)
[2023-08-24 13:41] LABS: AST(SGOT) 12 U/L (15-37); Alanine Aminotransfer ALT/SGPT 9 U/L (13-56); Albumin, Serum 3.9 g/dL (3.2-5.0); Alkaline Phosphatase 74 U/L (45-117); Anion Gap 6 (5-15); BUN 13 mg/dL (7-18); BUN/Creat Ratio 15.8 RATIO (10-20); Calcium,Total 9.2 mg/dL (8.5-10.1); Chloride 104 mmol/L (98-107); Creatinine, Serum 0.82 mg/dL (0.55-1.02); EST Glomerular Filtration Rate 70 mL/min (>60); Est Glom Filt Rate - Afr Amer 85 mL/min (>60); Globulin 3.9 g/dL (2.2-4.2); Glucose 90 mg/dL (74-106); Potassium 4.2 mmol/L (3.5-5.1); Protein, Total 7.8 g/dL (6.4-8.2); Sodium Level 134 mmol/L (136-145)
== END | disposition home or self-care (01) ==
LOC: MTLAB 11:38
PROVIDERS: PCP Internal Medicine; Referring Provider Internal Medicine Rheumatology; Visit Provider Internal Medicine Rheumatology
DX: M05.70 Rheumatoid arthritis with rheumatoid factor of unspecified site without organ or systems involvement (principal); Z79.899 Other long term (current) drug therapy; M15.9 Polyosteoarthritis, unspecified
CPT/HCPCS: 36415; 80053; 85025

== ENCOUNTER → 2023-11-15 | Outpatient (CLI) | payer MEDICARE, OTHER, SELFPAY ==
[2023-11-15 15:33] LABS: Absolute Lymphocyte Count 1.44 X10^3/uL (0.83-4.51); Absolute Neutrophil Count 3.5 X10^3/uL (2.0-7.7); Basophil# 0.06 X10^3/uL; Eosinophil# 0.07 X10^3/uL; Eosinophils% 1.2 % (0-5); Hematocrit 42.5 % (37-47); Hemoglobin 13.5 g/dL (12.0-15.0); Lymphocyte # 1.44 X10^3/ul (0.83-4.51); Lymphocyte % 25.1 % (19-41); Mean Corp Hgb Conc 31.8 g/dL (32-36); Mean Corpuscular Hgb 31.4 pg (27.0-32.0); Mean Corpuscular Volume 98.8 fL (81-99); Mean Platelet Vol. 9.8 fl (6.2-12.0); Monocyte# 0.68 X10^3/uL; Monocyte% 11.8 % (0-10); NRBC Flagged by Analyzer 0 % (0-5); Neutrophil # 3.48 X10^3/uL (2.7-7.7); Neutrophil % 60.7 % (47-70); POSITIVE COUNT YES; RBC Distribution Width CV 14.3 % (11.6-14.6); RBC Distribution Width SD 51.3 fl (35.1-43.9); White Blood Count 5.7 K/mm3 (4.4-11.0)
[2023-11-15 15:52] LABS: Differential Indicated SCAN CRITERIA MET
[2023-11-15 16:08] LABS: AST(SGOT) 17 U/L (15-37); Alanine Aminotransfer ALT/SGPT 15 U/L (13-56); Alkaline Phosphatase 73 U/L (45-117); Anion Gap 8 (5-15); BUN 12 mg/dL (7-18); BUN/Creat Ratio 13.4 RATIO (10-20); Calcium,Total 9.5 mg/dL (8.5-10.1); Chloride 104 mmol/L (98-107); EST Glomerular Filtration Rate 63 mL/min (>60); Est Glom Filt Rate - Afr Amer 77 mL/min (>60); Globulin 4.1 g/dL (2.2-4.2); Glucose 92 mg/dL (74-106); Potassium 4.1 mmol/L (3.5-5.1); Protein, Total 8.1 g/dL (6.4-8.2); Sodium Level 137 mmol/L (136-145)
[2023-11-15 16:11] LABS: Platelet Estimate ADEQUATE (ADEQ)
[2023-11-15 16:12] LABS: Anisocytosis RARE; Macrocytosis RARE; Red Cell Morphology N CHROM NORMAL (NORM C&C)
== END | disposition home or self-care (01) ==
LOC: MTLAB 11:15
PROVIDERS: PCP Internal Medicine; Referring Provider Internal Medicine Rheumatology; Visit Provider Internal Medicine Rheumatology
DX: M05.70 Rheumatoid arthritis with rheumatoid factor of unspecified site without organ or systems involvement (principal); Z79.899 Other long term (current) drug therapy
CPT/HCPCS: 36415; 80053; 85025

== ENCOUNTER → 2024-02-06 | Outpatient (CLI) | payer MEDICARE, OTHER, SELFPAY ==
[2024-02-06 15:41] LABS: Absolute Lymphocyte Count 1.53 X10^3/uL (0.83-4.51); Absolute Neutrophil Count 3.1 X10^3/uL (2.0-7.7); Basophil# 0.04 X10^3/uL; Basophil% 0.7 % (0-1); Eosinophil# 0.14 X10^3/uL; Eosinophils% 2.5 % (0-5); Hematocrit 40.1 % (37-47); Hemoglobin 12.8 g/dL (12.0-15.0); Lymphocyte # 1.53 X10^3/ul (0.83-4.51); Lymphocyte % 26.8 % (19-41); Mean Corp Hgb Conc 31.9 g/dL (32-36); Mean Corpuscular Hgb 32.1 pg (27.0-32.0); Mean Corpuscular Volume 100.5 fL (81-99); Mean Platelet Vol. 9.5 fl (6.2-12.0); Monocyte# 0.88 X10^3/uL; Monocyte% 15.4 % (0-10); NRBC Flagged by Analyzer 0 % (0-5); Neutrophil % 54.4 % (47-70); Platelet Count 304 K/mm3 (150-450); RBC Distribution Width CV 13.2 % (11.6-14.6); RBC Distribution Width SD 48.9 fl (35.1-43.9); Red Blood Count 3.99 M/mm3 (4.2-5.4); White Blood Count 5.7 K/mm3 (4.4-11.0)
[2024-02-06 16:39] LABS: AST(SGOT) 15 U/L (15-37); Alanine Aminotransfer ALT/SGPT 12 U/L (13-56); Alkaline Phosphatase 76 U/L (45-117); Anion Gap 8 (5-15); BUN 11 mg/dL (7-18); BUN/Creat Ratio 11.9 RATIO (10-20); Calcium,Total 9.5 mg/dL (8.5-10.1); Chloride 102 mmol/L (98-107); Creatinine, Serum 0.93 mg/dL (0.55-1.02); EST Glomerular Filtration Rate 61 mL/min (>60); Est Glom Filt Rate - Afr Amer 74 mL/min (>60); Glucose 92 mg/dL (74-106); Potassium 4.1 mmol/L (3.5-5.1); Sodium Level 136 mmol/L (136-145)
== END | disposition home or self-care (01) ==
LOC: MTLAB 11:24
PROVIDERS: PCP Internal Medicine; Referring Provider Internal Medicine Rheumatology; Visit Provider Internal Medicine Rheumatology
DX: M05.70 Rheumatoid arthritis with rheumatoid factor of unspecified site without organ or systems involvement (principal); E03.9 Hypothyroidism, unspecified; Z79.899 Other long term (current) drug therapy
CPT/HCPCS: 36415; 80053; 84443; 85025

== ENCOUNTER → 2024-05-05 | Outpatient (CLI) | payer MEDICARE, OTHER, SELFPAY ==
[2024-05-05 15:04] LABS: Absolute Lymphocyte Count 1.57 X10^3/uL (0.83-4.51); Basophil# 0.05 X10^3/uL; Basophil% 0.8 % (0-1); Eosinophil# 0.32 X10^3/uL; Eosinophils% 4.8 % (0-5); Hematocrit 41.2 % (37-47); Hemoglobin 13.1 g/dL (12.0-15.0); Lymphocyte # 1.57 X10^3/ul (0.83-4.51); Lymphocyte % 23.6 % (19-41); Mean Corp Hgb Conc 31.8 g/dL (32-36); Mean Corpuscular Hgb 31.6 pg (27.0-32.0); Mean Corpuscular Volume 99.3 fL (81-99); Mean Platelet Vol. 9.1 fl (6.2-12.0); Monocyte# 0.71 X10^3/uL; Monocyte% 10.7 % (0-10); NRBC Flagged by Analyzer 0 % (0-5); Neutrophil # 3.99 X10^3/uL (2.7-7.7); Neutrophil % 59.8 % (47-70); Platelet Count 308 K/mm3 (150-450); RBC Distribution Width CV 13.8 % (11.6-14.6); RBC Distribution Width SD 49.4 fl (35.1-43.9); Red Blood Count 4.15 M/mm3 (4.2-5.4); White Blood Count 6.7 K/mm3 (4.4-11.0)
[2024-05-05 15:30] LABS: AST(SGOT) 9 U/L (15-37); Alanine Aminotransfer ALT/SGPT 11 U/L (13-56); Albumin, Serum 3.9 g/dL (3.2-5.0); Alkaline Phosphatase 78 U/L (45-117); Anion Gap 7 (5-15); BUN 12 mg/dL (7-18); BUN/Creat Ratio 14.7 RATIO (10-20); Calcium,Total 9.5 mg/dL (8.5-10.1); Chloride 100 mmol/L (98-107); Creatinine, Serum 0.82 mg/dL (0.55-1.02); EST Glomerular Filtration Rate 71 mL/min (>60); Est Glom Filt Rate - Afr Amer 86 mL/min (>60); Glucose 98 mg/dL (74-106); Potassium 3.9 mmol/L (3.5-5.1); Protein, Total 7.9 g/dL (6.4-8.2); Sodium Level 135 mmol/L (136-145)
== END | disposition home or self-care (01) ==
LOC: MTLAB 11:44
PROVIDERS: PCP Internal Medicine; Referring Provider Internal Medicine Rheumatology; Visit Provider Internal Medicine Rheumatology
DX: M05.70 Rheumatoid arthritis with rheumatoid factor of unspecified site without organ or systems involvement (principal); Z79.899 Other long term (current) drug therapy
CPT/HCPCS: 36415; 80053; 85025

== ENCOUNTER → 2024-07-28 | Outpatient (CLI) | payer MEDICARE, OTHER, SELFPAY ==
[2024-07-28 15:18] LABS: Absolute Lymphocyte Count 1.79 X10^3/uL (0.83-4.51); Absolute Neutrophil Count 3.8 X10^3/uL (2.0-7.7); Basophil# 0.06 X10^3/uL; Basophil% 0.9 % (0-1); Eosinophil# 0.15 X10^3/uL; Eosinophils% 2.3 % (0-5); Hematocrit 41.7 % (37-47); Hemoglobin 13.3 g/dL (12.0-15.0); Lymphocyte # 1.79 X10^3/ul (0.83-4.51); Lymphocyte % 27.2 % (19-41); Mean Corp Hgb Conc 31.9 g/dL (32-36); Mean Corpuscular Hgb 31.7 pg (27.0-32.0); Mean Corpuscular Volume 99.3 fL (81-99); Mean Platelet Vol. 8.9 fl (6.2-12.0); Monocyte# 0.82 X10^3/uL; Monocyte% 12.4 % (0-10); NRBC Flagged by Analyzer 0 % (0-5); Neutrophil # 3.76 X10^3/uL (2.7-7.7); Platelet Count 312 K/mm3 (150-450); RBC Distribution Width CV 13.5 % (11.6-14.6); RBC Distribution Width SD 48.9 fl (35.1-43.9); White Blood Count 6.6 K/mm3 (4.4-11.0)
[2024-07-28 15:50] LABS: ALB/GLOB Ratio 1.1 RATIO (0.9-2.4); AST(SGOT) 11 U/L (15-37); Alanine Aminotransfer ALT/SGPT 12 U/L (13-56); Albumin, Serum 4.2 g/dL (3.2-5.0); Alkaline Phosphatase 78 U/L (45-117); Anion Gap 8 (5-15); BUN 10 mg/dL (7-18); BUN/Creat Ratio 12.2 RATIO (10-20); Calcium,Total 9.8 mg/dL (8.5-10.1); Chloride 104 mmol/L (98-107); Creatinine, Serum 0.82 mg/dL (0.55-1.02); EST Glomerular Filtration Rate 70 mL/min (>60); Est Glom Filt Rate - Afr Amer 85 mL/min (>60); Globulin 3.9 g/dL (2.2-4.2); Glucose 89 mg/dL (74-106); Potassium 4.1 mmol/L (3.5-5.1); Protein, Total 8.1 g/dL (6.4-8.2); Sodium Level 138 mmol/L (136-145)
== END | disposition home or self-care (01) ==
LOC: MTLAB 12:36
PROVIDERS: PCP Internal Medicine; Referring Provider Internal Medicine Rheumatology; Visit Provider Internal Medicine Rheumatology
DX: M05.70 Rheumatoid arthritis with rheumatoid factor of unspecified site without organ or systems involvement (principal); M18.11 Unilateral primary osteoarthritis of first carpometacarpal joint, right hand; M17.0 Bilateral primary osteoarthritis of knee; M16.0 Bilateral primary osteoarthritis of hip; Z79.899 Other long term (current) drug therapy
CPT/HCPCS: 36415; 80053; 85025

== ENCOUNTER → 2024-10-29 | Outpatient (CLI) | payer MEDICARE, OTHER, SELFPAY ==
[2024-10-29 17:54] LABS: Absolute Lymphocyte Count 1.66 X10^3/uL (0.83-4.51); Absolute Neutrophil Count 4.3 X10^3/uL (2.0-7.7); Basophil# 0.04 X10^3/uL; Basophil% 0.6 % (0-1); Eosinophils% 1.4 % (0-5); Hematocrit 40.7 % (37-47); Hemoglobin 13.1 g/dL (12.0-15.0); Lymphocyte # 1.66 X10^3/ul (0.83-4.51); Lymphocyte % 23.2 % (19-41); Mean Corp Hgb Conc 32.2 g/dL (32-36); Mean Corpuscular Hgb 31.4 pg (27.0-32.0); Mean Corpuscular Volume 97.6 fL (81-99); Mean Platelet Vol. 9.8 fl (6.2-12.0); Monocyte# 1.03 X10^3/uL; Monocyte% 14.4 % (0-10); NRBC Flagged by Analyzer 0 % (0-5); Platelet Count 292 K/mm3 (150-450); RBC Distribution Width CV 13.6 % (11.6-14.6); RBC Distribution Width SD 48.3 fl (35.1-43.9); Red Blood Count 4.17 M/mm3 (4.2-5.4); White Blood Count 7.2 K/mm3 (4.4-11.0)
[2024-10-29 18:40] LABS: ALB/GLOB Ratio 1.4 RATIO (0.9-2.4); AST(SGOT) 20 U/L (<=31); Alanine Aminotransfer ALT/SGPT < 5 U/L (<=34); Albumin, Serum 4.5 g/dL (3.4-4.8); Alkaline Phosphatase 72 U/L (35-104); Anion Gap 16 (5-15); BUN 14 mg/dL (4-19); BUN/Creat Ratio 17.1 RATIO (10-20); Calcium,Total 9.7 mg/dL (7.6-11.0); Carbon Dioxide 22.1 mmol/L (21.0-32.0); Chloride 99 mmol/L (98-108); EST Glomerular Filtration Rate 72 (>60); Globulin 3.2 g/dL (2.2-4.2); Glucose 83 mg/dL (70-99); Potassium 4.2 mmol/L (3.3-5.1); Protein, Total 7.7 g/dL (5.9-8.4); Sodium Level 137 mmol/L (133-145); Total Bilirubin 0.53 mg/dL (0.00-1.30)
== END | disposition home or self-care (01) ==
PROVIDERS: PCP Internal Medicine; Referring Provider Internal Medicine Rheumatology; Visit Provider Internal Medicine Rheumatology
DX: M05.70 Rheumatoid arthritis with rheumatoid factor of unspecified site without organ or systems involvement (principal); Z79.899 Other long term (current) drug therapy
CPT/HCPCS: 36415; 80053; 85025

== ENCOUNTER → 2025-01-23 | Outpatient (CLI) | payer MEDICARE, OTHER, SELFPAY ==
[2025-01-23 12:24] LABS: Absolute Lymphocyte Count 1.44 X10^3/uL (0.83-4.51); Absolute Neutrophil Count 3.6 X10^3/uL (2.0-7.7); Basophil# 0.04 X10^3/uL; Basophil% 0.7 % (0-1); Eosinophil# 0.14 X10^3/uL; Eosinophils% 2.4 % (0-5); Hematocrit 39.6 % (37-47); Hemoglobin 12.9 g/dL (12.0-15.0); Lymphocyte # 1.44 X10^3/ul (0.83-4.51); Lymphocyte % 24.6 % (19-41); Mean Corp Hgb Conc 32.6 g/dL (32-36); Mean Corpuscular Hgb 32.3 pg (27.0-32.0); Mean Platelet Vol. 8.9 fl (6.2-12.0); Monocyte# 0.64 X10^3/uL; Monocyte% 10.9 % (0-10); NRBC Flagged by Analyzer 0 % (0-5); Neutrophil # 3.58 X10^3/uL (2.7-7.7); Neutrophil % 61.1 % (47-70); Platelet Count 318 K/mm3 (150-450); RBC Distribution Width CV 13.7 % (11.6-14.6); RBC Distribution Width SD 50.1 fl (35.1-43.9); White Blood Count 5.9 K/mm3 (4.4-11.0)
[2025-01-23 13:16] LABS: ALB/GLOB Ratio 1.4 RATIO (0.9-2.4); AST(SGOT) 18 U/L (<=31); Alanine Aminotransfer ALT/SGPT < 5 U/L (<=34); Albumin, Serum 4.4 g/dL (3.4-4.8); Alkaline Phosphatase 74 U/L (35-104); Anion Gap 13 (5-15); BUN 13 mg/dL (4-19); BUN/Creat Ratio 16.6 RATIO (10-20); Calcium,Total 9.3 mg/dL (7.6-11.0); Carbon Dioxide 24.6 mmol/L (21.0-32.0); Chloride 99 mmol/L (98-108); Creatinine, Serum 0.78 mg/dL (0.70-1.20); EST Glomerular Filtration Rate 74 (>60); Globulin 3.1 g/dL (2.2-4.2); Glucose 90 mg/dL (70-99); Potassium 4.3 mmol/L (3.3-5.1); Protein, Total 7.6 g/dL (5.9-8.4); Sodium Level 137 mmol/L (133-145)
== END | disposition home or self-care (01) ==
LOC: MTLAB 10:15
PROVIDERS: Internal Medicine Rheumatology; PCP Internal Medicine; Referring Provider Internal Medicine; Visit Provider Internal Medicine
DX: M05.70 Rheumatoid arthritis with rheumatoid factor of unspecified site without organ or systems involvement (principal); M15.9 Polyosteoarthritis, unspecified; Z79.899 Other long term (current) drug therapy; E03.9 Hypothyroidism, unspecified
CPT/HCPCS: 36415; 80053; 84443; 85025

== ENCOUNTER → 2025-04-17 | Outpatient (CLI) | payer MEDICARE, OTHER, SELFPAY ==
[2025-04-17 12:54] LABS: Hematocrit 40.6 % (37-47); Hemoglobin 13.2 g/dL (12.0-15.0); Immature Granulocytes Count 0.010 X10^3/uL (0.0-0.0); Mean Corp Hgb Conc 32.5 g/dL (32-36); Mean Corpuscular Volume 98.3 fL (81-99); Mean Platelet Vol. 9.2 fl (6.2-12.0); NRBC Flagged by Analyzer 0 % (0-5); Platelet Count 304 K/mm3 (150-450); RBC Distribution Width CV 13.1 % (11.6-14.6); RBC Distribution Width SD 46.5 fl (35.1-43.9); Red Blood Count 4.13 M/mm3 (4.2-5.4); White Blood Count 6.6 K/mm3 (4.4-11.0)
[2025-04-17 14:06] LABS: AST(SGOT) 18 U/L (<=31); Alanine Aminotransfer ALT/SGPT < 5 U/L (<=34); Albumin, Serum 4.4 g/dL (3.4-4.8); Alkaline Phosphatase 79 U/L (35-104); Anion Gap 16 (5-15); BUN 13 mg/dL (4-19); BUN/Creat Ratio 16.6 RATIO (10-20); Calcium,Total 9.6 mg/dL (7.6-11.0); Carbon Dioxide 22.7 mmol/L (21.0-32.0); Chloride 97 mmol/L (98-108); Globulin 3.3 g/dL (2.2-4.2); Glucose 88 mg/dL (70-99); Potassium 4.1 mmol/L (3.3-5.1)
== END | disposition home or self-care (01) ==
LOC: MTLAB 11:27
PROVIDERS: PCP Internal Medicine; Referring Provider Internal Medicine Rheumatology; Visit Provider Internal Medicine Rheumatology
DX: M05.70 Rheumatoid arthritis with rheumatoid factor of unspecified site without organ or systems involvement (principal); Z79.899 Other long term (current) drug therapy
CPT/HCPCS: 36415; 80053; 85025

== ENCOUNTER → 2025-07-13 | Outpatient (CLI) | payer MEDICARE, OTHER, SELFPAY ==
[2025-07-13 15:01] LABS: Hematocrit 39.7 % (37-47); Hemoglobin 12.8 g/dL (12.0-15.0); Immature Granulocytes Count 0.010 X10^3/uL (0.0-0.0); Mean Corp Hgb Conc 32.2 g/dL (32-36); Mean Corpuscular Volume 98.5 fL (81-99); Mean Platelet Vol. 8.8 fl (6.2-12.0); NRBC Flagged by Analyzer 0 % (0-5); Platelet Count 329 K/mm3 (150-450); RBC Distribution Width CV 13.8 % (11.6-14.6); RBC Distribution Width SD 49.8 fl (35.1-43.9); Red Blood Count 4.03 M/mm3 (4.2-5.4); White Blood Count 5.9 K/mm3 (4.4-11.0)
[2025-07-13 15:31] LABS: AST(SGOT) 18 U/L (<=31); Alanine Aminotransfer ALT/SGPT < 5 U/L (<=34); Albumin, Serum 4.4 g/dL (3.4-4.8); Alkaline Phosphatase 81 U/L (35-104); Anion Gap 14 (5-15); BUN 11 mg/dL (4-19); BUN/Creat Ratio 14.8 RATIO (10-20); Calcium,Total 9.4 mg/dL (7.6-11.0); Carbon Dioxide 23.7 mmol/L (21.0-32.0); Chloride 100 mmol/L (98-108); Globulin 3.2 g/dL (2.2-4.2); Glucose 87 mg/dL (70-99); Potassium 4.1 mmol/L (3.3-5.1)
== END | disposition home or self-care (01) ==
LOC: MTLAB 12:33
PROVIDERS: PCP Internal Medicine; Referring Provider Internal Medicine Rheumatology; Visit Provider Internal Medicine Rheumatology
DX: M05.70 Rheumatoid arthritis with rheumatoid factor of unspecified site without organ or systems involvement (principal); Z79.899 Other long term (current) drug therapy
CPT/HCPCS: 36415; 80053; 85025